=== PATIENT | male | born 1960 | race Caucasian/White ===

== ENCOUNTER 2020-07-23 08:48 | Inpatient (IN) | payer OTHER ==
--- NOTE | 2020-07-23 09:01 | BHS.RME ---
Substance Use & Tx History - Substance Use History Alcohol Substance amount: 1 -1.5 pint vokda Frequency of use: Daily Substance route: Oral Date of Last Use: 07/23/20 (started age 13) Heroin Substance amount: $20 Frequency of use: Daily Substance route: Injection (ex: intravenous or skin popping) Date of Last Use: 07/22/20 (started age 17) Cocaine- Powder Substance amount: $20 Frequency of use: Daily Substance route: Injection (ex: intravenous or skin popping) Date of Last Use: 07/22/20 (started age 18) Nicotine Substance amount: 1 pack Frequency of use: Daily Substance route: Smoking Date of Last Use: 07/23/20 (started age 23) Physical/Psych/Mental Status - Behavior General Behavior: Increased activity (restlessness, agitation) Eye Contact: Normal - Cooperativeness Cooperativeness: Cooperative - Thinking Thought Processes: Tight, Logical, Goal Directed - Physical Health Problems Is patient presently having any pain?: No Does patient presently have any injuries (include location): No Does patient currently have a fever: No Is patient : No CIWA Nausea/Vomitin-Mild Nausea/No Vomiting Muscle Tremors: 4-Moderate,w/Arms Extend Anxiety: 3 Agitation: 3 Paroxysmal Sweats: 6 Orientation: 0-Oriented Tacttile Disturbances: 1-Very Mild Itch/Numbness Auditory Disturbances: 0-None Visual Disturbances: 0-None Headache: 1-Very Mild CIWA-Ar Total Score: 19
[2020-07-23 09:35] VITALS: BMI 23.6
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
[2020-07-23] MEDS ORDERED: BISMUTH SUBSALICYLATE 262 MG/15 ML BTL PO PRN (10:18)
[2020-07-23] MEDS ORDERED: MENTHOL/PHENOL 1 EACH UD MM PRN (10:18)
[2020-07-23] MEDS ORDERED: MAGNESIUM CITRATE 300 ML BOTTLE PO PRN (10:18)
[2020-07-23] MEDS ORDERED: NICOTINE POLACRILEX 2 MG GUM BUC PRN (10:18)
[2020-07-23] MEDS ORDERED: METHOCARBAMOL 500 MG TABLET PO PRN (10:18)
[2020-07-23] MEDS ORDERED: ONDANSETRON *ODT* 4 MG TABLET SL PRN (10:18)
[2020-07-23] MEDS ORDERED: chlordiazePOXIDE HCL 25 MG CAPSULE PO PRN (10:18)
[2020-07-23] MEDS ORDERED: ACETAMINOPHEN 325 MG TABLET (FP) PO PRN ×2 (10:18)
[2020-07-23] MEDS ORDERED: IBUPROFEN 400 MG TABLET (FP) PO PRN (10:18)
[2020-07-23] MEDS ORDERED: MAG HYDROX/AL HYDROX/SIMETH 30 ML UNIT-DOSE CUP PO PRN (10:18)
[2020-07-23] MEDS ORDERED: MAGNESIUM HYDROX 2400MG/30ML ORAL SUSPENSION 30 ML CUP PO PRN (10:18)
[2020-07-23] MEDS ORDERED: AMMONIUM LACTATE 12% LOTION 225 GM BOTTLE TP PRN (10:21)
--- OUTSIDE RECORDS SUMMARY | 2020-07-23 11:32 | XMS ---
:1960 Author Organization [facility] Care Team Providers Name Role Phone Bryn De Leon Unavailable Alayna Anne Unavailable Vicky Hendrickson (R) Unavailable Cristian Metzger Unavailable NURSING, FM Unavailable Unavailable Antwon Unavailable JULIANA Unavailable Unavailable Behrouzi Unavailable Lona (R) Unavailable Alton Unavailable Vinnie Unavailable Re-disclosure Warning The records that you are about to access may contain information from federally- assisted alcohol or drug abuse programs. If such information is present, then the following federally mandated warning applies: This information has been disclosed to you from records protected by federal confidentiality rules (42 CFR part 2). The federal rules prohibit you from making any further disclosure of this information unless further disclosure is expressly permitted by the written consent of the person to whom it pertains or as otherwise permitted by 42 CFR part 2. A general authorization for the release of medical or other information is NOT sufficient for this purpose. The Federal rules restrict any use of the information to criminally investigate or prosecute any alcohol or drug abuse patient.The records that you are about to access may contain highly sensitive health information, the redisclosure of which is protected by Article 27-F of the [facility] Public Health law. If you continue you may haveaccess to information: Regarding HIV / AIDS; Provided by facilities licensed or operated by the [facility] Office of Mental Health; or Provided by the [facility] Office for People With Developmental Disabilities. If such information is present, then the following [facility] mandated warning applies: This information has been disclosed to you from confidential records which are protected by state law. State law prohibits you from making any further disclosure of this information without the specific written consent of the person to whom it pertains, or as otherwise permitted by law. Any unauthorized further disclosure in violation of state law may result in a fine or nursing home sentence or both. A general authorization for the release of medical or other information is NOT sufficient authorization for further disclosure. Allergies and Adverse Reactions Type Description Substance Reaction Status Data Source(s ) SYSTEMIC NO KNOWN ALLERGIES NO KNOWN ALLERGIES [facility]IC ALLERGIES NOT ON FILE ALLERGIES NOT ON [facility] Encounters Encounter Providers Location Date Indications Data Source(s ) Outpatient Attender: Rob 06/30/2020 [facility] [place] 09:28:17 AM [facility] EDT - 06/30/2020 09:51:46 AM EDT Patient admitted. Outpatient Attender: Vicky 06/26/2020 11:16:35 AM The [facility] Patient admitted. Outpatient Attender: JACQUE ANDREWS 06/01/2020 02:02:36 PM The [facility] Patient admitted. Outpatient Attender: Rob 06/01/2020 01:17:53 PM The [facility] Patient admitted. Outpatient Attender: JACQUE ANDREWS 06/01/2020 11:56:13 AM The [facility] Patient admitted. Outpatient Attender: JACQUE ANDREWS 04/28/2020 03:50:15 PM The [facility] Patient admitted. Outpatient Attender: Vicky 04/22/2020 03:55:12 PM The [facility] Patient admitted. Outpatient Attender: JACQUE ANDREWS 03/11/2020 02:08:46 PM The [facility] - 03/12/2020 01:05:33 Family [facility] EDT Patient admitted. Outpatient Attender: Alayna Anne 03/10/2020 04:59:07 PM The [facility] Patient admitted. Outpatient Attender: Rob 03/10/2020 09:06:01 AM The [facility] Patient admitted. Outpatient Attender: Vicky 02/27/2020 11:28:52 AM The [facility] - 02/28/2020 [facility]alt 11:57:00 AM EDT Patient admitted. Outpatient Attender: JACQUE ANDREWS 02/26/2020 05:01:36 PM The [facility] Patient admitted. Outpatient Attender: JACQUE ANDREWS 02/19/2020 12:00:00 AM The [facility] - 02/19/2020 05:40:08 [facility] PM EDT Patient admitted. Outpatient Attender: Sowmya 02/12/2020 09:03:35 AM The [facility] Patient admitted. Outpatient Attender: JACQUE ANDREWS 02/12/2020 12:00:00 AM The [facility] - 02/12/2020 11:10:00 [facility] AM EDT Patient admitted. Outpatient Attender: Vicky 02/07/2020 08:24:02 AM The [facility] - 02/07/2020 [facility] 12:08:31 PM EDT Patient admitted. Outpatient Attender: Vicky 02/05/2020 08:44:37 AM The [facility] 02/05/2020 [facility] 04:16:41 PM EDT Patient admitted. Outpatient Attender: JACQUE ANDREWS 02/05/2020 12:00:00 AM The [facility] - 02/05/2020 11:11:14 [facility] AM EDT Patient admitted. Outpatient Attender: Vicky 02/04/2020 01:31:46 PM The [facility] Patient admitted. Outpatient Attender: Pranav Kapoor 01/28/2020 08:24:29 AM EDT The [facility] 01/28/2020 10:09:32 AM Health EDT Patient admitted. Outpatient Attender: JACQUE ANDREWS 01/28/2020 12:00:00 AM The [facility] - 01/28/2020 12:10:56 [facility] PM EDT Patient admitted. Outpatient Attender: Karen 01/27/2020 03:16:52 PM The [facility] Patient admitted. Outpatient Attender: Dada Dang 01/16/2020 08:24:13 AM The [facility] - 01/16/2020 [facility] 07:15:16 PM EDT Patient admitted. Outpatient Attender: Sowmya 12/17/2019 09:48:15 AM The [facility] Patient admitted. Outpatient Attender: Sowmya 11/20/2019 04:25:56 PM The [facility] Patient admitted. Outpatient Attender: JULIETTE 09/26/2019 01:22:45 PM The [facility] Patient admitted. Outpatient Attender: Sowmya 09/21/2019 09:54:17 AM The [facility] Patient admitted. Outpatient Attender: Tomasa Del Castillo 09/05/2019 01:26:37 PM The [facility] Patient admitted. Outpatient Attender: Toamsa Del Castillo 08/29/2019 05:15:18 PM The [facility] Patient admitted. Outpatient Attender: Tomasa Del Castillo 08/07/2019 12:35:29 PM The [facility] - 08/07/2019 [facility] 01:30:45 PM EDT Patient admitted. Outpatient Attender: Bryn 07/23/2019 03:38:40 PM The [facility] Patient admitted. Outpatient Attender: Bryn 07/12/2019 03:55:[address] [facility] - 07/19/2019 Family [facility] ealth 01:13:04 PM EDT Patient admitted. Outpatient Attender: Tomasa Del Castillo 07/01/2019 01:15:41 PM The [facility] - 07/01/2019 [facility] 01:28:43 AM EDT Patient admitted. Outpatient Attender: Dada Dang 05/30/2019 11:36:41 AM The [facility] - 05/30/2019 [facility] 01:28:15 PM EDT Patient admitted. Immunizations Vaccine Date Status Description Data Source(s) Influenza, 06/27/2019 completed Influenza, 06/27/2019 [facility] 12:00:00 AM EDT [facility] For Family [place] Canine Carla Canine [facility] Kidney, Kidney, Quadrivalent Quadrivalent Medications Medication Brand Start Product Dose Route Administrative Pharmacy [facility] Indications Reaction Description Data Name Date Form Instructions Instructions Source(s) Glecaprevir Oral active Hep C w/o Ta ke 3 The -Pibrentasv 2019 {tbl} coma, tablets by [place] ir 100-40 12:00: chronic mouth amarilys y For Family MG Oral Tab 00 AM (HCC) Health EDT Hep C w/o coma, chronic (HCC) Aspirin aspirin 06/29/2020 81 Oral active Essential T gamaliel The 81 MG 81 MG 12:00:00 AM mg hypertension ONE [place] Delayed Oral EC EDT tablet For Fam tod Release tablet (81 mg Health Oral total) Tablet by aspirin mouth 81 MG daily Oral EC tablet Essential hypertension ALBUTEROL 9740-1502-66 06/29/2020 216 Inhalation active Mod erate Inhale The SULFATE 12:00:00 AM ug persistent TWO [place] (VENTOLIN EDT asthma puffs For Fam tod HFA) 108 without (216 Health (90 Base) complication mcg MCG/ACT total) Inhalation every Aero Soln 4-5 hours Moderate persistent asthma without compl ication Ketoconazole Ketoconazole 2 06/29/2020 active [place] a Apply The 20 MG/ML % Apply 12:00:00 AM cristine ibarra e [place] Topical Cream externally EDT daily as For Family Ketoconazole 2 Cream needed to Health % Apply affected externally area Cream Tinea cruris gabapentin Gabapentin 06/29/2020 300 Oral active Schizoaffe ctive Take ONE The 300 MG Oral 300 MG Oral 12:00:00 AM mg disorder, capsule [place] Capsule Cap EDT bipolar type (300 mg F or Family Gabapentin (HCC) total) Health 300 MG Oral by mouth Cap 2 (two) times a day Schizoaffective disorder, bipolar type ( HCC) Lisinopril lisinopril 06/29/2020 20 Oral active Essential Take The 20 MG Oral 20 MG Oral 12:00:00 AM mg hypertensio n ONE [place] Tablet tablet EDT tablet For Famil y lisinopril (20 mg Health 20 MG Oral total) tablet by mouth daily Essential hypertension 60 ACTUAT Mometasone 06/29/2020 220 Inhalation active Mild asthma, Inhale The mometasone Furoate 220 12:00:00 AM ug unspecifie d ONE puff [place] furoate 0.2 MCG/INH EDT whether (220 mc g For Family MG/ACTUAT Inhalation complicated, t otal) Health Dry Powder AEROSOL unspecified nigh tly Inhaler POWDER, whether Mometasone BREATH persistent Furoate 220 ACTIVATED MCG/INH Inhalation AEROSOL POWDER, BREATH ACTIVATED Mild asthma, unspecified whether complic ated, unspecified whether persistent aripiprazole Aripiprazole 06/01/2020 10 Oral active Schizo affective Take The 10 MG Oral 10 MG Oral 12:00:00 AM mg disorder, ONE [place] Tablet Tab EDT bipolar type tablet For Family Aripiprazole (HCC) (10 mg Heal th 10 MG Oral total) Tab by mouth daily Schizoaffective disorder, bipolar type ( HCC) PARoxetine [address]-3 06/01/2020 40 Oral active Schizoaf fective Take The HCl 40 MG 12:00:00 AM mg disorder, ONE [place] Oral Tab EDT bipolar type tablet F or Family (HCC) (40 mg Health total) by mouth daily Schizoaffective disorder, bipolar type ( HCC) gabapentin Gabapentin 06/01/2020 300 Oral aborted Schizoaff ective Take ONE The 300 MG Oral 300 MG Oral 12:00:00 AM mg disorder, capsule [place] Capsule Cap EDT bipolar type (300 mg F or Family Gabapentin (HCC) total) Health 300 MG Oral by mouth Cap 2 (two) times a day Schizoaffective disorder, bipolar type ( HCC) gabapentin Gabapentin 03/10/2020 300 Oral aborted Schizoaff ective Take ONE The 300 MG Oral 300 MG Oral 12:00:00 AM mg disorder, capsule [place] Capsule Cap EDT bipolar type (300 mg F or Family Gabapentin (HCC) total) Health 300 MG Oral by mouth Cap 2 (two) times a day Schizoaffective disorder, bipolar type ( HCC) Take ONE capsule (300 mg total) by mouth 2 (two) times a day PARoxetine [address]-6 03/10/2020 40 Oral aborted Schizoa ffective Take The HCl 40 MG 12:00:00 AM mg disorder, ONE [place] Oral Tab EDT bipolar type tablet F or Family (HCC) (40 mg Health total) by mouth daily Schizoaffective disorder, bipolar type ( HCC) Take ONE tablet (40 mg total) by mouth d aily aripiprazole Aripiprazole 03/10/2020 10 Oral aborted Schiz oaffective Take The 10 MG Oral 10 MG Oral 12:00:00 AM mg disorder, ONE [place] Tablet Tab EDT bipolar type tablet For Family Aripiprazole (HCC) (10 mg Heal th 10 MG Oral total) Tab by mouth daily Schizoaffective disorder, bipolar type ( HCC) Take ONE tablet (10 mg total) by mouth d aily NARCAN KIT 02/28/2020 active Preventive Administer 1 The 12:00:00 AM measure mg each In stitute EDT nostril as For Famil y needed. May Health repeat in 3-5 minutes. Dispensed by physician. Preventive measure Administer 1 mg each nostril as needed. May repeat in 3-5 minutes. Dispensed by physician. atorvastatin Atorvastatin 02/05/2020 10 Oral active Hyperlipidemia, Take ONE The 10 MG Oral Calcium 10 MG 12:00:00 AM mg unspecif ied tablet [place] Tablet Oral Tab EDT hyperlipidemia (10 mg For Family Atorvastatin type total) Healt h Calcium 10 MG by mouth Oral Tab nightly Hyperlipidemia, unspecified hyperlipidem ia type Take ONE tablet (10 mg total) by mouth n ightly Lisinopril lisinopril 02/05/2020 20 Oral aborted Essential Take The 20 MG Oral 20 MG Oral 12:00:00 AM mg hypertensio n ONE [place] Tablet tablet EDT tablet For Famil y lisinopril (20 mg Health 20 MG Oral total) tablet by mouth daily Essential hypertension Take ONE tablet (20 mg total) by mouth d aily Aspirin aspirin 02/05/2020 81 Oral aborted Essential Take The 81 MG 81 MG 12:00:00 AM mg hypertension ONE [place] Delayed Oral EC EDT tablet For Fam tod Release tablet (81 mg Health Oral total) Tablet by aspirin mouth 81 MG daily Oral EC tablet Essential hypertension Take ONE tablet (81 mg total) by mouth d aily ALBUTEROL [id number] 02/05/2020 216 Inhalation aborted Mo derate Inhale The SULFATE 12:00:00 AM ug persistent TWO [place] (VENTOLIN EDT asthma puffs For Fam tod HFA) 108 without (216 Health (90 Base) complication mcg MCG/ACT total) Inhalation every Aero Soln 4-5 hours Moderate persistent asthma without compl ication Inhale TWO puffs (216 mcg total) every 4 -5 hours PARoxetine [address]-0 01/16/2020 40 Oral completed Schiz oaffective Take The HCl 40 MG 12:00:00 AM mg disorder, ONE [place] Oral Tab EDT bipolar type tablet F or Family (HCC) (40 mg Health total) by mouth daily Schizoaffective disorder, bipolar type ( HCC) Take ONE tablet (40 mg total) by mouth d aily gabapentin Gabapentin 12/17/2019 300 Oral completed S chizoaffective Take ONE The 300 MG Oral 300 MG Oral 12:00:00 AM mg disorder, capsule [place] Capsule Cap EST bipolar type (300 mg F or Family Gabapentin (HCC) total) Health 300 MG Oral by mouth Cap 2 (two) times a day Schizoaffective disorder, bipolar type ( HCC) Take ONE capsule (300 mg total) by mouth 2 (two) times a day 60 ACTUAT Mometasone 12/17/2019 220 Inhalation aborted Mild asthma, Inhale The mometasone Furoate 220 12:00:00 AM ug unspecifie d ONE puff [place] furoate 0.2 MCG/INH EST whether (220 mc g For Family MG/ACTUAT Inhalation complicated, t otal) Health Dry Powder AEROSOL unspecified nigh tly Inhaler POWDER, whether Mometasone BREATH persistent Furoate 220 ACTIVATED MCG/INH Inhalation AEROSOL POWDER, BREATH ACTIVATED Mild asthma, unspecified whether complic ated, unspecified whether persistent Inhale ONE puff (220 mcg total) nightly 60 ACTUAT Mometasone 11/20/2019 220 Inhalation complet ed Mild asthma, Inhale The mometasone Furoate 220 12:00:00 AM ug unspecifie d ONE puff [place] furoate 0.2 MCG/INH EST whether (220 mc g For Family MG/ACTUAT Inhalation complicated, t otal) Health Dry Powder AEROSOL unspecified nigh tly Inhaler POWDER, whether Mometasone BREATH persistent Furoate 220 ACTIVATED MCG/INH Inhalation AEROSOL POWDER, BREATH ACTIVATED Mild asthma, unspecified whether complic ated, unspecified whether persistent Inhale ONE puff (220 mcg total) nightly Albuterol albuterol 07/12/2019 2.5 completed Moderate Take ONE vial The 0.83 MG/ML (2.5 12:00:00 AM mg persistent ( 2.5 mg [place] Inhalant MG/3ML) EDT asthma total) via For Family Solution 0.083% without nebulizatio n Health albuterol Inhalation complication e very 4-6 (2.5 nebulizer (four-six) MG/3ML) solution hours as 0.083% needed for Inhalation shortness of nebulizer breath or solution cough Moderate persistent asthma without compl ication Take ONE vial (2.5 mg total) via nebuliz ation every 4-6 (four-six) hours as needed for shortness of breath or cough Respiratory [id number] 07/12/2019 active Moderate Use with The Therapy 12:00:00 AM persistent albu terol [place] Supplies EDT asthma solution For F amily (NEBULIZER without every 4-6 H ealth COMPRESSOR) complication hours as Does not needed apply Kit Moderate persistent asthma without compl ication Use with albuterol solution every 4-6 ho urs as needed Nutritional [id number] 07/12/2019 1 Oral active Unintent ional Take 1 The Supplements 12:00:00 AM {can} weight loss Can by [place] (ENSURE EDT mouth For Family COMPLETE) 2 Health Oral Liquid (two) times a day Unintentional weight loss Take 1 Can by mouth 2 (two) times a day atorvastatin Atorvastatin 07/12/2019 10 Oral complet ed Hyperlipidemia, Take ONE The 10 MG Oral Calcium 10 MG 12:00:00 AM mg unspecif ied tablet [place] Tablet Oral Tab EDT hyperlipidemia (10 mg For Family Atorvastatin type total) Healt h Calcium 10 MG by mouth Oral Tab nightly Hyperlipidemia, unspecified hyperlipidem ia type Take ONE tablet (10 mg total) by mouth n ightly 120 ACTUAT Fluticasone 07/12/2019 110 Inhalation completed Moderate Inhale The Fluticasone Propionate 12:00:00 AM ug persistent ONE [place] propionate HFA (FLOVENT EDT asthma puff For Family 0.11 HFA) 110 without (110 Health MG/ACTUAT MCG/ACT complication mcg Metered Dose Inhalation total) Inhaler Aerosol 2 (two) Fluticasone times a Propionate day HFA (FLOVENT HFA) 110 MCG/ACT Inhalation Aerosol Moderate persistent asthma without compl ication Inhale ONE puff (110 mcg total) 2 (two) times a day ALBUTEROL [id number] 07/12/2019 216 Inhalation completed Moderat e Inhale The SULFATE 12:00:00 AM ug persistent TWO [place] (VENTOLIN EDT asthma puffs For Fam tod HFA) 108 without (216 Health (90 Base) complication mcg MCG/ACT total) Inhalation every Aero Soln 4-5 hours Moderate persistent asthma without compl ication Inhale TWO puffs (216 mcg total) every 4 -5 hours Aspirin aspirin 07/12/2019 81 Oral completed Essential Take The 81 MG 81 MG 12:00:00 AM mg hypertension ONE [place] Delayed Oral EC EDT tablet For Fam tod Release tablet (81 mg Health Oral total) Tablet by aspirin mouth 81 MG daily Oral EC tablet Essential hypertension Take ONE tablet (81 mg total) by mouth d aily Clotrimazole clotrimazole 1 07/12/2019 completed P aronychia Apply to The 10 MG/ML % Apply 12:00:00 AM of right af fected [place] Topical Cream externally EDT middle are twice For Family clotrimazole 1 cream finger daily H ealth % Apply externally cream Paronychia of right middle finger Apply to affected are twice daily Lisinopril lisinopril 07/12/2019 20 Oral completed Essenti al Take The 20 MG Oral 20 MG Oral 12:00:00 AM mg hypertensio n ONE [place] Tablet tablet EDT tablet For Famil y lisinopril (20 mg Health 20 MG Oral total) tablet by mouth daily Essential hypertension Take ONE tablet (20 mg total) by mouth d ailjayna gabapentin Gabapentin 07/12/2019 300 Oral completed S chizoaffective Take ONE The 300 MG Oral 300 MG Oral 12:00:00 AM mg disorder, capsule [place] Capsule Cap EDT bipolar type (300 mg F or Family Gabapentin (HCC) total) Health 300 MG Oral by mouth Cap 2 (two) times a day Schizoaffective disorder, bipolar type ( HCC) Take ONE capsule (300 mg total) by mouth 2 (two) times a day PARoxetine [id number] 07/01/2019 40 Oral completed Schiz oaffective Take The HCl 40 MG 12:00:00 AM mg disorder, ONE [place] Oral Tab EDT bipolar type tablet F or Family (HCC) (40 mg Health total) by mouth daily Schizoaffective disorder, bipolar type ( HCC) Take ONE tablet (40 mg total) by mouth d aily aripiprazole Aripiprazole 07/01/2019 10 Oral aborted Schiz oaffective Take The 10 MG Oral (ABILIFY) 10 12:00:00 AM mg disorder, ONE [place] Tablet MG Oral Tab EDT bipolar type tab let For Family Aripiprazole (HCC) (10 mg Heal th (ABILIFY) 10 total) MG Oral Tab by mouth daily Schizoaffective disorder, bipolar type ( HCC) FLUCELVAX [id number] 06/27/2019 active DIRECTED The QUADRIVALENT 12:00:00 AM INTRA MUSCULARLY [place] Intramuscular EDT For Fa edmund [facility] Health DIRECTED INTRAMUSCULARLY lidocaine [id number] 05/30/2019 25 Subcutaneous complete d Paronychia The (XYLOCAINE) 01:30:00 PM mg of right [place] 1 % EDT middle For Family injection finger Health Paronychia of right middle finger Clotrimazole clotrimazole 1 05/30/2019 aborted Par onychia Apply to The 10 MG/ML % Apply 12:00:00 AM of right af fected [place] Topical Cream externally EDT middle are twice For Family clotrimazole 1 cream finger daily H ealth % Apply externally cream Paronychia of right middle finger Sulfamethoxazole 800 MG / Sulfamethoxazole-Trimethoprim 05/30/2019 1 Oral active Paronychia Take The Trimethoprim 160 MG Oral (BACTRIM DS) 800-160 MG Oral 12:00:00 AM {tbl} of right ONE [place] Tablet Tab EDT middle tablet For Famil y Sulfamethoxazole-Trimethoprim finge r by Health (BACTRIM DS) 800-160 MG Oral mouth 2 Tab (two) times a day for 10 days for 10 days Paronychia of right middle finger aripiprazole Aripiprazole 02/25/2019 10 Oral aborted Schiz oaffective Take The 10 MG Oral (ABILIFY) 10 12:00:00 AM mg disorder, ONE [place] Tablet MG Oral Tab EDT bipolar type tab let For Family Aripiprazole (HCC) (10 mg Heal th (ABILIFY) 10 total) MG Oral Tab by mouth daily Schizoaffective disorder, bipolar type ( HCC) PARoxetine [id number] 02/25/2019 40 Oral aborted Schizoa ffective Take The HCl 40 MG 12:00:00 AM mg disorder, ONE [place] Oral Tab EDT bipolar type tablet F or Family (HCC) (40 mg Health total) by mouth daily Schizoaffective disorder, bipolar type ( HCC) ALBUTEROL [id number] 02/05/2019 216 Inhalation aborted Moderate Inhale TWO The SULFATE 108 12:00:00 AM ug persistent puffs (216 [place] (90 Base) EDT asthma mcg total) Fo r Family MCG/ACT without every 4-6 Heal th Inhalation complication (four- six) Aero Soln hours as needed Moderate persistent asthma without compl ication 120 ACTUAT Fluticasone 02/05/2019 110 Inhalation aborted Mo derate Inhale The Fluticasone Propionate 12:00:00 AM ug persistent ONE [place] propionate HFA (FLOVENT EDT asthma puff For Family 0.11 HFA) 110 without (110 Health MG/ACTUAT MCG/ACT complication mcg Metered Dose Inhalation total) Inhaler Aerosol 2 (two) Fluticasone times a Propionate day HFA (FLOVENT HFA) 110 MCG/ACT Inhalation Aerosol Moderate persistent asthma without compl ication atorvastatin Atorvastatin 02/05/2019 10 Oral aborted Hyperlipidemia, Take ONE The 10 MG Oral Calcium 10 MG 12:00:00 AM mg unspecif ied tablet [place] Tablet Oral Tab EDT hyperlipidemia (10 mg For Family Atorvastatin type total) Healt h Calcium 10 MG by mouth Oral Tab nightly Hyperlipidemia, unspecified hyperlipidem ia type Nystatin 100 Nystatin 02/05/2019 completed Tinea p laura, Apply to The UNT/MG [id number] 12:00:00 AM unspecified af fected [place] Topical UNIT/GM EDT laterality area For Family Powder Apply twice Health Nystatin externally daily [id number] Powder UNIT/GM Apply externally Powder Tinea pedis, unspecified laterality Apply to affected area twice daily Lisinopril lisinopril 02/05/2019 20 Oral aborted Essential Take The 20 MG Oral 20 MG Oral 12:00:00 AM mg hypertensio n ONE [place] Tablet tablet EDT tablet For Famil y lisinopril (20 mg Health 20 MG Oral total) tablet by mouth daily Essential hypertension Aspirin aspirin 02/05/2019 81 Oral aborted Essential Take The 81 MG 81 MG 12:00:00 AM mg hypertension ONE [place] Delayed Oral EC EDT tablet For Fam tod Release tablet (81 mg Health Oral total) Tablet by aspirin mouth 81 MG daily Oral EC tablet Essential hypertension Insurance Providers Payer name Policy type Policy ID Covered Covered democrat's Policy P marisa / Coverage democrat ID relationship to [employer] ormation type [employer] [id number] SP [id number] H [place]ICAID [place] [id number] Self [id number] [place] [id number] Self [id number] [employer] [id number] Self [id number] [employer] [id number] Self [id number] [employer] HARP [id number] [place]ICAID [place] Medicaid 125 125 MEDICAID [place] Medicaid 125 125 [employer] HARP [id number] Problems, Conditions, and Diagnoses Code Display Name Description Problem Type Effective Data Dates Source(s) F11.21 Opioid use Opioid use [id number] 02/05/2020 The [place] disorder, moderate, disorder, moderate, 12:00:0 0 AM For Family in early remission, in early remission, EDT Health on maintenance on maintenance therapy therapy B18.2 Hep C w/o coma, Hep C w/o coma, [id number] 02/05/2020 The [place] chronic chronic 12:00:00 AM For Family EDT Health R74.0 Transaminitis Transaminitis [id number] 09/23/2019 [facility] 12:00:00 AM For Family EST Health B35.6 Tinea cruris Tinea cruris Diagnosis 06/26/2020 The [facility] [place] 11:16:35 AM For Family EDT Health Transfer Note Transfer Note Diagnosis 06/01/2020 The [facility] 02:02:36 PM For Family EDT Health Missed Appointment Missed Appointment Diagnosis 0 The [place] 03:50:15 PM For Family EDT Health B18.2 Chronic viral Chronic viral Diagnosis 04/23/2020 The [facility] hepatitis C hepatitis C 02:37:43 PM For Family EDT Health M54.30 Sciatica, Sciatica, Diagnosis 02/27/2020 The [place] unspecified side unspecified side 11:28:52 AM F or Family EDT Health Z29.9 Encounter for Encounter for Diagnosis 02/27/2020 The [facility] [place] prophylactic prophylactic 11:28:52 AM For Famil y measures, measures, EDT Health unspecified unspecified F11.20 Opioid dependence, Opioid dependence, Diagnosis 0 The [place] uncomplicated uncomplicated 11:28:52 AM For Fam tod EDT Health Enrollment Enrollment Diagnosis 02/19/2020 The [place] 11:40:37 AM For Family EDT Health Schizoaffective Schizoaffective Diagnosis 02/19/2020 The [place] Disorder Disorder 11:40:37 AM For Family EDT Health Virtual Visit Virtual Visit Diagnosis 02/19/2020 The [facility] [place] (Telephone Only) (Telephone Only) 11:40:37 AM F or Family EDT Health Request For Appt Request For Appt Diagnosis 02/12/2020 Th e [place] 09:03:35 AM For Family EDT Health R35.0 Frequency of Frequency of Diagnosis 02/07/2020 The [facility] micturition micturition 08:24:02 AM For Family EDT Health Z12.11 Encounter for Encounter for Diagnosis 02/07/2020 The [facility] screening for screening for 08:24:02 AM For Leonard baron malignant neoplasm malignant neoplasm EDT Health of colon of colon R10.32 Left lower quadrant Left lower quadrant Diagnosis 020 The [place] pain pain 08:24:02 AM For Family EDT Health Physical Physical Diagnosis 02/07/2020 The [place] 08:24:02 AM For Family EDT Health F11.21 Opioid dependence, Opioid dependence, Diagnosis 0 The [place] in remission in remission 03:39:34 PM For Famil y EDT Health E78.5 Hyperlipidemia, Hyperlipidemia, Diagnosis 02/05/2020 The [place] unspecified unspecified 08:44:37 AM For Family EDT Health M10.00 Idiopathic gout, Idiopathic gout, Diagnosis 02/05/2020 Th e [place] unspecified site unspecified site 08:44:37 AM F or Family EDT Health N48.9 Disorder of penis, Disorder of penis, Diagnosis 0 The [place] unspecified unspecified 08:44:37 AM For Family EDT Health F17.200 Nicotine Nicotine Diagnosis 02/05/2020 The [place] dependence, dependence, 08:44:37 AM For Family unspecified, unspecified, EDT Health uncomplicated uncomplicated M54.32 Sciatica, left side Sciatica, left side Diagnosis 020 [facility] [place] 08:44:37 AM For Family EDT Health M54.31 Sciatica, right Sciatica, right Diagnosis 02/05/2020 The [place] side side 08:44:37 AM For Family EDT Health Z71.89 Other specified Other specified Diagnosis 02/05/2020 The [place] counseling counseling 08:44:37 AM For Family EDT Health Other Other Diagnosis 02/04/2020 The [place] 01:31:46 PM For Family EDT Health Z71.3 Dietary counseling Dietary counseling Diagnosis 0 The [place] and surveillance and surveillance 08:24:29 AM F or Family EDT Health Z68.22 Body mass index Body mass index Diagnosis 01/28/2020 The [place] (BMI) 22.0-22.9, (BMI) 22.0-22.9, 08:24:29 AM F or Family adult adult EDT Health R63.3 Feeding Feeding Diagnosis 01/28/2020 The [place] difficulties difficulties 08:24:29 AM For Famil y EDT Health Outreach Outreach Diagnosis 01/27/2020 [facility] [place] 03:16:52 PM For Family EDT Health Results Results Diagnosis 09/26/2019 The [place] 01:22:45 PM For Family EST Health Refill Follow-up Refill Follow-up Diagnosis 09/26/2019 e [place] 01:22:45 PM For Family EST Health R74.0 Nonspecific Nonspecific Diagnosis 09/23/2019 [facility] elevation of levels elevation of levels 03:08:3 0 PM For Family of transaminase and of transaminase and EST Health lactic acid lactic acid dehydrogenase [LDH] dehydrogenase (ldh) R63.4 Abnormal weight Abnormal weight Diagnosis 09/21/2019 The [place] loss loss 09:54:17 AM For Family EST Health Z23 Encounter for Encounter for Diagnosis 09/21/2019 The [facility] [place] immunization immunization 09:54:17 AM For Famil y EST Health Follow-up for: Follow-up for: Diagnosis 09/21/2019 The In stitute 09:54:17 AM For Family EST Health Discharge Discharge Diagnosis 09/05/2019 The [place] 01:26:37 PM For Family EST Health Z12.2 Encounter for Encounter for Diagnosis 07/12/2019 The [facility] [place] screening for screening for 03:55:16 PM For Fam tod malignant neoplasm malignant neoplasm EDT Health of respiratory of respiratory organs organs L03.011 Cellulitis of right Cellulitis of right Diagnosis 019 [facility] [place] finger finger 03:55:16 PM For Family EDT Health Needs Letter Needs Letter Diagnosis 07/12/2019 The [facility] [place] 03:55:16 PM For Family EDT Health Surgeries/Procedures Procedure Description Date Indications Data Source(s) CBC WITH CBC WITH Routine 02/07/2020 Hep C 02/07/2020 Hep C The DIFFERENTIAL DIFFERENTIAL 9:16 AM EDT w/o 09:16:00 A M w/o [place] AND PLATELETS AND PLATELETS coma, EDT coma , For Family chronic chronic Health (HCC) (HCC) Hep C w/o coma, chronic (HCC) HEP A HEP A Routine 02/07/2020 Hep C w/o 02/07/2020 Hep C w/ o The AB.,TOTAL AB.,TOTAL 9:16 AM EDT coma, 09:16:00 AM coma , [place] W/ REFLEX W/ REFLEX chronic EDT chronic For Family (HCC) (HCC) Health Hep C w/o coma, chronic (HCC) 4TH GEN HIV 4TH GEN HIV Routine 02/07/2020 Hep C w/o 02/07/2020 Hep C The TEST-IFH TEST-IFH 9:16 AM EDT coma, 09:16:00 AM w/o [place] RECOMMENDED RECOMMENDED chronic EDT coma, For Family (HCC) chronic Health (HCC) Hep C w/o coma, chronic (HCC) HEP B HEP B Routine 02/07/2020 Hep C w/o 02/07/2020 Hep C w/ o The CORE AB, CORE AB, 9:16 AM EDT coma, 09:16:00 AM coma, [place] IGG IGG chronic EDT chronic For Fami ly (HCC) (HCC) Health Hep C w/o coma, chronic (HCC) URINALYSIS URINALYSIS Routine 02/07/2020 Left lower 02/07/2020 L eft lower The (COMPLETE) (COMPLETE) 9:16 AM EDT quadrant 09:16:00 AM q uadrant [place] abdominal EDT abdominal For Family pain pain Health Left lower quadrant abdominal pain COMP COMP Routine 02/07/2020 Hep C w/o 02/07/2020 Hep C w/ o The METABOLIC METABOLIC 9:16 AM EDT coma, 09:16:00 AM coma , [place] PANEL PANEL chronic EDT chronic For Fami ly (HCC) (HCC) Health Hep C w/o coma, chronic (HCC) HGA1C (HGB HGA1C (HGB Routine 02/07/2020 Urinary 02/07/2020 Urin melanie The GLYCOSYLATED) GLYCOSYLATED) 9:16 AM EDT frequency 09:16: 00 AM frequency [place] EDT For Fami ly Health Urinary frequency PROTHROMBIN PROTHROMBIN Routine 02/07/2020 Hep C w/o 02/07/2020 Hep C The TIME WITH INR TIME WITH INR 9:16 AM EDT coma, 09:16:00 AM w/o [place] chronic EDT coma, For Fami ly (HCC) chronic Health (HCC) Hep C w/o coma, chronic (HCC) TDAP TDAP Routine 09/21/2019 Need for prophylactic 019 Need for prophylactic The VACCINE VACCINE 11:07 AM vaccination with combined 11:07 :06 AM vaccination with combined [place] 7/> YR SQ IMM EST rbgdtvjewe-sofzuqm-gjapodnnj EST hukfxovprs-npomxgd-dzgcrbkwm For [facility] (DTP) vaccine (DTP) vacc ine Health Need for prophylactic vaccination with c ombined kycynidbgs-bxsfatx-hvnfjyvsb (DTP) vaccine COMP COMP Routine 09/21/2019 Weight 09/21/2019 Weight Th e METABOLIC METABOLIC 11:06 AM EST loss 11:06:00 AM [facility] s [place] PANEL PANEL EST For Fami ly Health Weight loss CBC WITH CBC WITH Routine 09/21/2019 Weight 09/21/2019 Weight The DIFFERENTIAL DIFFERENTIAL 11:06 AM EST loss 11:06:00 AM loss [place] AND PLATELETS AND PLATELETS EST For [facility] [employer] Weight loss HGA1C (HGB HGA1C (HGB Routine 09/21/2019 Weight 09/21/2019 Sergio ht The GLYCOSYLATED) GLYCOSYLATED) 11:06 AM loss 11:06:00 AM loss [place] EST EST For [facility] ly Health Weight loss LIPID LIPID Routine 09/21/2019 Weight 09/21/2019 Weight Th e PANEL PANEL 11:06 AM EST loss 11:06:00 AM loss [place] EST For Fami ly Health Weight loss Results ID Date Data Source [id number] 02/07/2020 12:08:33 PM EDT [facility] Reason for Visit and Comments: Physic al [83]Vitals (Last Filed):BP 151/91 (Orthostatic Site : Arm - Left, Orthostatic Pos- ition : Sitting, Orthostatic Cuff Size : Large Adult) P- ulse 72 Temp 98.8 F (37.1 C) (Oral) Ht 5 7" (1.702- m) Wt 157 lb (71.2 kg) BMI 24.59 kg/l7EmaadfKacy Meier 02/07/2020 12:08 PM SignedI have identified this patient to be Yehuda Padilla, -1960.Chief ComplaintPatient presents with? PhysicalBP (!) 151/91 (O rthostatic Site : Arm - Left, Orthostatic Position : Sitting,Orthostatic Cuff Size : Large Ad ult) | Pulse 72 | Temp 98.8 F (37.1 C)(Oral) | Ht 5 7" (1.702 m) | Wt 157 lb (71.2 kg) | BMI 24.59 kg/mPatient states he has pain in the side.Vicky Hendrickson MD 02/07/2020 12 :08 PM SignedI have identified this patient to be Carson Padilla, -1960.Chief Com plaintPatient presents with? PhysicalSUBJECTIVE:59 year old male with history ofPatient Active [employer] List Diagnosis Date Noted? Hep C w/o coma, chronic (HCC) 02/05/2020? Opioid use di sorder, moderate, in early remission, on maintenance therapy(HCC) 02/05/2020? Transaminitis 09/23/2019? Tobacco abuse 02/05/2019? Health care maintenance 05/24/2018 05/24/2018ASCVD ri sk 12.8%>rec mod/high intensity statin (+) aspirin? Opioid dependence on agonist therapy (HC C) 03/31/2015 Patient reports currently taking 20 mg daily.[facility]: HELP [address]? H ypertension 07/01/2014? Back pain 07/01/2014? Neck pain 07/01/2014 Is followed by pain man agement in [place]- is given Percocet.? Asthma 07/01/2014 Moderate persistent. Was int ubated in 1996.? Breast mass 07/01/2014 Mass comes and goes. Had a mammogram 2 1/2 years ago? Schizoaffective disorder (HCC) 10/25/2013presenting for : Bloodwork, follow up3 days L sided abd ominal pain. Gets some relief after BM. Normal stool, nodiarrhea/constipation/vomiting.No feve rs.Wants to treat Hep C, will plan to get abd USOBJECTIVE:BP (!) 151/91 (Orthostatic S ite : Arm - Left, Orthostatic Position : Sitting,Orthostatic Cuff Size : Large Ad ult) | Pulse 72 | Temp 98.8 F (37.1 C)(Oral) | Ht 5 7" (1.702 m) | Wt 157 lb (71.2 kg) | BMI 24.59 kg/mVital signs are as noted by the nurse.Gen: no apparent distress; coopera tive, pleasantPsych: normal mood/affectHENT: NCAT; apthous ulcer noted at buccal mucosaLung s: clear to auscultation bilaterally; no wheezing, rhonchi or ralesdetected on exam; symmet candido air movement bilaterallyHeart: normal s1,s2; normal rate, regular rhythm; no murmursAbdomen: soft, nondistended, diffuse L sided tenderness to palpation w/voluntary guarding, no rebou ndWt Readings from Last 3 Encounters:02/07/20 157 lb (71.2 kg)09/21/19 154 lb (69.9 kg) 157 lb 9.6 oz (71.5 kg)Temp Readings from Last 3 Encounters:02/07/20 98.8 F (37.1 C) (O ral)09/21/19 98.2 F (36.8 C) (Oral)07/12/19 98.2 F (36.8 C) (Oral)BP Readings from Last 3 Encounters:02/07/20 (!) 151/ 132/ 108/67Pulse Readings from Last 3 Encount ers:02/07/20 54Results for orders placed or performed in visit on 09/21/19 HGA1C (HGB GLYCOSYLATED)Result Value Ref Range HEMOGLOBIN A1C 5.4 <5.7 %CBC WITH DIFFER ENTIAL AND PLATELETSResult Value Ref Range WHITE BLOOD CELL (WBC) COUNT 6.92 3.66 - 10.60 x10(3 )/uL RED BLOOD CELL (RBC) COUNT 4.48 3.94 - 5.76 x10(6)/uL HEMOGLOBIN 12.9 12.0 - 16.9 g/ dL HEMATOCRIT 40.3 34.6 - 49.6 % MCV 90.0 78.0 - 98.0 fL MCH 28.8 25.8 - 33.1 pg MCHC 32.0 31.7 - 35.3 g/dL RDW 14.3 12.2 - 15.3 % POLYS 60.0 34.9 - 75.3 % POLYS, ABS. COUNT 4.15 1.30 - 7.00 x10 (3)/uL LYMPHOCYTES 28.2 14.0 - 51.8 % LYMPHS, ABS. COUNT 1.95 0.80 - 3.00 x10(3)/uL MONOCYTES 9.4 3.5 - 13.2 % MONOS, ABS. COUNT 0.65 0.00 - 1.00 x10(3)/uL EOSINOPHILS 2.0 0.0 - 6.2 % EO S, ABS. COUNT 0.14 0.00 - 0.40 x10(3)/uL BASOPHILS 0.3 0.0 - 1.0 % BASOS, ABS. COUNT 0.02 0.00 - 0.10 x10(3)/uL IMMATURE GRANULOCYTES 0.1 0.0 - 1.0 % PLATELETS 270 140 - 425 x10(3)/uL MPV 9. 7 8.6 - 12.1 fLCOMP METABOLIC PANELResult Value Ref Range PROTEIN, TOTAL, SERUM 7.3 5.9 - 8. 4 g/dL ALBUMIN 4.1 3.5 - 5.2 g/dL GLOBULIN, TOTAL 3.2 1.7 - 3.7 g/dL A/G RATIO 1.3 1.1 - 2.9 R atio SODIUM 144 135 - 147 mmol/L POTASSIUM 4.7 3.5 - 5.5 mmol/L CHLORIDE 104 96 - 108 mmol/L CARB ON DIOXIDE 26 22 - 29 mmol/L UREA NITROGEN (BUN) 11 6 - 20 mg/dL CREATININE 0.87 0.67 - 1.31 mg/ dL EGFR 95 >or=60 mL/min EGFR 110 >or=60 mL/min BUN/CREATININE RATIO 12.6 10.0 - 28.0 Ratio CALCIUM 9.4 8.6 - 10.4 mg/dL BILIRUBIN, TOTAL 0.3 <1.2 mg/dL ALKALINE PHOSPHATASE 153 40 - 156 U/L AST (SGOT) 95 (H) <40 U/L ALT (SGPT) 135 (H) <41 U/L GLUCOSE 95 70 - 99 mg/dLLIPID PANELResult Value Ref Range CHOLESTEROL 180 <200 mg/dL HDL CHOLESTEROL 61 >40 mg /dL TRIGLYCERIDES 124 <150 mg/dL HDL % OF CHOLESTEROL 34 >14 % CHOL/HDL RATIO 3.0 <7.4 HDL/LDL RATIO 1.54 <3.56 LDL CHOLESTEROL 94 <100 mg/dL VLDL Cholesterol Arnol 25 7 - 32 mg/dL NON HDL CHOL. (LDL+VLDL) 119 <130 mg/dLASSESSMENT/PLAN:After a discussion of the available treatment op tions (including risks,benefits and alternatives), and using a shared-decision making model [place] [employer] pplicable, the following plan was reached in collaboration with the patient(and/or hi s/her guardian as indicated):1. Left lower quadrant abdominal painPatient to present for [facility]- CULTURE, URINE; Future- URINALYSIS (COMPLETE); Future- URINALYSIS (COMPLETE )- CULTURE, URINE2. Special screening for malignant neoplasms, colon- FECAL GLOBIN BY IMMUNO CHEMISTRY3. Urinary frequency- URINE DIP W/O MICRO IN HOUSE- HGA1C (HGB GLYCOSYLATED)4. Hep C w/o coma, chronic (HCC)- 4TH GEN HIV TEST-IFH RECOMMENDED- HEP A AB.,TOTAL W/ REFLEX- HEP B CORE AB, IGG- PROTHROMBIN TIME WITH INR- COMP METABOLIC PANEL- CBC WITH DIFFERENTIAL A ND PLATELETS- HEP C FIBROSURE/FIBROTEST/ACTITEST- HEP C GENOTYPING- HEP C VIRUS RNA PCR, QUANTFu ture AppointmentsDate Time Provider Department [place]02/12/2020 10:45 AM Jacque Andrews [facility]02/24/2020 9:40 AM Rob Metzger, PMP [facility]02/28/2020 8:45 AM Vicky Hendrickson MD [facility]03/11/2020 3:00 PM Vicky Hendrickson MD [facility] Yaron Fonseca Diagnosis:R10.32 Left lower quadrant abdominal pain Other Diagnoses :Z12.11 Special screening for malignant neoplasms, colon R35.0 Urinary frequency B18.2 Hep C w/o coma, chronic (HCC) R10.32 Left lower quadrant pain (Active) Comment:Billing Diagnosis Z12.11 Encounter for screening for malignant neoplasm ofcolon (Active) Comment:Billing Diagnosis R35.0 Frequency of micturition (Acti ve) Comment:Billing Diagnosis B18.2 Chronic viral hepatitis C (Active) Comment:Billing DiagnosisPrescriptions a s of 02/07/2020 Disp Refills Start End ALBUTEROL SULFATE (VENTOLIN HFA) 1* 1 In* 3 02/05/2020 Class: E Prescribing Route: Inhalation Sig: Inhale TWO p uffs (216 mcg total) every 4-5 hours aspirin 81 MG Oral EC tablet 30 t* 3 02/05/2020 06/04/2020 Class: E Prescribing Route: Oral Sig: Take ONE tablet (81 mg tota l) by mouth daily Atorvastatin Calcium 10 MG Oral Tab 30 t* 3 02/05/2020 06/04/2020 Class: E Prescribing Route: Oral Sig: Take ONE tablet (10 mg total) by mouth nightly FLUCELVAX QUADRIVALENT Intramuscul* 0 06/27/2019 Class: Historical Med Si g: DIRECTED INTRAMUSCULARLY Gabapentin 300 MG Oral Cap 60 c* 2 12/17/2019 Class: E Prescribing Route: Oral Sig: Take ONE capsule (300 mg total) by mouth 2 (two) times a day Heating Pads (MOIST HEAT PACK) [place]* 10 e* 1 02/05/2019 Class: E Presc ribing Sig: Use daily for pain lisinopril 20 MG Oral tablet 30 t* 3 06/04/2020 Class: E Prescribing Route: Oral Sig: Take ONE tablet (20 mg tota l) by mouth daily Mometasone Furoate 220 MCG/INH Inh* 1 In* 2 12/17/2019 Class: E Prescribing Route: Inhalation Sig: Inhale ONE puff (220 mcg total) nightly Nutritional S upplements (ENSURE CO* 60 B* 5 07/12/2019 Class: E Prescribing Route: Oral S ig: Take 1 Can by mouth 2 (two) times a day PARoxetine HCl 40 MG Oral Tab 30 t * 1 01/16/2020 Class: E Prescribing Route: Oral Sig: Take ONE tablet (40 mg total) by mouth daily Respiratory Therapy Supplies (NEBU* 1 kit 0 07/12/2019 C lass: E Prescribing Sig: Use with albuterol solution every 4-6 hours as neededFacility-Admini stered Medications as of 02/07/2020 Start End lidocaine (XYLOCAINE) 1 % injecti on 05/30/2019 11/24/2019 Class: Administered Route: Subcutaneous D ose: 2.5 mL Frequency: OnceAllergies As of Date: 02/07/2020(No Known Allergies)Date Revie wed: 01/16/2020Reviewed by: Dada Dang PA - ReviewedLevel of Service:[id number] OFFIC /OUTPT VISIT E&M EST LOW-MOD SEVER* Historical Information Past Medical and Surgical HistoryMedical And Surgical History Item DateAsthmaGeneralized anxiety disorderHypertensionFamily History Pr oblem Relation Age of Onset Psychiatry Father Comments: suicide Psychiatry Paternal Grandfather Comments: suicide Psychiatry Brother Comments: suicide attempt Ps ychiatry Mother Comments: "institutuionalized"Family Status - Rela tion Status Age at Father Paternal Grandfather Brother M otherSocial History Marital Status: Single Spouse: Years of Education: # children:Social History Narrative Lives with ex girlfriend 06/28/2018 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 Susan house: [phone] x [phone]; social media designer neyda Krishnan ent s cell phone: [phone] 02/05/2019 Lives in shared apartment as of nov 2018, previou s to that was homeless.Social History Topics Tobacco Use: Yes Cigarettes (Packs/Day ): .5 Alcohol Use: Yes 2 oz/week 4 drinks per week Comment: patient reports drave nking 4 small "nips" bottles Drug Use: Yes Frequency: 5 per week Types: Mar ijuana Sexually Active: NeverImmunizations Administered Influenza, In Elbert nixon* 06/27/2019 Influenza, Seasonal, Injectable 08/03/2016 0 07/06/2017 Pneumococcal polysaccharide vaccin* 07/01/2014 influenza, injectable, quadr ivalen* 08/27/2018 Name Value Range Interpretation Code Description Data Tessa rce(s) Supporting Document(s ) ID Date Data Source [id number] 02/13/2020 11:41:00 AM EDT [facility] Name Value Range Interpretation Description Data Sup porting Code Source(s) Document(s ) OCCULT BLOOD NEGATIVE NEGATIVE [facility] IMMUNOCHEM [facility] ID Date Data Source [id number] 02/12/2020 04:52:00 PM EDT [facility] Name Value Range Interpretation Description Data Sup porting Code Source(s) Document(s ) HEPATITIS C Type 3 See Below The GENOTYPE [facility] NOTE: Hepatitis C Virus Genotype/Subtype assay is an FDA approved assay able to identify the following subtypes: 1a , 1b, 1, 2, 3, 4, 5, 6. ASSAY INFORMATION: Test# 2161 (Hepatitis C Genotype) perfor med using Siemens Versant(R) HCV Genotype 2.0 Assay (LiPA) . ID Date Data Source [id number] 02/11/2020 01:37:00 PM EDT [facility] Name Value Range Interpretation Description Data Sup porting Code Source(s) Document(s ) BILIRUBIN, TOTAL 0.4 mg/dL <1.2 [facility] G-GTP 20 U/L 10-71 [facility] ALT (SGPT) 42 U/L <41 Above high The normal [facility] APOLIPOPROTEIN 164 mg/dL 104-202 The A1 [facility] HAPTOGLOBIN 138 mg/dL 30-200 [facility] [id number] 248 mg/dL 130-300 The BULIN [facility] FIBROSIS SCORE 0.24 NA [facility] FIBROSIS STAGE F0-F1 [facility] FIBROSIS INTERP no The fibrosis [facility] NECROINFLAMMAT 0.22 NA The ACTIVITY SCORE [facility] NECROINFLAMMAT A0-A1 The ACTIVITY GRADE [facility] NECROINFLAMMAT no The INTERP activity [facility] FIBROSIS AND NECROINFLAMMATION SCORES AND INTERPR ETATIONS FibroTest Score Metavir Score0.00-0.21 F0 no fibrosis0.22-0.27 F0-F10.28-0.31 F1 minimal fibrosis0.32-0.48 F1-F20.49-0.58 F2 moderate fibrosis0.59-0.72 F3 advanced fibrosis0.73-0.74 F3-F40.75-1.00 F4 severe fibrosis ActiTest Score Metavir Score0.00-0.17 A0 no activity0.18-0.29 A0-A10.30-0.36 A1 min imal activity0.37-0.52 A1-A20.53-0.60 A2 significant activity0.61-0.62 A2-A30.63-1.00 A3 severe activity Performed By: [place] [address] [facility] [id number] [place] [address] P: [phone] Precautions:The reliability of results is dependent on compliance with the preanal ytical and analytical conditions recommendedby [employer].The tests have to be deferred for: acute hemolysis, acute hep atitis, acute inflammation, extrahepatic cholestasis.The advice of a specialist should be sought for interpretation in c hronic hemolysis and [place] s syndrome.The test interpretation is not validated in liver transplant patients.Isolated extre me values of one of the components should lead to caution in interpreting the results.In case of discordance between a biopsy result and a test, it is recommended to seek the advice of agastroenterologist.The causes of these discordances could be due to a flaw in the biopsy: i.e. a liver biopsy has a 25% variabilityrate for one fibrosis stage. Interpretability:FibroTest(R) is interpretable for chronic Hepatitis B and C, alcoholic and nonalcoholic steatosis (NA SH).ActiTest(R) is interpretable for chronic Hepatitis B and C. References: 1. Mi NN, et al. FibroTest Fibrosure f or Significant Liver Fibrosis and Cirrhosis in Chronic Hepatitis B: A [place]-Analysis. Am J Gastroenterol 2014; 109:796-809. 2. Shay G, et al. The impact of liver disease aetiology and the stages of hepatic fibrosis on the performance of non invasive fibrosis markers: an international study of 2411 cases. Aliment Pharmacol Ther 2011 ;34:7485-6670. ID Date Data Source [id number] 02/10/2020 01:56:00 PM EDT [facility] Name Value Range Interpretation Code Description Data Tessa rce(s) Supporting Document(s ) HEP 67423 <15 Above high normal The Institut [facility] C,RNA,IU IU/mL For [facility] HEP C ULTRAQUANT, RNA INTERPRETATION HEP-C (IU/mL) Interpretation <15 N D Not Detected <15 D Detected 15 - >30,000,000 Detected NOTE: The STACEY 88 00 HCV Test is not intended for use as the sole diagnostic test to confirm the presence of HCV infection. NOTE: Results for Elaina STACEY 8800 HEP C Quantitative assa y reports with a range of <15-30 million IU/mL. HEP C,RNA,(LOG-10) 4.95 log-10 <1.18 Above high normal [facility] ID Date Data Source [id number] 02/09/2020 11:29:00 AM EDT [facility] Name Value Range Interpretation Description Data Sup porting Code Source(s) Document(s ) CULTURE, NO GROWTH NO GROWTH The URINE [facility] SITE: URINE ID Date Data Source [id number] 02/08/2020 11:20:00 AM EDT [facility] Name Value Range Interpretation Code Description Data Tessa rce(s) Supporting Document(s ) HBCAB Reactive Non-Reacti Abnormal (applies The Institu te ve to non-numeric For Family results) Health Hepatitis B Result Inte rpretation (for reference use only) Marker L I/EA* Acute Past Chronic HBV Vacc. HBsAg + + - + -HBeAg + + - +/- -HEP.B.CORE AB,IgM - + - - -HEP.B.CORE AB. - + + + -HBeAb - - +/- +/- -HBsAb - - +/- - +*Late Incubation/Early Acute NOTE: In remote p ast infection, HBsAb level may be Negative or Non-Reactive in some patients. ID Date Data Source [id number] 02/08/2020 11:20:00 AM EDT [facility] Name Value Range Interpretation Description Data Sup porting Code Source(s) Document(s ) HEPATITIS A Non-React Non-Reac The ANTIBODY maya tive [facility] ID Date Data Source [id number] 02/08/2020 11:20:00 AM EDT [facility] Name Value Range Interpretation Description Data Sup porting Code Source(s) Document(s ) HIV 1/2 Non-React Non-React The [place] AB, EIA maya maya Count Includes The [facility] Assay Information: Assay for the detecti on of HIV p24 antigen and antibodies to Human Immunodeficiency Virus Type 1,including Group O (HIV-1 + "O") and/or T ype 2 (HIV-2) Method: Chemiluminescence ([employer] ID Date Data Source [id number] 02/08/2020 05:46:00 AM EDT [facility] Name Value Range Interpretation Description Data Sup porting Code Source(s) Document(s ) PROTEIN, 7.2 g/dL 5.9-8.4 The TOTAL, SERUM [facility] ALBUMIN 4.2 g/dL 3.5-5.2 [facility] GLOBULIN, 3.0 g/dL 1.7-3.7 The TOTAL [facility] A/G RATIO 1.4 1.1-2.9 The Ratio [facility] SODIUM 140 135-147 The mmol/L [facility] POTASSIUM 4.4 3.5-5.5 The mmol/L [facility] CHLORIDE 103 96-108 The mmol/L [facility] CARBON DIOXIDE 23 22-29 The mmol/L [facility] UREA NITROGEN 14 mg/dL 6-20 The (BUN) [facility] CREATININE 0.96 0.67-1.3 The mg/dL 1 [facility] EGFR 87 >or=60 The mL/min [facility] EGFR 101 >or=60 The NAMIBIAN mL/min [facility] BUN/CREATININE 14.6 NA 10.0-28. The RATIO 0 [facility] CALCIUM 9.5 8.6-10.4 The mg/dL [facility] BILIRUBIN, 0.4 <1.2 The TOTAL mg/dL [facility] ALKALINE 74 U/L 40-156 The PHOSPHATASE [facility] AST (SGOT) 44 U/L <40 Above high normal [facility] ALT (SGPT) 42 U/L <41 Above high normal [facility] GLUCOSE 109 70-99 Above high normal The mg/dL [facility] ID Date Data Source [id number] 02/08/2020 05:14:00 AM EDT [facility] Name Value Range Interpretation Description Data Sup porting Code Source(s) Document(s ) HEMOGLOBIN A1C 5.5 % <5.7 [facility] HEMOGLOBIN A1c AND eAG REFERENCE RANGES A1c(%) DIABETES CATEGORY* <5.7 Normal (non-diabetic) 5.7-6.4 Increased ri sk of diabetes =>6.5 Consistent with diabetes A1c(%) eAG(ESTIMATED AVERAGE PLASMA GLUCOSE)(mg/dL) 6 126 7 154 8 183 9 212 10 240 11 269 12 298 *recom mended ranges-[place] [employer](2010) NOTE: The amount of gl ycated hemoglobin as measured by the HbA1c test may be overestimated in Reina n Americans and should not be used as the sole parameter of glycemic burden. Similarly, hemolysis, genetic hemoglobin variants and chemically modified hemoglo bin derivatives (as seen in renal failure, smoking, aspirin use) may also affect glycated hemoglobin levels. ID Date Data Source [id number] 02/08/2020 02:56:00 AM EDT [facility] Name Value Range Interpretation Description Data Sup porting Code Source(s) Document(s ) PROTIME 10.3 sec 9.1-11.9 [facility] INTR. NORM. 0.92 NA 0.80-1.07 The RATIO(INR) [facility] CLINICAL INDICATIONS FOR INR USE Reference RangeProphylaxis or treatment of venous thrombosis, 2.00-3.00systemic embolization, and pulm onary embolus High-risk patients with mechanical heart valves 2.50-3.50 Normal Non-Medicated Patients 0.80-1.07 NOTE: INR values be low 2.00 for patients on warfarin therapy would be considered sub-therapeu tic for the above conditions. ID Date Data Source [id number] 02/08/2020 02:53:00 AM EDT [facility] Name Value Range Interpretation Description Data Sup porting Code Source(s) Document(s ) SPECIFIC 1.006 NA 1.003-1.03 The GRAVITY, UR 0 [place] (S.G.) Count Includes [facility] PH, UR 5.5 NA 5.0-8.0 [facility] PROTEIN, NEGATIVE NEGATIVE The TOTAL, RANDOM [place] URINE Count Includes [facility] GLUCOSE, NEGATIVE NEGATIVE The URINE, QUAL. [facility] KETONE, QUAL. NEGATIVE NEGATIVE [facility] UROBILINOGEN 0.2 mg/dL 0.2-1.0 [facility] BILIRUBIN, NEGATIVE NEGATIVE The URINE [facility] BLOOD, URINE NEGATIVE NEGATIVE [facility] NITRITE, UR NEGATIVE NEGATIVE The (NI) [facility] CRYSTALS NONE NONE [facility] WBC, URINE 0-4 /[HPF] 0-4 [facility] RBC, URINE NONE SEEN NONE SEEN The /[HPF] [facility] CAST, RBC, NONE SEEN 0-1 The URINE /[LPF] [facility] CAST, HYALINE, 0-4 /[LPF] 0-4 The URINE [facility] CAST, NONE NONE-FEW The EPITHELIAL, [place] URINE Count Includes [facility] CAST, NONE SEEN 0-1 The GRANULAR, /[LPF] [place] URINE Count Includes [facility] BACTERIA, NONE NONE-FEW The URINE [facility] CRYSTALS, NONE NONE The OTHER, URINE /[HPF] [facility] LEUKOCYTE NEGATIVE NEGATIVE The ESTERASE [facility] COLOR YELLOW YELLOW, The STRAW, [place] JEREMY Count Includes [facility] CHARACTER CLEAR CLEAR [facility] ID Date Data Source [id number] 02/08/2020 02:32:00 AM EDT [facility] Name Value Range Interpretation Description Data Sup porting Code Source(s) Document(s ) WHITE BLOOD 7.51 3.66-10. The CELL (WBC) x10(3)/u 60 [place] COUNT L Count Includes [facility] RED BLOOD CELL 4.64 3.94-5.7 The (RBC) COUNT x10(6)/u 6 [place] L Count Includes [facility] HEMOGLOBIN 13.8 12.0-16. The g/dL 9 [facility] HEMATOCRIT 40.6 % 34.6-49. The 6 [facility] MCV 87.5 fL 78.0-98. The 0 [facility] MCH 29.7 pg 25.8-33. The 1 [facility] MCHC 34.0 31.7-35. The g/dL 3 [facility] RDW 12.8 % 12.2-15. The 3 [facility] POLYS 57.9 % 34.9-75. The 3 [facility] POLYS, ABS. 4.36 1.30-7.0 The COUNT x10(3)/u 0 [place] L [facility] LYMPHOCYTES 30.8 % 14.0-51. The 8 [facility] LYMPHS, ABS. 2.31 0.80-3.0 The COUNT x10(3)/u 0 [place] [facility] MONOCYTES 8.0 % 3.5-13.2 [facility] MONOS, ABS. 0.60 0.00-1.0 The COUNT x10(3)/u 0 [place] [facility] EOSINOPHILS 2.3 % 0.0-6.2 [facility] EOS, ABS. COUNT 0.17 0.00-0.4 The x10(3)/u 0 [place] [facility] BASOPHILS 0.7 % 0.0-1.0 [facility] BASOS, ABS. 0.05 0.00-0.1 The COUNT x10(3)/u 0 [place] [facility] IMMATURE 0.3 % 0.0-1.0 The GRANULOCYTES [facility] PLATELETS 264 140-425 The x10(3)/u [place] L Count Includes [facility] MPV 10.2 fL 8.6-12.1 [facility] ID Date Data Source [id number] 09/27/2019 01:09:08 PM EST [facility] Reason for Visit and Comments: Refill Follow-up [226] - for allopurinal Results [95] - to bring to foot doctor as oer pt Left W ithout Being seen [220]Tai Farah MA 09/27/2019 1:09 PM SignedI have identified this pa tient to be Carson Padilla, -1960.Patient stated that he spoke with Dr. Ruben philip about a new prescription.Needed to see a doctor for the new prescription but patient stated that hecould stay and wait to be seen and would like to come back in the ,orning as awalk-in.Pat ient left with-out being seenEshEmi Pereira left prior to being seen.Primary Diagnos is:[id number] LEFT WITHOUT BEING SEENPrescriptions as of 09/27/2019 Disp Refills S tart End albuterol (2.5 MG/3ML) 0.083% Inha* 100 * 3 07/12/2019 10/10/2019 Class: E Prescribing Route: Nebulization Sig: Take ONE vial (2.5 mg total) via nebulization every 4-6 (four-six) hours as needed for shortness of breath or cough ALBUTERO L SULFATE (VENTOLIN HFA) 1* 1 In* 3 07/12/2019 Class: E Prescribing Route: Inhala tion Sig: Inhale TWO puffs (216 mcg total) every 4-5 hours aspirin 81 MG Oral EC tablet 30 t* 3 07/12/2019 11/09/2019 Class: E Prescribing Route: Oral Sig: Take ONE tablet (81 mg total) by mouth daily Atorvastatin Calcium 10 MG Oral Tab 30 t* 3 07/12/2019 11/09/2019 Class: E Prescribing Route: Oral Sig: Take ONE tablet (10 mg tota l) by mouth nightly clotrimazole 1 % Apply externally * 45 g 2 07/12/2019 10/10/20 19 Class: E Prescribing Sig: Apply to affected are twice daily FLUCELVAX QUADRIVALENT In tramuscul* 0 06/27/2019 Class: Historical Med Sig: DIRECTED INTRA MUSCULARLY Fluticasone Propionate HFA (FLOVEN* 1 In* 3 07/12/2019 Class: E Presc ribing Route: Inhalation Sig: Inhale ONE puff (110 mcg total) 2 (two) times a day Gabape ntin 300 MG Oral Cap 60 c* 5 07/12/2019 Class: E Prescribing Rou te: Oral Sig: Take ONE capsule (300 mg total) by mouth 2 (two) times a day Heating Pad s (MOIST HEAT PACK) [place]* 10 e* 1 02/05/2019 Class: E Prescribing Sig: Use daily f or pain lisinopril 20 MG Oral tablet 30 t* 3 07/12/2019 11/09/2019 Class: E Prescribing Route: Oral Sig: Take ONE tablet (20 mg total) by mouth daily Nutritional Supplements (ENSURE CO* 60 B* 5 07/12/2019 Class: E Prescribing Route: Oral S ig: Take 1 Can by mouth 2 (two) times a day PARoxetine HCl 40 MG Oral Tab 30 t * 1 07/01/2019 Class: E Prescribing Route: Oral Sig: Take ONE tablet (40 mg total) by mouth daily Respiratory Therapy Supplies (NEBU* 1 kit 0 07/12/2019 C lass: E Prescribing Sig: Use with albuterol solution every 4-6 hours as neededFacility-Admini stered Medications as of 09/27/2019 Start End lidocaine (XYLOCAINE) 1 % injecti on 05/30/2019 11/24/2019 Class: Administered Route: Subcutaneous D ose: 2.5 mL Frequency: OnceAllergies As of Date: 09/26/2019(No Known Allergies)Date Revie wed: 09/21/2019Reviewed by: Anuj Cano - ReviewedLevel of Service:ERROR NON Historical Information Past Medical and Surgical HistoryMedical And Surgical History Item DateAsthmaGeneralized anxiety disorderHypertensionFamily History Pr oblem Relation Age of Onset Psychiatry Father Comments: suicide Psychiatry Paternal Grandfather Comments: suicide Psychiatry Brother Comments: suicide attempt Ps ychiatry Mother Comments: "institutuionalized"Family Status - Rela tion Status Age at Father Paternal Grandfather Brother M otherSocial History Marital Status: Single Spouse: Years of Education: # children:Social History Narrative Lives with ex girlfriend 06/28/2018 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 [place] house: [phone] x [phone]; 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: [phone] 02/05/2019 Lives in shared apartment as of nov 2018, previou s to that was homeless.Social History Topics Tobacco Use: Yes Cigarettes (Packs/Day ): .5 Alcohol Use: Yes 2 oz/week 4 drinks per week Comment: patient reports dri nking 4 small "nips" bottles Drug Use: Yes Frequency: 5 per week Types: Mar césara Sexually Active: NeverImmunizations Administered Influenza, In Elbert nixon* 06/27/2019 Influenza, Seasonal, Injectable 08/03/2016 0 07/06/2017 Pneumococcal polysaccharide vaccin* 07/01/2014 influenza, injectable, quadr ivalen* 08/27/2018 Name Value Range Interpretation Code Description Data Tessa rce(s) Supporting Document(s ) ID Date Data Source [id number] 09/23/2019 05:20:27 PM [facility] The [place] [facility] Reason for Visit and Comments: Follow -up for: [92] - Patient state here for follow up visit Blood Pressure [15] - Patien ts blood pressure is elevated , with headachesand palpitations since this mor ningVitals (Last Filed):BP 132/78 (Orthostatic Site : Arm - Right, Orthost atic Cu- ff Size : Adult) Pulse 62 Temp 98.2 F (36.8 C) (Ora- l) Resp 18 Ht 5 7" (1.702 m) Wt 154 lb (69.9 kg) - SpO2 100% BMI 24.12 kg/c9Ljwrmf History RecordedAmi Cano 09/23/2019 5:20 PM SignedI have identified this patient to be Carson Lopez, HAZEL -1960.Vitals: 09/21/19 1016 09/21/19 1020BP: (!) 162/92 (!) 164/98Or thostatic Site : Arm - Right Arm - LeftOrthostatic Position : Sitting Sitti ngOrthostatic Cuff Size : Adult AdultPulse: 62Resp: 18Temp: 98.2 F (36.8 C)TempSrc : OralSpO2: 100%Weight: 154 lb (69.9 kg)Height: 5 7" (1.702 m)Chief Complain tPatient presents with Follow-up for: Patient state here for follow up visit Blood Pressure Patients blood pressure is elevated , with headaches and palpitatio ns sincethis morning Headache since this morning.[facility]. 1 lav, 1 sst tubessent to bioreferance lab. He tolera stefanie the procedure well and will return [facility] for results.Cherie Wilde MAKirkpatrick, Kelly, DO 09/23/2019 5:20 PM SignedSUBJECTIVE:HPI : I have identified this patient to be Carson PadillaHAZEL -1960 w/ aPMHx of asth ma, HTN, on MMT, schizoaffective disorder, who presents forChief ComplaintPatient p resents with Follow-up for: Patient state here for follow up visit Blood Pressure Patients blood pressure is elevated , with headaches and palpitations sincethis chilango russell#left ear pain - about 1 week, concerned about wax build up#anxiety is building u p, is concerned that BP is because of anxiety. Has beenunable to sleep.-takes paroxitine and one other medication-patient states he has a roommate who is making h im more nervous-would like to see a counselor for talk therapy not just medication man agement#sciatica - is acting up, on right side.Was referred to physical medicine a nd rehab; was too scared to get an injectionso deferred. Interested in phys ical therapy.#had a jock itch, using cream with improvement#tobacco abuse/lung dise ase/Asthma - not taking flovent, doesn t like thetaste.-albuterol uses it less then on ce per week.OBJECTIVE:PE:BP (!) 164/98 (Orthostatic Site : Arm - Left, Orthosta tic Position : Sitting,Orthostatic Cuff Size : Adult) | Pulse 62 | Temp 98.2 F (36 .8 C) (Oral) |Resp 18 | Ht 5 7" (1.702 m) | Wt 154 lb (69.9 kg) | SpO2 100% | B GA 24.12kg/mThe patient appears well, in no apparent distress. Alert and oriente d timesthree, pleasant and cooperative. Vital signs are as noted by the nurse.Gen: no apparent distress; cooperative, pleasantEyes: normal conjuctiva bilaterally; pupils eq ual, round, reactive to light;extraocular muscles intactEars: external ear canals normal bilaterally; no erythema evident in canalsbilaterally; tympanic membrane vis ualized bilaterally and shiny in appearanceNares: no evidence of nasal dr ainage bilaterally; turbinates normal without anyerythemaOropharynx: no evidence of er ythema or exudatesNeck: supple, no thyromegaly, no adenopathyLungs: clear t o auscultation bilaterally; no wheezing, rhonchi or ralesdetected on exam; symmet candido air movement bilaterallyHeart: normal s1,s2; normal rate, regular rhythm; no m urmurs, rubs, or gallopsAbdomen: normoactive bowel sounds diffusely; soft, nondistend ed, nontender topalpationProcedures/Tests:Results for orders placed or performed in visit on 06/25/18HEPATITIS C ANTIBODY W/ REFLEX R T PCR (REQUIRES 2 VIALS)Result Value Ref Range HEP C AB. S/CO RATIO 0.12 <0.80 HE PATITIS C ANTIBODY Non-Reactive Non-ReactiveHEP B SURFACE AG (HBSAG)Resu lt Value Ref Range HEPATITIS B SURFACE ANTIGEN Non-Reactive Non-ReactiveHEP B S URFACE AB (LABCORP-ORDER QN OPTION)Result Value Ref Range HBSAB Reactive (A) Non-R eactiveQUANTIFERON GOLD TBResult Value Ref Range COMPONENT QFT-GOLD (SEE A322) NEGA TIVE NEGATIVE COMPONENT NIL VALUE (SEE A322) 0.333 COMPONENT TB AG. NIL(SEE A322) -0. 089 MITOGEN NIL 0.629Had negative HIV test last week.ASSESSMENT/PLAN:After a discus simeon of the available treatment options (including risks,benefits and alternativ es), and using a shared-decision making model asapplicable, the following plan was lakesha hua in collaboration with the patient(and/or his/her guardian as indicated):1. Left s ided sciaticaPatient went to physical medicine and rehab and was offered back injection butwas not interested at the time. Discussed with patient trying PT and if noimprovement going back for an injection.- CONSULT TO PHYSICAL THERAPY2. Special sc reening for malignant neoplasms, colon- FECAL GLOBIN BY IMMUNOCHEMISTRY; Future- CONSU LT FOR COLONOSCOPY- FECAL GLOBIN BY IMMUNOCHEMISTRY3. Need for prophylactic vaccination with combined kzwqxprbff-eattesv-hagwytyij(DTP) vaccin e- TDAP VACCINE 7 YRS/> IM; Future- TDAP VACCINE 7 YRS/> IM4. Weight lossRecent w eight loss; likely 2/2 to anxiety but will draw screening labs. Patientstates HIV t est 2 weeks ago that was negative and declines testing today.- CBC WITH DIFFER ENTIAL AND PLATELETS; Future- COMP METABOLIC PANEL; Future- LIPID PANEL; Future- HGA1 C (HGB GLYCOSYLATED); Future- HGA1C (HGB GLYCOSYLATED)- CBC WITH DIFFERENTIAL AND PLATELETS- COMP METABOLIC PANEL- LIPID PANELFuture AppointmentsDate Time Provid er Department Ondjxz1209/25/2019 2:00 PM Behrouzi, Tomasa, PMHNP FPCHPSYCH [facility] 10:00 AM Sowmya Zamorano DO [facility] [employer] Huitron MedicinePrimary Diagnosis:M54.32 Left sided sciatica Other Diagnoses:Z12.11 Special screening for malignant neoplasms, colon Z23 Need fo r prophylactic vaccination with ubvfnrvyowfqrirewc-wvqatpc-kjwpjxenp (DT P) vaccine R63.4 Weight lossPrescriptions as of 09/23/2019 Disp Refills Start End albuterol (2.5 MG/3ML) 0.083% Inha* 100 * 3 07/12/2019 10/10/2019 Class: E Prescribing Route: Nebulizat ion Sig: Take ONE vial (2.5 mg total) via nebulization every 4-6 (four-six) hours as needed for shortness of breath or cough ALBUTEROL SULFATE (VENTOLIN HFA ) 1* 1 In* 3 07/12/2019 Class: E Prescribing Route: Inhalation Sig: Inhale TWO puffs (216 mcg total) every 4-5 hours aspirin 81 MG Oral EC tablet 30 t* 3 07/12/2019 11/09/2019 Class: E Prescribing Route: Oral Sig: Take ONE tablet (81 mg total) by mouth daily Atorvastatin Calcium 10 MG Oral Tab 30 t* 3 07/12/2019 11/09/2019 Class: E Prescribing Route: Oral Sig: Take ONE tablet (10 mg total) by mouth nightly clotrimazole 1 % Apply dental coordinator ally * 45 g 2 07/12/2019 10/10/2019 Class: E Prescribing Si g: Apply to affected are twice daily FLUCELVAX QUADRIVALENT Intramuscul* 0 06/27/2019 Class: Historical Med Sig: DIRECTED INTRAMUSCULARLY Fluticasone Propionate HFA (FLOVEN* 1 In* 3 07/12/2019 Class: E Presc ribing Route: Inhalation Sig: Inhale ONE puff (110 mcg total) 2 (two) times a day Gabapentin 300 MG Oral Cap 60 c* 5 07/12/2019 Class: E Prescribing Route: Oral Sig: Take ONE capsule (300 mg total) by mouth 2 (two) times a day Heating Pads (MOIST HEAT PACK) Linton* 10 e* 1 02/05/2019 Cla ss: E Prescribing Sig: Use daily for pain lisinopril 20 MG Oral tablet 30 t* 3 07/12/2019 11/09/2019 Class: E Prescribing Route: Oral S ig: Take ONE tablet (20 mg total) by mouth daily Nutritional Supplements (ENSURE CO* 60 B* 5 07/12/2019 Class: E Prescribing Route: Oral Sig: Take 1 Can by mouth 2 (two) times a day PARoxetine HCl 40 MG Oral Tab 30 t * 1 07/01/2019 Class: E Prescribing Route: Oral Sig: Take ONE tablet (40 mg total) by mouth daily Respiratory Therapy Supplies (NEBU* 1 ki t 0 07/12/2019 Class: E Prescribing Sig: Use with albuterol s olution every 4-6 hours as neededFacility-Administered Medications as of 09/23/2019 Start End lidocaine (XYLOCAINE) 1 % injection 05/30/2019 11/24/2019 Class: Administered Route: Subcutaneous D ose: 2.5 mL Frequency: OnceAllergies As of Date: 09/21/2019(No Known Allergies)Date Reviewed: 09/21/2019Reviewed by: Anuj Cano - ReviewedLevel of Service:9921 3 OFFIC/OUTPT VISIT E&M EST LOW-MOD SEVER* Histo rical Information ----- ------Past Medical and Surgical HistoryM edical And Surgical History Item DateAsthmaGeneralized anxiety disorderHy pertensionFamily History Problem Relation Age of Onset Psychiatry Father Comments: suicide Psych iatry Paternal Grandfather Comments: suicide Psychi atry Brother Comments: suicide attempt Psychiatry Mother Comments: "institutuionalized"Family Status - Relation Status Age at Father Paternal Grandfath er Brother MotherSocial History Marital Status: Single Spouse: Y ears of Education: # children:Social History Narrative Lives with ex girlfriend 06/28/2018 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 [place] house: [phone] x [phone]; social media designer neyda Murphy Patient s cell phone: 02/05/2019 Lives in shared apartment as of nov 2018, previous to th at was homeless.Social History Topics Tobacco Use: Yes Cigarettes (P acks/Day): .5 Alcohol Use: Yes 2 oz/week 4 drinks per week Comment : patient reports drinking 4 small "nips" bottles Drug Use: Yes Freq uency: 5 per week Types: Marijuana Sexually Active: NeverImmunizations Administered Influenza, Injectable, [place]in [place]* Influenza, Seasonal, Injectable 08/03/2016 07/06/2017 Pneumococcal p olysaccharide vaccin* 07/01/2014 influenza, injectable, quadrivalen* Name Value Range Interpretation Code Description Data Tessa rce(s) Supporting Document(s ) ID Date Data Source [id number] 09/22/2019 06:56:00 AM EST [facility] Name Value Range Interpretation Description Data Sup porting Code Source(s) Document(s ) HEMOGLOBIN A1C 5.4 % <5.7 [facility] HEMOGLOBIN A1c AND eAG REFERENCE RANGES A1c(%) DIABETES CATEGORY* <5.7 Normal (non-diabetic) 5.7-6.4 Increased ri sk of diabetes =>6.5 Consistent with diabetes A1c(%) eAG(ESTIMATED AVERAGE PLASMA GLUCOSE)(mg/dL) 6 126 7 154 8 183 9 212 10 240 11 269 12 298 *recom mended ranges-[place] [employer](2010) NOTE: The amount of gl ycated hemoglobin as measured by the HbA1c test may be overestimated in Reina n Americans and should not be used as the sole parameter of glycemic burden. Similarly, hemolysis, genetic hemoglobin variants and chemically modified hemoglo bin derivatives (as seen in renal failure, smoking, aspirin use) may also affect glycated hemoglobin levels. ID Date Data Source [id number] 09/22/2019 06:18:00 AM EST [facility] Name Value Range Interpretation Description Data Sup porting Code Source(s) Document(s ) WHITE BLOOD 6.92 3.66-10. The CELL (WBC) x10(3)/u 60 [place] COUNT L [facility] RED BLOOD CELL 4.48 3.94-5.7 The (RBC) COUNT x10(6)/u 6 [place] L Count Includes [facility] HEMOGLOBIN 12.9 12.0-16. The g/dL 9 [facility] HEMATOCRIT 40.3 % 34.6-49. The 6 [facility] MCV 90.0 fL 78.0-98. The 0 [facility] MCH 28.8 pg 25.8-33. The 1 [facility] MCHC 32.0 31.7-35. The g/dL 3 [facility] RDW 14.3 % 12.2-15. The 3 [facility] POLYS 60.0 % 34.9-75. The 3 [facility] POLYS, ABS. 4.15 1.30-7.0 The COUNT x10(3)/u 0 [place] [facility] LYMPHOCYTES 28.2 % 14.0-51. The 8 [facility] LYMPHS, ABS. 1.95 0.80-3.0 The COUNT x10(3)/u 0 [place] [facility] MONOCYTES 9.4 % 3.5-13.2 The [facility] Health MONOS, ABS. 0.65 0.00-1.0 The COUNT x10(3)/u 0 [place] [facility] EOSINOPHILS 2.0 % 0.0-6.2 [facility] EOS, ABS. COUNT 0.14 0.00-0.4 The x10(3)/u 0 [place] [facility] BASOPHILS 0.3 % 0.0-1.0 [facility] BASOS, ABS. 0.02 0.00-0.1 The COUNT x10(3)/u 0 [place] [facility] IMMATURE 0.1 % 0.0-1.0 The [facility] PLATELETS 270 140-425 The x10(3)/u [place] [facility] MPV 9.7 fL 8.6-12.1 [facility] ID Date Data Source [id number] 09/22/2019 03:19:00 AM EST [facility] Name Value Range Interpretation Description Data Sup porting Code Source(s) Document(s ) CHOLESTEROL 180 <200 The mg/dL [facility] HDL CHOLESTEROL 61 mg/dL >40 [facility] TRIGLYCERIDES 124 <150 The mg/dL [facility] HDL % OF 34 % >14 The CHOLESTEROL [facility] Evaluation: BELOW AVERAGE RISK CHOL/HDL RATIO 3.0 NA <7.4 The [place] [facility] Evaluation: BELOW AVERAGE RISK HDL/LDL RATIO 1.54 NA <3.56 The [facility] LDL CHOLESTEROL 94 mg/dL <100 [facility] VLDL CHOLESTEROL ARNOL 25 mg/dL 7-32 [facility] NON HDL CHOL. (LDL+VLDL) 119 mg/dL <130 The I [facility] ID Date Data Source [id number] 09/22/2019 03:19:00 AM EST [facility] Name Value Range Interpretation Description Data Sup porting Code Source(s) Document(s ) PROTEIN, 7.3 g/dL 5.9-8.4 The TOTAL, SERUM [facility] ALBUMIN 4.1 g/dL 3.5-5.2 [facility] GLOBULIN, 3.2 g/dL 1.7-3.7 The TOTAL [facility] A/G RATIO 1.3 1.1-2.9 The Ratio [facility] SODIUM 144 135-147 The mmol/L [facility] POTASSIUM 4.7 3.5-5.5 The mmol/L [facility] CHLORIDE 104 96-108 The mmol/L [facility] CARBON DIOXIDE 26 22-29 The mmol/L [facility] UREA NITROGEN 11 mg/dL 6-20 The (BUN) [facility] CREATININE 0.87 0.67-1.3 The mg/dL 1 [facility] EGFR 95 >or=60 The mL/min [facility] EGFR 110 >or=60 The NAMIBIAN mL/min [facility] BUN/CREATININE 12.6 10.0-28. The RATIO Ratio 0 [facility] CALCIUM 9.4 8.6-10.4 The mg/dL [facility] BILIRUBIN, 0.3 <1.2 The TOTAL mg/dL [facility] ALKALINE 153 U/L 40-156 The PHOSPHATASE [facility] AST (SGOT) 95 U/L <40 Above high normal [facility] ALT (SGPT) 135 U/L <41 Above high normal The [facility] GLUCOSE 95 mg/dL 70-99 [facility] ID Date Data Source [id number] 07/19/2019 01:13:04 PM EDT [facility] Reason for Visit and Comments: Physic al [83] - patient stated he is here for a physical. Needs Letter [256]Vitals (L ast Filed):BP 108/67 (Orthostatic Site : Arm - Left, Orthostatic Pos- ition : Sitting, Orthostatic Cuff Size : Adult) Pulse 5- 4 Temp 98.2 F (36.8 C) (Oral) Ht 5 7" (1.702 m) - Wt 157 lb 9.6 oz (71.5 kg) SpO2 96% BMI 24.68 kg/z2DnzbppTavia Park 07/19/2019 1:13 PM SignedI have identified this patient to be Carson Padilla, HAZEL -1960.Chief Com plaintPatient presents with Physical patient stated he is here for a physical . Needs LetterBP 108/67 (Orthostatic Site : Arm - Left, Orthostatic Position : Sitti ng,Orthostatic Cuff Size : Adult) | Pulse 54 | Temp 98.2 F (36.8 C) (Oral) |Ht 5 7" (1.702 m) | Wt 157 lb 9.6 oz (71.5 kg) | SpO2 96% | BMI 24.68 kg/mJessica C Sreekanth martin Andrea, MD 07/19/2019 1:13 PM SignedI have identified this pa tient to be Carson Padilla, -1960.Chief ComplaintPatient present s with Physical patient stated he is here for a physical. Needs LetterSUBJECTIVE: Needs a letter for housing. Printed out the one he has from psych.Will also need a l eliel from medical and a list of his medications.Also notes that he is losing weight. Has lost about 15 pounds. HIV test isnegative. Hasn t had a colonoscopy y et. Does smoke about 1/4 pack per day.Started when he was about 22.Does martinez ve a lot of anxiety living with a roommate.He is also asking for a pain management ref erral because he has sciatica on hisright side.OBJECTIVE:BP 108/67 (Orthostatic Si te : Arm - Left, Orthostatic Position : Sitting,Orthostatic Cuff Size : Adult) | Pulse 54 | Temp 98.2 F (36.8 C) (Oral) |Ht 5 7" (1.702 m) | Wt 157 lb 9.6 oz (71.5 kg) | SpO2 96% | BMI 24.68 kg/mEXAM:The patient appears well, in no apparent distress. Alert and oriented timesthree, pleasant and cooperative. Vi pancho signs are as noted by the nurse.Lungs: clear to auscultationHeart: regular rate and rhythm and no murmurs, clicks, or gallopsAbdomen: soft, non-tender, normal bowel sounds, no masses, no organomegaly.Musculoskeletal: slightly a ntalgic gaitMood: anxiousASSESSMENT/PLAN:(M54.31) Sciatica , right side (primary encounter diagnosis)Comment:Plan: CONSULT TO PAIN MANAGEMENT(I10) Essential hypertensionComment:Plan: aspirin 81 MG Oral EC tablet, lisinopril 20 MG Oral tablet(E78.5) Hyperlipidemia, unspecifie d hyperlipidemia typeComment:Plan: Atorvastatin Calcium 10 MG Oral Tab(J45. 40) Moderate persistent asthma without complicationComment:Plan: Respiratory Th erapy Supplies (NEBULIZER COMPRESSOR) Does not apply Kit, albuterol (2.5 MG/3ML) 0.083% Inhalation nebulizer solution, ALBUTEROL SULFATE (VENTOLIN HFA) 10 8 (90 Base) MCG/ACT Inhalation Aero Soln, Fluticasone Propionate HFA (F LOVENT HFA) 110 MCG/ACT Inhalation Aerosol(F25.0) Schizoaffective disorder, bipolar type (HCC)Comment:Plan: Gabapentin 300 MG Oral Cap(L03.011) Paronychia of r ight middle fingerComment:Plan: clotrimazole 1 % Apply externally cream(R63.4) Uninte ntional weight lossComment:Plan: CONSULT TO GASTROENTEROLOGY, Nutritional Suppl ements (ENSURE COMPLETE) Oral Liquid(Z12.2) Encounter for screening for lung cancerC omment:Plan: LDCT FOR LUNG CA SCREENPrimary Diagnosis:M54.31 Sciatica, right side Other Diagnoses:I10 Essential hypertension E78.5 Hyperlipidemia, unspecified hyperlipidemia type J45.40 Moderate persistent asthma without complication F25.0 Schizoaffective dis order, bipolar type (HCC) L03.011 Paronychia of right middle fin guido R63.4 Unintentional weight loss Z12.2 E ncounter for screening for lung cancerPrescriptions as of 07/19/2019 Disp Refills Start End * albuterol (2.5 MG/3ML) 0.083% Inha* 100 * 3 07/12/2019 10/10/2019 Class: E Prescribing Route: Nebulizat ion Sig: Take ONE vial (2.5 mg total) via nebulization every 4-6 (four-six) hours as needed for shortness of breath or cough * ALBUTEROL SULFATE (VENTOLIN HFA ) 1* 1 In* 3 07/12/2019 Class: E Prescribing Route: Inhalation Sig: Inhale TWO puffs (216 mcg total) every 4-5 hours Aripiprazole (ABILIFY) 10 MG Or al * 30 t* 1 07/01/2019 Class: E Prescribing Route: Oral Sig: Take ONE tablet (10 mg total) by mouth daily * aspirin 81 MG Oral EC tablet 30 t * 3 07/12/2019 11/09/2019 Class: E Prescribing Route: Oral Sig: Joe e ONE tablet (81 mg total) by mouth daily * Atorvastatin Calcium 10 MG Oral Tab 30 t * 3 07/12/2019 11/09/2019 Class: E Prescribing Route: Oral Sig: Joe e ONE tablet (10 mg total) by mouth nightly * clotrimazole 1 % Apply externally * 45 g 2 07/12/2019 10/10/2019 Class: E Prescribing Sig: Apply to af fected are twice daily FLUCELVAX QUADRIVALENT Intramuscul* 0 06/27/2019 Class: Historical Med Sig: DIRECTED INTRAMUSCULARLY * Flut icasone Propionate HFA (FLOVEN* 1 In* 3 07/12/2019 Class: E Prescribing Route: Inhalation Sig: Inhale ONE puff (110 mcg total) 2 (two) times a day * G abapentin 300 MG Oral Cap 60 c* 5 07/12/2019 Class: E Prescribin g Route: Oral Sig: Take ONE capsule (300 mg total) by mouth 2 (two) times a day Heating Pads (MOIST HEAT PACK) Linton* 10 e* 1 02/05/2019 Class: E Pr escribing Sig: Use daily for pain * lisinopril 20 MG Oral tablet 30 t * 3 07/12/2019 11/09/2019 Class: E Prescribing Route: Oral Sig: Joe e ONE tablet (20 mg total) by mouth daily * Nutritional Supplements (ENSURE CO* 60 B * 5 07/12/2019 Class: E Prescribing Route: Oral Sig: Take 1 Can by mouth 2 (two) times a day Nystatin 798094 UNIT/GM Apply exte* 60 g 2 02/05/2019 Class: E Prescribing Sig: Apply to affected ar ea twice daily PARoxetine HCl 40 MG Oral Tab 30 t* 1 07/01/2019 Class: E Prescribing Route: Oral Sig: Take ONE tablet (40 mg total) by mouth d aily * Respiratory Therapy Supplies (NEBU* 1 kit 0 07/12/2019 Class: E P rescribing Sig: Use with albuterol solution every 4-6 hours as needed Ayala lfamethoxazole-Trimethoprim (TANIA* 20 t* 0 05/30/2019 06/09/2019 Class: E Prescribing Route: Oral Sig: Take ONE tablet by mouth 2 (two) times a day for 10 days for 10 daysFacility-Administered Medications as of 07/19/2019 Sta rt End lidocaine (XYLOCAINE) 1 % injection 05/30/2019 11/24/2019 Class: Administered Route: Subcutaneous Dose: 2.5 mL Frequenc y: OnceAllergies As of Date: 07/12/2019(No Known Allergies)Date Reviewed: 9Reviewed by: Tavia Park - ReviewedLevel of Service:41441 OFFIC/OUTPT VISIT E &M EST LOW-MOD SEVER* Historical Information ----- ------Past Medical and Surgical HistoryM edical And Surgical History Item DateAsthmaGeneralized anxiety disorderHy pertensionFamily History Problem Relation Age of Onset Psychiatry Father Comments: suicide Psych iatry Paternal Grandfather Comments: suicide Psychi atry Brother Comments: suicide attempt Psychiatry Mother Comments: "institutuionalized"Family Status - Rela tion Status Age at Father Paternal Grandfather Bro ther MotherSocial History Marital Status: Single Spouse: Years of Education: # children:Social History Narrative Lives with ex girlfriend 06/28/2018 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 [facility] house: [phone] x [phone]; social media designer neyda Lazardeanlori Patient s cell phone: 02/05/2019 Lives in shared apartment as of nov 2018, previous to at was homeless.Social History Topics Tobacco Use: Yes Cigarettes (P acks/Day): .5 Alcohol Use: Yes 2 oz/week 4 drinks per week Comment : patient reports drinking 4 small "nips" bottles Drug Use: Yes Freq uency: 5 per week Types: Marijuana Sexually Active: NeverImmunizations Administered Influenza, Seasonal, Injectable 07/06/2017 Pneumococcal polysaccharide vaccin* 07/01/2014 Name Value Range Interpretation Code Description Data Tessa rce(s) Supporting Document(s ) ID Date Data Source [id number] 05/30/2019 01:28:15 PM EDT [facility] [place] [facility] Reason for Visit and Comments: Hand P ain [193] - Patient complains of swelling and throbbing of the righthand middle finger Vitals (Last Filed):BP 135/84 (Orthostatic Site : Arm - Right, Orthostatic Po- sition : Sitting, Orthostatic Cuff Size : Adult) Pulse - 62 Temp 97.5 F (36.4 C) (Oral) Resp 19 Ht 5 6" (- 1.676 m) Wt 164 lb (74.4 kg) SpO2 100% BMI 26.47 kg- /m2Vit als History RecordedLuDada art PA 05/30/2019 1:28 PM SignedI have identif ied this patient to be Carson Padilla, -1960.Walk-inChief ComplaintPatient presents with Hand Pain Patient complains of swelling and throbbing of the right h and middle fingerHPIPatient is a 59 year old male with PMHx (see list below) who come s to theclinic for above symptoms x 3 daysRight middle finger distal phalange swelling,Throbbing sensation and warm to touchNever had this beforeOn right dista l phalange 3rd digit + swelling on erythematous ground, Mildtenderness note d. Mild fluctuance noted.edema.After consent was obtained (Signed witnessed f orm to be scanned to encounter) aone minute time out was performed at 1:10 pm where the correct patient,procedure and surgical site was confirmed.Using aseptic techniq ue the skin was prepped and 1cc s of 1% Lidocaine used toanesthetize the incisio n site. A #11 scalpel blade was then used to incise theabcess and aprox 0 ml of purlu ent material evacuated. The cavity was thenirrigated with sterile saline soluti on and lightly packed with sterile gauzestrips. Total blood loss was estim ated as 1ml. The incision was dressed withsterile guaze. The procedure was we ll tolerated.Watch for fever, or increasedswelling or persistent pain. Ca ll or return to clinic prn if such symptomsoccur. Antibiotics were prescri bed. Analgesics were prescribed as per orders.Patient is instructed to return i n 5 days for dressing change.No recent travelNo fever, chills, night sweatsPt r eports long standing jock itchHas been using power with no reliefReview Of [facility] s: negativeEars/Nose/Throat: negativeRespiratory: negativeCardiovas cular: negativeSkin: right middle finger swelling, see abovePatient Active Proble m ListDiagnosis Schizoaffective disorder (HCC) Hypertension Back pain Neck nadia n Asthma Breast mass Opioid dependence on agonist therapy ([facility]) Health care maint enance Tobacco abuseNo Known AllergiesFamily HistoryProblem Relation Age of Onset Ps ychiatry Father suicide Psychiatry Paternal Grandfather suicide Psychi atry Brother suicide attempt Psychiatry Mother "institutuionalized"Social Hi storySocioeconomic History Marital status: Single Spouse name: Not on file Number of children: Not on file Years of education: Not on file Highest educatio n level: Not on fileOccupational History Not on fileSocial Needs Financial resource strain: Not on file Food insecurity: Worry: Not on file Inability: Not on file Tra nsportation needs: Medical: Not on file Non-medical: Not on fileTobacco Use Smo emiliano status: Current Every Day Smoker Packs/day: 0.50 Smokeless tobacco: Raisa pickett UsedSubstance and Sexual Activity Alcohol use: Yes Alcohol/week: 3.3 standard dri nks Types: 4 drink(s) per week Comment: patient reports drinking 4 small "nips" bottles Drug use: Yes Frequency: 5.0 times per week Types: Marijuana Sexual activ ity: Never Partners: Female control/protection: NoneLifestyle Physi arnol activity: Days per week: Not on file Minutes per session: Not on file Stress : Not on fileRelationships Social connections: Talks on phone: Not on carole e Gets together: Not on file Attends taoist service: Not on file Active m ember of club or organization: Not on file Attends meetings of clubs or organizatio ns: Not on file Relationship status: Not on file Intimate partner violence: Fear o f current or ex partner: Not on file Emotionally abused: Not on file Physica lly abused: Not on file Forced sexual activity: Not on fileOther Topics Concer n Not on fileSocial History Narrative Lives with ex girlfriend 06/28/2018 Reports his tory of intranasal drug abuse [facility] house: [phone] x [phone]; social media designer gifty Murphy Patient s cell phone: [phone] 02/05/2019 Lives in shared apartment as o f nov 2018, previous to that was homeless.No past surgical history on file.O:BP 135/8 4 (Orthostatic Site : Arm - Right, Orthostatic Position : Sitting,Orthostat ic Cuff Size : Adult) | Pulse 62 | Temp 97.5 F (36.4 C) (Oral) |Resp 19 | Ht 5 6" (1.676 m) | Wt 164 lb (74.4 kg) | SpO2 100% | BMI 26.47kg/mPhysical E xamination: General appearance - alert, well appearing, and in nodistressSkin - On ri ght pointer finger 1 swelling on erythematous ground, Mildtenderness notededemaFluctua nce?Yes (if yes, see separate procedure note for I&D/Aspiration)ASSESSMENT: Cellu litis without abcessResults for orders placed or performed in visit on 06/25/18HEPATIT IS C ANTIBODY W/ REFLEX RT PCR (REQUIRES 2 VIALS)Result Value Ref Range HEP C AB. S /CO RATIO 0.12 <0.80 HEPATITIS C ANTIBODY Non-Reactive Non-ReactiveHEP B SURFACE A G (HBSAG)Result Value Ref Range HEPATITIS B SURFACE ANTIGEN Non-Reactive Non-Reactiv eHEP B SURFACE AB ([facility]-ORDER QN OPTION)Result Value Ref Range HBSAB Reac tive (A) Non-ReactiveQUANTIFERON GOLD TBResult Value Ref Range COMPONENT QFT-G OLD (SEE A322) NEGATIVE NEGATIVE COMPONENT NIL VALUE (SEE A322) 0.333 COMPONENT TB AG. NIL(SEE A322) -0.089 MITOGEN NIL 0.629A/P(L03.011) Paronychia of right mi ddle finger (primary encounter diagnosis)Comment: discussed and excised with Dr Thornton No puss was evacuated Given jock itch, will apply clotrimazole to af fected sitePlan: Sulfamethoxazole-Trimethoprim (BACTRIM D S) 800-160 MG Oral Tab, lidocaine (XYLOCAINE) 1 % injection, I&D ABSC ESS; SIMPL/SNGL, SURGICAL TRAYS, clotrimazole 1 % Apply externally creamR TC if symptoms persist or worsenThe patient was warned about the serious risks and c omplications of notfollowing up as discussed during the visit and verbalized an under standing ofthe plan.Codi Monreal MA 05/30/2019 1:28 PM SignedCalled the pat ient from the 1st floor waiting area, no answer.Codi Monreal MAI have identified this patient to be Carson Padilla, -1960.Chief ComplaintPatient present s with Hand Pain Patient complains of swelling and throbbing of the right hand middle fingerVitals 05/30/19 1150BP: 135/84Pulse: 62Resp: 19Temp: 97.5 F (36 .4 C)TempSrc: OralSpO2: 100%Weight: 164 lb (74.4 kg)Height: 5 6" (1.676 m)PainSc: 4-Hurts Whole LotPainLoc: FingerNo Known AllergiesMental Health Screenings and As sessmentsPHQ-2: Over the the past two weeks, how often have you been bothered by thef ollowing...?PHQ-2 Total: 0PHQ-9:Over the past two weeks, how often have you been bothe red by thefollowing...? (Nalini las ultimas 2 semanas, con que frecuencia le hanmo lestado los siguientes problemas...?)1. Little interest or pleasure doing things (Tener poco interes o disfrutarpoco de hacer cosas): Not at all2. Feeling down, depre ssed, or hopeless (Sentirse desanimado/a, deprimido/a, osin peggy): Not at all Ivan Sorenson Diagnosis:L03.011 Paronychia of right middle finger Other Diagnoses:L03.011 Cellulitis of right finger (Active) Comment:Billing DiagnosisPrescriptions as of 05/30/2019 Disp Refills Start End ALBUTEROL SULFATE 108 (90 Base) MC* 1 In* 3 02/05/2019 Class: E Prescribing Route: Inhalation Sig: Inhale TWO puffs (216 mcg total) e very 4-6 (four-six) hours as needed Aripiprazole (ABILIFY) 10 MG Oral * 30 t * 1 02/25/2019 Class: E Prescribing Route: Oral Sig: Take ONE tablet (10 mg total) by mouth daily aspirin 81 MG Oral EC tablet 30 t * 3 02/05/2019 06/05/2019 Class: E Prescribing Route: Oral Sig: Joe e ONE tablet (81 mg total) by mouth daily Atorvastatin Calcium 10 MG Oral Tab 30 t * 3 02/05/2019 06/05/2019 Class: E Prescribing Route: Oral Sig: Joe e ONE tablet (10 mg total) by mouth nightly * clotrimazole 1 % Apply externally * 45 g 0 05/30/2019 08/28/2019 Class: E Prescribing Sig: Apply to af fected are twice daily Fluticasone Propionate HFA (FLOVEN* 1 In* 3 02/05/2019 Class: E Prescribing Route: Inhalation Sig: Inhale ONE puf f (110 mcg total) 2 (two) times a day Heating Pads (MOIST HEAT PACK) Linton* 10 e * 1 02/05/2019 Class: E Prescribing Sig: Use daily for pain lisinopril 20 MG Oral tablet 30 t* 3 02/05/2019 06/05/2019 Class : E Prescribing Route: Oral Sig: Take ONE tablet (20 mg total) by mouth daily Nystatin 922255 UNIT/GM Apply exte* 60 g 2 02/05/2019 Class: E Presc ribing Sig: Apply to affected area twice daily PARoxetine HCl 40 MG Oral Tab 30 t* 1 02/25/2019 Class: E Prescribing Route: Oral Sig: Take ONE tablet (40 mg total) by mouth daily * Sulfamethoxazole-Trimethoprim (TANIA* 20 t * 0 05/30/2019 06/09/2019 Class: E Prescribing Route: Oral Sig: Joe e ONE tablet by mouth 2 (two) times a day for 10 days for 10 daysFacility-Administered Medications as of 05/30/2019 Start End lidocaine (XYLOCAINE) 1 % inje ction 05/30/2019 11/24/2019 Class: Administered Route: Subcutan eous Dose: 2.5 mL Frequency: OnceAllergies As of Date: 05/30/2019(No Known Allergies)Date Reviewed: 05/30/2019Reviewed by: Dada Dang PA - ReviewedLevel of Service:89721.0* PROCEDURE BILLING ONLY Historical Information ----- ------Past Medical and Surgical HistoryM edical And Surgical History Item DateAsthmaGeneralized anxiety disorderHy pertensionFamily History Problem Relation Age of Onset Psychiatry Father Comments: suicide Psych iatry Paternal Grandfather Comments: suicide Psychi atry Brother Comments: suicide attempt Psychiatry Mother Comments: "institutuionalized"Family Status - Rela tion Status Age at Father Paternal Grandfather Bro ther MotherSocial History Marital Status: Single Spouse: Years of Education: # children:Social History Narrative Lives with ex girlfriend 06/28/2018 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 [facility]: [phone] x [phone]; social media designer neyda Murphy Patient s cell phone: 02/05/2019 Lives in shared apartment as of nov 2018, previous to at was homeless.Social History Topics Tobacco Use: Yes Cigarettes (P acks/Day): .5 Alcohol Use: Yes 2 oz/week 4 drinks per week Comment : patient reports drinking 4 small "nips" bottles Drug Use: Yes Freq uency: 5 per week Types: Marijuana Sexually Active: NeverImmunizations Administered Influenza, Seasonal, Injectable 07/06/2017 Pneumococcal polysaccharide vaccin* 07/01/2014 Name Value Range Interpretation Code Description Data Tessa rce(s) Supporting Document(s ) Procedure Social History Code Duration Value Status Description Data Source(s ) Alcohol intake 03/11/2020 Current completed Current drinker [facility] 12:00:00 AM drinker of of alcohol For Family EDT alcohol (finding) Health (finding) Tobacco use and 03/11/2020 Never used completed Never used [facility] tute exposure 12:00:00 AM For Family EDT Health Cigarettes 03/11/2020 UNK completed [facility] [place] smoked current 12:00:00 AM For Famil y (pack per day) - EDT Health Reported Smoking 03/11/2020 Current every completed Current every day [facility] [place] 12:00:00 AM day smoker smoker For Family EDT Health Tobacco smoking 03/11/2020 Current every The In stitute status TXIS 12:00:00 AM day smoker For Family EDT Health Cigarettes 03/11/2020 UNK [facility] [place] smoked current 12:00:00 AM For Famil y (pack per day) - EDT Health Reported Tobacco use and 03/11/2020 Never used The Insti tute exposure 12:00:00 AM For Family EDT Health Alcohol intake 02/07/2020 Current [facility] [place] [facility] AM drinker of For Family EDT alcohol Health (finding) Tobacco smoking 02/07/2020 Current every [facility] [place] status TXIS 12:00:00 AM day smoker For Family EDT Health Cigarettes 02/07/2020 UNK [facility] [place] smoked current 12:00:00 AM For Famil y (pack per day) - EDT Health Reported Tobacco use and 02/07/2020 Never used The Insti tute exposure 12:00:00 AM For Family EDT Health Tobacco use and 09/21/2019 Never used The Insti tute exposure 12:00:00 AM For Family EST Health Cigarettes 09/21/2019 UNK [facility] [place] smoked current 12:00:00 AM For Famil y (pack per day) - EST Health Reported Alcohol intake 09/21/2019 Current [facility] [place] 12:00:00 AM drinker of For Family EST alcohol Health (finding) Tobacco smoking 09/21/2019 Current every The In stitute status NHIS 12:00:00 AM day smoker For Family EST Health Alcohol intake 07/19/2019 Current completed Current drinker The [facility]stitute 12:00:00 AM drinker of of alcohol For Family EDT alcohol (finding) Health (finding) Cigarettes 07/19/2019 UNK completed [facility] [place] smoked current 12:00:00 AM For Famil y (pack per day) - EDT Health Reported Tobacco smoking 07/19/2019 Current every completed Current every day [facility] [place] status NHIS 12:00:00 AM day smoker smoker For Family EDT Health Alcohol intake 05/30/2019 Current completed Current drinker The [facility]stitute 12:00:00 AM drinker of of alcohol For Family EDT alcohol (finding) Health (finding) Cigarettes 05/30/2019 UNK completed [facility] [place] smoked current 12:00:00 AM For Famil y (pack per day) - EDT Health Reported Smoking 05/30/2019 Current every completed Current every day [facility] [place] 12:00:00 AM day smoker smoker For Family EDT Health Vital Signs ID Date Data Source UNK Name Value Range Interpretation Code Description Data Source(s) Body weight 71.215 kg 71.215 kg [facility] Body height 170.2 cm 170.2 cm [facility] Body temperature 37.11 Tamie 37.11 Tamie The [facility] Heart rate 72 /min 72 /min [facility] Diastolic blood 91 mm[Hg] 91 mm[Hg] The Insti tute pressure For Family Health Systolic blood 151 mm[Hg] 151 mm[Hg] [facility] [place] pressure For [facility] Diastolic blood 78 mm[Hg] 78 mm[Hg] The Insti tute pressure For Family Health Systolic blood 132 mm[Hg] 132 mm[Hg] [facility] [place] pressure For [facility] Oxygen saturation 100 % 100 % The Ins titute in Arterial blood For Fam tod by Pulse oximetry [facility] Body weight 69.854 kg 69.854 kg [facility] Body height 170.2 cm 170.2 cm [facility] Respiratory rate 18 /min 18 /min The [facility] Body temperature 36.78 Tamie 36.78 Tamie The Inst [facility] Heart rate 62 /min 62 /min [facility] Oxygen saturation 96 % 96 % The Ins titute in Arterial blood For Fam tod by Pulse oximetry Health Body mass index 24.68 kg/m2 24.68 kg/m2 The Ins titute (BMI) [Ratio] For [facility] Body weight 71.487 kg 71.487 kg [facility] [place] Measured For [facility] Body height 170.2 cm 170.2 cm [facility] Body temperature 36.78 Tamie 36.78 Tamie The Inst itute For [facility] Heart rate 54 /min 54 /min [facility] Diastolic blood 67 mm[Hg] 67 mm[Hg] The Insti tute pressure For [facility] Systolic blood 108 mm[Hg] 108 mm[Hg] [facility] [place] pressure For [facility] Body mass index 25.82 kg/m2 25.82 kg/m2 The Ins titute (BMI) [Ratio] For [facility] Body weight 72.576 kg 72.576 kg [facility] [place] Measured For [facility] Body temperature 36.89 Tamie 36.89 Tamie The Inst itute For [facility] Heart rate 76 /min 76 /min [facility] Diastolic blood 76 mm[Hg] 76 mm[Hg] The Insti tute pressure For [facility] Systolic blood 106 mm[Hg] 106 mm[Hg] [facility] [place] pressure For [facility] Oxygen saturation 100 % 100 % The Ins titute in Arterial blood For [facility] tod by Pulse oximetry [facility] Body mass index 26.47 kg/m2 26.47 kg/m2 The Ins titute (BMI) [Ratio] For [facility] Body weight 74.39 kg 74.39 kg [facility] [place] Measured For [facility] Body height 167.6 cm 167.6 cm [facility] Respiratory rate 19 /min 19 /min The Inst [facility]ute For [facility] Body temperature 36.39 Tamie 36.39 Tamie [facility] Heart rate 62 /min 62 /min [facility] Diastolic blood 84 mm[Hg] 84 mm[Hg] The Insti tute pressure For [facility] Systolic blood 135 mm[Hg] 135 mm[Hg] [place] [facility] [place] pressure For [facility] Patient Treatment Plan of Care Planned Activity Planned Date Details Description Data Source (s) Ketoconazole 20 MG/ML 06/29/2020 The [facility] For Topical Cream 12:00:00 AM EDT [facility] ALBUTEROL SULFATE (VENTOLIN 06/29/2020 The [place] [facility] HFA) 108 (90 Base) MCG/ACT 12:00:00 AM EDT [facility] Inhalation Aero Soln Aspirin 81 MG Delayed 06/29/2020 The In stitute For Release Oral Tablet 12:00:00 AM [facility] gabapentin 300 MG Oral 06/29/2020 [facility] Oral 06/29/2020 The [facility]t [facility] mometasone 06/29/2020 The Ins titute For furoate 0.2 MG/ACTUAT Dry 12:00:00 AM [facility] Powder Inhaler Glecaprevir-Pibrentasvir 06/29/2020 The [place] [facility] 100-40 MG Oral Tab 12:00:00 AM [facility] PARoxetine HCl 40 MG Oral 06/01/2020 Th e [place] [facility] Tab 12:00:00 AM EDT [facility] aripiprazole 10 MG Oral 06/01/2020 [facility] [place] [facility] Tablet [facility] MG Oral 06/01/2020 [facility] Capsule [facility]:00[facility] MG Oral 03/10/2020 [facility] Capsule [facility]:00[facility] PARox[facility] 40 MG Oral 03/10/2020 Th [facility] [place] [facility] Tab [facility]:00:[facility] arip[facility] 10 MG Oral 03/10/2020 [facility] [place] [facility] Tablet [facility]:00[facility] NARCAN KIT 02/28/2020 [facility] [place] [facility] or [facility] ALBUTEROL SULFATE (VENTOLIN 02/05/2020 [facility] [place] [facility] HFA) 108 (90 Base) MCG/ACT 12:00:00 AM [facility] Inhalation Aero Soln Aspirin 81 MG Delayed 02/05/2020 The In stitute For Release Oral Tablet 12:00:00 AM [facility] Lisinopril 20 MG Oral 02/05/2020 The In stitute For Tablet 12:00:00 AM [facility] atorvastatin 10 MG Oral 02/05/2020 [facility] [place] [facility] Tablet [facility] mometasone 12/17/2019 The Ins titute For furoate 0.2 MG/ACTUAT Dry 12:00:00 AM EST [facility] Powder Inhaler Nutritional Supplements 07/12/2019 [facility] [place] [facility] (ENSURE COMPLETE) Oral 12:00:00 AM [facility] Liquid Respiratory Therapy 07/12/2019 The Inst itute For Supplies (NEBULIZER 12:00:00 AM [facility] COMPRESSOR) Does not apply Kit Lisinopril 20 MG Oral 07/12/2019 The In stitute For Tablet 12:00:00 AM [facility] atorvastatin 10 MG Oral 07/12/2019 [facility] [place] [facility] Tablet 12:00:00 AM [facility] Aspirin 81 MG Delayed 07/12/2019 The In stitute For Release Oral Tablet 12:00:00 AM [facility] ALBUTEROL SULFATE (VENTOLIN 07/12/2019 [facility] [place] [facility] HFA) 108 (90 Base) MCG/ACT 12:00:00 AM [facility] Inhalation Aero Soln gabapentin 300 MG Oral 07/12/2019 The I nstitute For Capsule 12:00:00 AM [facility] 120 ACTUAT Fluticasone 07/12/2019 The I nstitute For propionate 0.11 MG/ACTUAT 12:00:00 AM [facility] Metered Dose Inhaler Clotrimazole 10 MG/ML 07/12/2019 The In stitute For Topical Cream 12:00:00 AM [facility] Albuterol 0.83 MG/ML 07/12/2019 The Ins titute For Inhalant Solution 12:00:00 AM [facility] PARoxetine HCl 40 MG Oral 07/01/2019 e [place] [facility] Tab 12:00:00 AM [facility] aripiprazole 10 MG Oral 07/01/2019 [facility] [place] [facility] Tablet 12:00:00 AM [facility] FLUCELVAX QUADRIVALENT 06/27/2019 The I nstitute For Intramuscular Suspension 12:00:00 AM [facility] lidocaine (XYLOCAINE) 1 % 05/30/2019 e [place] For injection 01:30:00 PM [facility] Clotrimazole 10 MG/ML 05/30/2019 The In stitute For Topical Cream 12:00:00 AM [facility] Sulfamethoxazole 800 MG / 05/30/2019 Th e [place] [facility] Trimethoprim 160 MG Oral 12:00:00 AM [facility] Tablet PARoxetine HCl 40 MG Oral 02/25/2019 Th [facility] [place] [facility] Tab [facility] 10 MG Oral 02/25/2019 [facility] [place] [facility] Tablet [facility]:00[facility] Nystatin 100 UNT/MG Topical 02/05/2019 [facility] [place] [facility] Powder 12:00:00 AM [facility] ALBUTEROL SULFATE 108 (90 02/05/2019 Th e [place] [facility] Base) MCG/ACT Inhalation 12:00:00 AM [facility] Aero Soln 120 ACTUAT Fluticasone 02/05/2019 The I nstitute For propionate 0.11 MG/ACTUAT 12:00:00 AM [facility] Metered Dose Inhaler Lisinopril 20 MG Oral 02/05/2019 The In stitute For Tablet [facility] Aspirin 81 MG Delayed 02/05/2019 The In stitute For Release Oral Tablet 12:00:00 AM EDT [facility] atorvastatin 10 MG Oral 02/05/2019 [facility] [place] [facility] Tablet 12:00:00 AM EDT [facility]
[2020-07-23] MEDS: chlordiazePOXIDE HCL 25 MG CAPSULE PO SCH ×3 (12:33→23:19)
[2020-07-23] MEDS: LISINOPRIL 20 MG TABLET PO SCH (12:33)
[2020-07-23] MEDS: GABAPENTIN 300 MG CAPSULE PO SCH ×2 (12:33→23:18)
[2020-07-23] MEDS: ASPIRIN 81 MG CHEWABLE TABLETS PO SCH (12:34)
[2020-07-23] MEDS: CLOTRIMAZOLE 1% CREAM 15 GM TUBE TP SCH ×2 (12:34→23:18)
[2020-07-23] MEDS: BACITRACIN 0.9 GM PACKET TP SCH ×2 (12:34→23:17)
[2020-07-23] MEDS: NICOTINE 21 MG/24 HOURS TOPICAL PATCH TD SCH (12:35)
[2020-07-23] MEDS: hydrOXYzine PAMOATE 25 MG CAPSULE (FP) PO SCH ×3 (14:16→23:19)
[2020-07-23 14:33] LABS: HEMATOCRIT 37.5 % (35.4-49); HEMOGLOBIN 12.8 GM/dL (11.7-16.9); MCH 30.2 pg (25.7-33.7); MCHC 34.2 g/dl (32.0-35.9); MEAN CELL VOLUME 88.4 fl (80-96); PLATELET COUNT 240 K/MM3 (134-434); RBC 4.24 M/mm3 (4.00-5.60); RDW 13.5 % (11.9-15.9); WHITE BLOOD COUNT 8.2 K/mm3 (4.0-10.0)
[2020-07-23 14:59] LABS: ALBUMIN 3.4 g/dl (3.4-5.0); BILIRUBIN,TOTAL 0.5 mg/dL (0.2-1); BLOOD UREA NITROGEN 13.4 mg/dL (7-18); CALCIUM 8.7 mg/dL (8.5-10.1); CREATININE 1.1 mg/dL (0.55-1.3); POTASSIUM 3.8 mmol/L (3.5-5.1)
--- NOTE | 2020-07-23 15:45 | PN ---
S Progress Note Note: Psychiatric nurse practitioner note: Operations Planner approached for patient psychiatric consultation. Patient stated, " I'm tired. I'll talk to you tomorrow." Psychiatric consultation deferred.
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
[2020-07-23] MEDS: MELATONIN 5 MG TABLETS PO SCH (23:18)
[2020-07-23] MEDS: THIAMINE HCL 100 MG TABLET (FP) PO SCH (23:19)
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
[2020-07-24] MEDS: chlordiazePOXIDE HCL 25 MG CAPSULE PO SCH ×4 (05:29→22:28)
[2020-07-24] MEDS: hydrOXYzine PAMOATE 25 MG CAPSULE (FP) PO SCH ×5 (05:29→22:28)
--- NOTE | 2020-07-24 10:03 | CONSULT ---
[facility] Psychiatric Consult - Data Date of interview: 07/24/20 Admission source: [facility] Identifying data: Infection Control Practitioner attempted to complete consultation yesterday afternoon and this morning but on both occasions patient stated he was too tired to speak. " Psychiatric consultation refused. Please other another psychiatric consultation if requested by patient.
--- NOTE | 2020-07-24 10:11 | EKG ---
Test Reason : Blood Pressure : / mmHG Vent. Rate : 049 BPM Atrial Rate : 049 BPM P-R Int : 130 ms QRS Dur : 104 ms QT Int : 498 ms P-R-T Axes : 059 027 -19 degrees QTc Int : 449 ms SINUS BRADYCARDIA INCOMPLETE RIGHT BUNDLE BRANCH BLOCK NO PREVIOUS ECGS AVAILABLE Confirmed by LINNETTE KINSEY MD ([id number]) on 07/24/2020 10:10:51 AM Referred By: Confirmed By:LINNETTE KINSEY MD
--- NOTE | 2020-07-24 10:20 | PN ---
[facility] CIWA - CIWA Score Nausea/Vomitin-Mild Nausea/No Vomiting Muscle Tremors: 2 Anxiety: 1-Mildly Anxious Agitation: 1-Slight > Activity Paroxysmal Sweats: No Perspiration Orientation: 0-Oriented Tacttile Disturbances: 0-None Auditory Disturbances: 1-Very Mild Visual Disturbances: 0-None Headache: 0-None Present CIWA-Ar Total Score: 6 [facility] Progress Note (SOAP) Subjective: Pt complains of feeling shaky, noise sensitivity Objective: 07/24/20 10:18 PE Gnl: WDWN, in no distress Mentation: awake, alert, mild anxiety Motor: moves limbs well Coordination: nl Gait: not tested, in bed resting Laboratory Tests 07/23/20 07/23/20 07/23/20 10:00 10:00 10:00 WBC 8.2 RBC 4.24 Hgb 12.8 Hct 37.5 MCV 88.4 MCH 30.2 MCHC 34.2 RDW 13.5 Plt Count 240 MPV 8.0 Sodium 141 Potassium 3.8 Chloride 106 Carbon Dioxide 28 Anion Gap 7 L BUN 13.4 Creatinine 1.1 Est GFR (CKD-EPI)AfAm 84.71 Est GFR (CKD-EPI)NonAf 73.09 Random Glucose 136 H Calcium 8.7 Total Bilirubin 0.5 AST 52 H ALT 64 H Alkaline Phosphatase 66 Total Protein 7.0 Albumin 3.4 Syphilis Serology RPR Titer HIV Ag/Ab Combo Qual Negative 07/23/20 07/23/20 10:00 10:00 WBC RBC Hgb Hct MCV MCH MCHC RDW Plt Count MPV Sodium Potassium Chloride Carbon Dioxide Anion Gap BUN Creatinine Est GFR (CKD-EPI)AfAm Est GFR (CKD-EPI)NonAf Random Glucose Calcium Total Bilirubin AST ALT Alkaline Phosphatase Total Protein Albumin Syphilis Serology Reactive A* RPR Titer Reactive 1:1 H HIV Ag/Ab Combo Qual Assessment: 07/24/20 10:19 1. Alcohol withdrawal 2. Positive RPR Plan: 1. Librium protocol, projected finish on 07/28 2. will check with pt if syphilis treated
[2020-07-24] MEDS: GABAPENTIN 300 MG CAPSULE PO SCH ×2 (10:32→22:28)
[2020-07-24] MEDS: PRENATAL VITAMINS W/ FOLIC ACID TABLET (FP) PO SCH (10:32)
[2020-07-24] MEDS: LISINOPRIL 20 MG TABLET PO SCH (10:33)
[2020-07-24] MEDS: ASPIRIN 81 MG CHEWABLE TABLETS PO SCH (10:33)
[2020-07-24] MEDS: NICOTINE 21 MG/24 HOURS TOPICAL PATCH TD SCH (10:33)
[2020-07-24] MEDS: BACITRACIN 0.9 GM PACKET TP SCH ×2 (10:34→22:29)
[2020-07-24] MEDS: CLOTRIMAZOLE 1% CREAM 15 GM TUBE TP SCH ×2 (10:34→22:29)
[2020-07-24] MEDS: METHADONE HCL 10 MG TABLET PO SCH (11:11)
[2020-07-24] MEDS: THIAMINE HCL 100 MG TABLET (FP) PO SCH (22:28)
[2020-07-24] MEDS: MELATONIN 5 MG TABLETS PO SCH (22:28)
[2020-07-25] MEDS: hydrOXYzine PAMOATE 25 MG CAPSULE (FP) PO SCH ×5 (06:42→22:47)
[2020-07-25] MEDS: chlordiazePOXIDE HCL 25 MG CAPSULE PO SCH ×4 (06:42→22:47)
[2020-07-25] MEDS: METHADONE HCL 10 MG TABLET PO SCH (06:42)
[2020-07-25] MEDS: LISINOPRIL 20 MG TABLET PO SCH (10:09)
[2020-07-25] MEDS: PRENATAL VITAMINS W/ FOLIC ACID TABLET (FP) PO SCH (10:09)
[2020-07-25] MEDS: CLOTRIMAZOLE 1% CREAM 15 GM TUBE TP SCH ×2 (10:10→22:47)
[2020-07-25] MEDS: ASPIRIN 81 MG CHEWABLE TABLETS PO SCH (10:10)
[2020-07-25] MEDS: BACITRACIN 0.9 GM PACKET TP SCH ×2 (10:10→22:46)
[2020-07-25] MEDS: NICOTINE 21 MG/24 HOURS TOPICAL PATCH TD SCH (10:10)
[2020-07-25] MEDS: GABAPENTIN 300 MG CAPSULE PO SCH ×2 (12:07→22:47)
--- NOTE | 2020-07-25 12:12 | PN ---
[facility] CIWA - CIWA Score Nausea/Vomitin-No Nausea/No Vomiting Muscle Tremors: None Anxiety: 2 Agitation: 0-Normal Activity Paroxysmal Sweats: 2 Orientation: 0-Oriented Tacttile Disturbances: 0-None Auditory Disturbances: 0-None Visual Disturbances: 0-None Headache: 2-Mild CIWA-Ar Total Score: 6 BHS Progress Note (SOAP) Subjective: c/o sweats, anxiety, and headache. Objective: 07/25/20 14:43 Vital Signs 07/25/20 07/25/20 09:00 12:24 Temperature 98.4 F 97.8 F Pulse Rate 56 L 65 Respiratory 18 18 Rate Blood Pressure 113/74 105/72 O2 Sat by Pulse 97 Oximetry (%) Assessment: 07/25/20 14:44 AOX3, in no acute respiratory distress. Full ROM, ambulating in the unit. Withdrawal symptoms. Plan: continue detox.
[2020-07-25] MEDS: THIAMINE HCL 100 MG TABLET (FP) PO SCH (22:47)
[2020-07-25] MEDS: MELATONIN 5 MG TABLETS PO SCH (22:48)
[2020-07-26] MEDS ORDERED: chlordiazePOXIDE HCL 10 MG CAPSULE PO PRN
[2020-07-26] MEDS: METHADONE HCL 10 MG TABLET PO SCH (06:05)
[2020-07-26] MEDS: hydrOXYzine PAMOATE 25 MG CAPSULE (FP) PO SCH ×5 (06:06→22:47)
[2020-07-26] MEDS: chlordiazePOXIDE HCL 10 MG CAPSULE PO SCH ×4 (06:06→22:47)
[2020-07-26] MEDS: LISINOPRIL 20 MG TABLET PO SCH (10:17)
[2020-07-26] MEDS: GABAPENTIN 300 MG CAPSULE PO SCH ×2 (10:17→22:47)
[2020-07-26] MEDS: NICOTINE 21 MG/24 HOURS TOPICAL PATCH TD SCH (10:17)
[2020-07-26] MEDS: ASPIRIN 81 MG CHEWABLE TABLETS PO SCH (10:17)
[2020-07-26] MEDS: CLOTRIMAZOLE 1% CREAM 15 GM TUBE TP SCH ×2 (10:18→22:46)
[2020-07-26] MEDS: PRENATAL VITAMINS W/ FOLIC ACID TABLET (FP) PO SCH (10:18)
[2020-07-26] MEDS: BACITRACIN 0.9 GM PACKET TP SCH ×2 (10:21→22:46)
--- NOTE | 2020-07-26 14:47 | PN ---
S CIWA - CIWA Score Nausea/Vomitin-Mild Nausea/No Vomiting Muscle Tremors: 1-None Visible, but [place] Anxiety: 1-Mildly Anxious Agitation: 0-Normal Activity Paroxysmal Sweats: No Perspiration Orientation: 0-Oriented Tacttile Disturbances: 0-None Auditory Disturbances: 0-None Visual Disturbances: 0-None Headache: 0-None Present CIWA-Ar Total Score: 3 BHS Progress Note (SOAP) Subjective: 60 years old male was admitted on 07/23/20 for alcohol withdrawal sx management treating with librium detox regiment mr avendano received methadone 30 mg po today feels ok ate breakfast and lunch in room tolerate food well Objective: 07/26/20 14:50 Vital Signs - 24 hr 07/25/20 07/25/20 07/26/20 16:29 20:32 07:11 Temperature 97.1 F L 98.9 F 97.3 F L Pulse Rate 62 65 56 L Respiratory 18 18 18 Rate Blood Pressure 100/65 99/54 L 101/62 O2 Sat by Pulse 95 96 Oximetry (%) 07/26/20 07/26/20 08:37 12:20 Temperature 97.5 F L 98.2 F Pulse Rate 57 L 72 Respiratory 18 18 Rate Blood Pressure 132/84 121/79 O2 Sat by Pulse 100 Oximetry (%) Laboratory Tests 07/23/20 07/23/20 07/23/20 10:00 10:00 10:00 WBC 8.2 RBC 4.24 Hgb 12.8 Hct 37.5 MCV 88.4 MCH 30.2 MCHC 34.2 RDW 13.5 Plt Count 240 MPV 8.0 Sodium 141 Potassium 3.8 Chloride 106 Carbon Dioxide 28 Anion Gap 7 L BUN 13.4 Creatinine 1.1 Est GFR (CKD-EPI)AfAm 84.71 Est GFR (CKD-EPI)NonAf 73.09 Random Glucose 136 H Calcium 8.7 Total Bilirubin 0.5 AST 52 H ALT 64 H Alkaline Phosphatase 66 Total Protein 7.0 Albumin 3.4 Syphilis Serology RPR Titer COVID-19 ([facility]) HIV Ag/Ab Combo Qual Negative 07/23/20 07/23/20 07/23/20 10:00 10:00 10:15 WBC RBC Hgb Hct MCV MCH MCHC RDW Plt Count MPV Sodium Potassium Chloride Carbon Dioxide Anion Gap BUN Creatinine Est GFR (CKD-EPI)AfAm Est GFR (CKD-EPI)NonAf Random Glucose Calcium Total Bilirubin AST ALT Alkaline Phosphatase Total Protein Albumin Syphilis Serology Reactive A* RPR Titer Reactive 1:1 H COVID-19 ([facility]) Not detected HIV Ag/Ab Combo Qual syphilis contacted treated 07/26/20 14:53 Assessment: 07/26/20 14:54 alcohol withdrawal Plan: librium regiment
[2020-07-26] MEDS: THIAMINE HCL 100 MG TABLET (FP) PO SCH (22:47)
[2020-07-26] MEDS: MELATONIN 5 MG TABLETS PO SCH (22:47)
[2020-07-27] MEDS: chlordiazePOXIDE HCL 10 MG CAPSULE PO SCH ×2 (06:09→18:10)
[2020-07-27] MEDS: hydrOXYzine PAMOATE 25 MG CAPSULE (FP) PO SCH ×5 (06:09→22:29)
[2020-07-27] MEDS: METHADONE HCL 10 MG TABLET PO SCH (06:09)
[2020-07-27] MEDS: PRENATAL VITAMINS W/ FOLIC ACID TABLET (FP) PO SCH (10:19)
[2020-07-27] MEDS: GABAPENTIN 300 MG CAPSULE PO SCH ×2 (10:19→22:29)
[2020-07-27] MEDS: ASPIRIN 81 MG CHEWABLE TABLETS PO SCH (10:19)
[2020-07-27] MEDS: LISINOPRIL 20 MG TABLET PO SCH (10:20)
[2020-07-27] MEDS: NICOTINE 21 MG/24 HOURS TOPICAL PATCH TD SCH (10:20)
[2020-07-27] MEDS: BACITRACIN 0.9 GM PACKET TP SCH ×2 (10:21→22:28)
[2020-07-27] MEDS: CLOTRIMAZOLE 1% CREAM 15 GM TUBE TP SCH ×2 (10:21→22:29)
--- NOTE | 2020-07-27 12:27 | PN ---
S CIWA - CIWA Score Nausea/Vomitin-No Nausea/No Vomiting Muscle Tremors: 1-None Visible, but [place] Anxiety: 1-Mildly Anxious Agitation: 0-Normal Activity Paroxysmal Sweats: No Perspiration Orientation: 0-Oriented Tacttile Disturbances: 0-None Auditory Disturbances: 0-None Visual Disturbances: 0-None Headache: 0-None Present CIWA-Ar Total Score: 2 B[facility] Progress Note (SOAP) Subjective: 60 years old male was admitted on 07/23/20 for alcohol withdrawal sx management treating with librium detox regiment feels better less tremor mild anxiety discussing aftercare with staff mr avendano prefers to go to [facility] as well as accept to [facility] as alternative Objective: 07/27/20 12:28 Vital Signs - 24 hr 07/26/20 07/26/20 07/27/20 16:34 20:57 06:59 Temperature 97.3 F L 98.6 F 97.3 F L Pulse Rate 66 69 62 Respiratory 18 17 18 Rate Blood Pressure 108/64 110/62 104/73 O2 Sat by Pulse 97 99 Oximetry (%) 07/27/20 09:08 Temperature 97.3 F L Pulse Rate 18 L Respiratory 64 H Rate Blood Pressure 128/73 O2 Sat by Pulse 99 Oximetry (%) Laboratory Tests 07/23/20 07/23/20 07/23/20 10:00 10:00 10:00 WBC 8.2 RBC 4.24 Hgb 12.8 Hct 37.5 MCV 88.4 MCH 30.2 MCHC 34.2 RDW 13.5 Plt Count 240 MPV 8.0 Sodium 141 Potassium 3.8 Chloride 106 Carbon Dioxide 28 Anion Gap 7 L BUN 13.4 Creatinine 1.1 Est GFR (CKD-EPI)AfAm 84.71 Est GFR (CKD-EPI)NonAf 73.09 Random Glucose 136 H Calcium 8.7 Total Bilirubin 0.5 AST 52 H ALT 64 H Alkaline Phosphatase 66 Total Protein 7.0 Albumin 3.4 Syphilis Serology RPR Titer COVID-19 ([facility]) HIV Ag/Ab Combo Qual Negative 07/23/20 07/23/20 07/23/20 10:00 10:00 10:15 WBC RBC Hgb Hct MCV MCH MCHC RDW Plt Count MPV Sodium Potassium Chloride Carbon Dioxide Anion Gap BUN Creatinine Est GFR (CKD-EPI)AfAm Est GFR (CKD-EPI)NonAf Random Glucose Calcium Total Bilirubin AST ALT Alkaline Phosphatase Total Protein Albumin Syphilis Serology Reactive A* RPR Titer Reactive 1:1 H COVID-19 ([facility]) Not detected HIV Ag/Ab Combo Qual syphilis contacted treated Assessment: 07/27/20 12:29 alcohol withdrawal Plan: librium regiment
[2020-07-27] MEDS: THIAMINE HCL 100 MG TABLET (FP) PO SCH (22:28)
[2020-07-27] MEDS: MELATONIN 5 MG TABLETS PO SCH (22:29)
[2020-07-28] MEDS ORDERED: chlordiazePOXIDE HCL 10 MG CAPSULE PO ONE (05:00)
[2020-07-28] MEDS: hydrOXYzine PAMOATE 25 MG CAPSULE (FP) PO SCH ×2 (05:19→10:29)
[2020-07-28] MEDS: METHADONE HCL 10 MG TABLET PO SCH (05:20)
[2020-07-28 09:00] VITALS: BP 107/76; PULSE 61; TEMP 96.1
[2020-07-28] MEDS: ASPIRIN 81 MG CHEWABLE TABLETS PO SCH (10:29)
[2020-07-28] MEDS: GABAPENTIN 300 MG CAPSULE PO SCH (10:29)
[2020-07-28] MEDS: BACITRACIN 0.9 GM PACKET TP SCH (10:29)
[2020-07-28] MEDS: CLOTRIMAZOLE 1% CREAM 15 GM TUBE TP SCH (10:29)
[2020-07-28] MEDS: PRENATAL VITAMINS W/ FOLIC ACID TABLET (FP) PO SCH (10:29)
[2020-07-28] MEDS: NICOTINE 21 MG/24 HOURS TOPICAL PATCH TD SCH (10:29)
[2020-07-28] MEDS: LISINOPRIL 20 MG TABLET PO SCH (10:29)
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
== END 2020-07-28 13:48 | disposition other institution (70) | DRG 773 ==
LOC: YASAS 08:48 → Y3N 11:19
PROVIDERS: ADMIT Allergy & Immunology; ATTEND Allergy & Immunology
PROC: HZ2ZZZZ Detoxification Services for Substance Abuse Treatment (ICD-10-PCS; principal; 2020-07-23)
DX: F10.230 Alcohol dependence with withdrawal, uncomplicated (principal); F11.20 Opioid dependence, uncomplicated; F14.20 Cocaine dependence, uncomplicated; F17.213 Nicotine dependence, cigarettes, with withdrawal; F19.24 Other psychoactive substance dependence with psychoactive substance-induced mood disorder; I10 Essential (primary) hypertension; B18.2 Chronic viral hepatitis C; M54.31 Sciatica, right side; A53.0 Latent syphilis, unspecified as early or late; S09.8XXA Other specified injuries of head, initial encounter; S01.511A Laceration without foreign body of lip, initial encounter; Y04.2XXA Assault by strike against or bumped into by another person, initial encounter; Y93.89 Activity, other specified; Y92.238 Other place in hospital as the place of occurrence of the external cause; Y99.8 Other external cause status
CPT/HCPCS: 36415; 80053; 85027; 86593; 86780; 87389; 93005; 93010; C9803; U0003

== ENCOUNTER 2020-07-23 19:40 | Emergency (ER) | payer OTHER ==
[2020-07-23 19:52] VITALS: BP 105/71; PULSE 60; TEMP 98.7; BMI 23.6
--- OUTSIDE RECORDS SUMMARY | 2020-07-23 19:57 | XMS ---
:1960 Author Organization [facility] Care Team Providers Name Role Phone Bryn [...] is protected by Article 27-F of the [place] State Public Health law. If you continue you may haveaccess to information: Regarding HIV / AIDS; Provided by facilities licensed or operated by the [facility] Office of Mental Health; or Provided by the [facility] Office for People With Developmental Disabilities. If such information is present, then the following [facility] mandated warning applies: This information has been [...] law may result in a fine or snf sentence or both. A general authorization for the release of medical or other information is NOT sufficient authorization for further disclosure. Allergies and Adverse Reactions Type Description Substance Reaction Status Data Source(s ) SYSTEMIC NO KNOWN ALLERGIES NO KNOWN ALLERGIES The [facility] SYSTEMIC ALLERGIES NOT ON FILE ALLERGIES NOT ON The [facility] Encounters Encounter Providers Location Date Indications Data Source(s ) Outpatient Attender: Rob 06/30/2020 [facility] 09:51:46 AM EDT Patient admitted. Outpatient Attender: Vicky 06/26/2020 11:16:35 AM The [facility] Patient admitted. Outpatient Attender: JACQUE ANDREWS 06/01/2020 02:02:36 PM The [facility] Patient admitted. Outpatient Attender: Rob 06/01/2020 01:17:53 PM The [facility] Patient admitted. Outpatient Attender: JACQUE ANDREWS 06/01/2020 11:56:13 AM The [facility] Patient admitted. Outpatient Attender: JACQUE ANDREWS 04/28/2020 03:50:15 PM The [facility] Patient admitted. Outpatient Attender: Vicky 04/22/2020 03:55:12 PM The [facility] Patient admitted. Outpatient Attender: JACQUE ANDREWS 03/11/2020 02:08:46 PM The [facility] - 03/12/2020 01:05:33 [facility] EDT Patient admitted. Outpatient Attender: Alayna Anne 03/10/2020 04:59:07 PM The [facility] Patient admitted. Outpatient Attender: Rob 03/10/2020 09:06:01 AM [facility]. Outpatient Attender: Vicky 02/27/2020 11:28:52 AM The [facility] - 02/28/2020 [facility] 11:57:00 AM EDT Patient admitted. Outpatient Attender: JACQUE ANDREWS 02/26/2020 05:01:36 PM The [facility] Patient admitted. Outpatient Attender: JACQUE ANDREWS 02/19/2020 12:00:00 AM The [facility] - 02/19/2020 05:40:[address] [facility] PM EDT Patient admitted. Outpatient Attender: Sowmya 02/12/2020 09:03:35 AM The [facility] Patient admitted. Outpatient Attender: JACQUE ANDREWS 02/12/2020 12:00:00 AM The [facility] - 02/12/2020 11:10:[address] [facility] AM EDT Patient admitted. Outpatient Attender: Vicky 02/07/2020 08:24:02 AM The [facility] ED - 02/07/2020 [facility] 12:08:31 PM EDT Patient admitted. Outpatient Attender: Vicky 02/05/2020 08:44:37 AM The [facility] - 02/05/2020 [facility] 04:16:41 PM EDT Patient admitted. Outpatient Attender: JACQUE ANDREWS 02/05/2020 12:00:00 AM The [facility] - 02/05/2020 11:11:[address] [facility] AM EDT Patient admitted. Outpatient Attender: Vicky 02/04/2020 01:31:46 PM The [facility] Patient admitted. Outpatient Attender: Pranav Kapoor 01/28/2020 08:24:29 AM EDT The [facility] - 01/28/2020 10:09:32 AM Health EDT Patient admitted. Outpatient Attender: JACQUE ANDREWS 01/28/2020 12:00:00 AM The [facility] - 01/28/2020 12:10:[address] [facility] PM EDT Patient admitted. Outpatient Attender: Karen 01/27/2020 03:16:[address] [facility] Patient admitted. Outpatient Attender: Dada Dang 01/16/2020 08:24:13 AM The [facility] - 01/16/2020 [facility] 07:15:16 PM EDT Patient admitted. Outpatient Attender: Sowmya 12/17/2019 09:48:15 AM The [facility] Patient admitted. Outpatient Attender: Sowmya 11/20/2019 04:25:56 PM The [facility] Patient admitted. Outpatient Attender: JULIETTE 09/26/2019 01:22:45 PM The [facility] Patient admitted. Outpatient Attender: Sowmya 09/21/2019 09:54:17 AM The [facility] Patient admitted. Outpatient Attender: Tomasa Del Castillo 09/05/2019 01:26:37 PM The [facility] Patient admitted. Outpatient Attender: Tomasa Del Castillo 08/29/2019 05:15:18 PM The [facility] Patient admitted. Outpatient Attender: Tomasa Del Castillo 08/07/2019 12:35:29 PM The [facility] - 08/07/2019 [facility] 01:30:45 PM EDT Patient admitted. Outpatient Attender: Bryn 07/23/2019 03:38:[address] [facility] Patient admitted. Outpatient Attender: Bryn 07/12/2019 03:55:16 PM The [facility] - 07/19/2019 [facility] 01:13:04 PM EDT Patient admitted. Outpatient Attender: Tomasa Del Castillo 07/01/2019 01:15:41 PM The [facility] - 07/01/2019 [facility] 01:28:43 AM EDT Patient admitted. Outpatient Attender: Dada Dang 05/30/2019 11:36:41 AM The [facility] - 05/30/2019 [facility] 01:28:15 PM EDT Patient admitted. Immunizations Vaccine Date Status Description Data Source(s) Influenza, 06/27/2019 completed Influenza, 06/27/2019 The [facility] 12:00:00 AM EDT [facility] For Family Beltrami Canine Carla Canine Heal th Kidney, Kidney, Quadrivalent Quadrivalent Medications Medication Brand Start Product Dose Route Administrative Pharmacy [facility] Indications Reaction Description Data Name Date Form Instructions Instructions Source(s) Glecaprevir Oral active Hep C w/o Ta ke 3 The -Pibrentasv 2019 {tbl} coma, tablets by [place] ir 100-40 12:00: chronic mouth amarilys y For Family MG Oral Tab 00 AM (HCC) Health EDT Hep C w/o coma, chronic (HCC) Aspirin aspirin 06/29/2020 81 Oral active Essential T gamaliel The 81 MG 81 MG 12:00:00 AM mg hypertension ONE [place] Delayed Oral EC EDT tablet For Fam tod Release tablet (81 mg Health Oral total) Tablet by aspirin mouth 81 MG daily Oral EC tablet Essential hypertension ALBUTEROL 0830-3440-22 06/29/2020 216 Inhalation active Mod erate Inhale The SULFATE 12:00:00 AM ug persistent TWO [place] (VENTOLIN EDT asthma puffs For Fam tod HFA) 108 without (216 Health (90 Base) complication mcg MCG/ACT total) Inhalation every Aero Soln 4-5 hours Moderate persistent asthma without compl ication Ketoconazole Ketoconazole 2 06/29/2020 active [place] a Apply The 20 MG/ML % Apply 12:00:00 AM cristine ibarra e [place] Topical Cream externally EDT daily as For Family Ketoconazole 2 Cream needed to Health % Apply affected externally area Cream Tinea cruris gabapentin Gabapentin 06/29/2020 300 Oral active Schizoaffe ctive Take ONE The 300 MG Oral 300 MG Oral 12:00:00 AM mg disorder, capsule [facility] Capsule Cap EDT bipolar type (300 mg F or Family Gabapentin (HCC) total) Health 300 MG Oral by mouth Cap 2 (two) times a day Schizoaffective disorder, bipolar type ( HCC) Lisinopril lisinopril 06/29/2020 20 Oral active Essential Take The 20 MG Oral 20 MG Oral 12:00:00 AM mg hypertensio n ONE [place] Tablet tablet EDT tablet For Famil y lisinopril (20 mg Health 20 MG Oral total) tablet by mouth daily Essential hypertension 60 ACTUAT Mometasone 06/29/2020 220 Inhalation active Mild asthma, Inhale The mometasone Furoate 220 12:00:00 AM ug unspecifie d ONE puff [place] furoate 0.2 MCG/INH EDT whether (220 mc [...] MG Oral 12:00:00 AM mg disorder, ONE [place] Tablet Tab EDT bipolar type tablet For Family Aripiprazole (HCC) (10 mg Heal th 10 MG Oral total) Tab by mouth daily Schizoaffective disorder, bipolar type ( HCC) PARoxetine [address]-2 06/01/2020 40 Oral active Schizoaf fective Take The HCl 40 MG 12:00:00 AM mg disorder, ONE [place] Oral Tab EDT bipolar type tablet F or Family (HCC) (40 mg Health total) by mouth daily Schizoaffective disorder, bipolar type ( HCC) gabapentin Gabapentin 06/01/2020 300 Oral aborted Schizoaff ective Take ONE The 300 MG Oral 300 MG Oral 12:00:00 AM mg disorder, capsule [place] Capsule Cap EDT bipolar type (300 mg F or Family Gabapentin (HCC) total) Health 300 MG Oral by mouth Cap 2 (two) times a day Schizoaffective disorder, bipolar type ( HCC) gabapentin Gabapentin 03/10/2020 300 Oral aborted Schizoaff ective Take ONE The 300 MG Oral 300 MG Oral 12:00:00 AM mg disorder, capsule [place] Capsule Cap EDT bipolar type (300 mg F or Family Gabapentin (HCC) total) Health 300 MG Oral by mouth Cap 2 (two) times a day Schizoaffective disorder, bipolar type ( HCC) Take ONE capsule (300 mg total) by mouth 2 (two) times a day PARoxetine [address]-8 03/10/2020 40 Oral aborted Schizoa ffective Take The HCl 40 MG 12:00:00 AM mg disorder, ONE [place] Oral Tab EDT bipolar type tablet F or Family (HCC) (40 mg Health total) by mouth daily Schizoaffective disorder, bipolar type ( HCC) Take ONE tablet (40 mg total) by mouth d aily aripiprazole Aripiprazole 03/10/2020 10 Oral aborted Schiz oaffective Take The 10 MG Oral 10 MG Oral 12:00:00 AM mg disorder, ONE [place] Tablet Tab EDT bipolar type tablet For [...] MG 12:00:00 AM mg unspecif ied tablet [place] Tablet Oral Tab EDT hyperlipidemia (10 mg For Family Atorvastatin type total) Healt h Calcium 10 MG by mouth Oral Tab nightly Hyperlipidemia, unspecified hyperlipidem ia type Take ONE tablet (10 mg total) by mouth n ightly Lisinopril lisinopril 02/05/2020 20 Oral aborted Essential Take The 20 MG Oral 20 MG Oral 12:00:00 AM mg hypertensio n ONE [place] Tablet tablet EDT tablet For Famil y lisinopril (20 mg Health 20 MG Oral total) tablet by mouth daily Essential hypertension Take ONE tablet (20 mg total) by mouth d aily Aspirin aspirin 02/05/2020 81 Oral aborted Essential Take The 81 MG 81 MG 12:00:00 AM mg hypertension ONE [place] Delayed Oral EC EDT tablet For Fam tod Release tablet (81 mg Health Oral total) Tablet by aspirin mouth 81 MG daily Oral EC tablet Essential hypertension Take ONE tablet (81 mg total) by mouth d aily ALBUTEROL [id number] 02/05/2020 216 Inhalation aborted Mo derate Inhale The SULFATE 12:00:00 AM ug persistent TWO [place] (VENTOLIN EDT asthma puffs For Fam tod HFA) 108 without (216 Health (90 Base) complication mcg MCG/ACT total) Inhalation every Aero Soln 4-5 hours Moderate persistent asthma without compl ication Inhale TWO puffs (216 mcg total) every 4 -5 hours PARoxetine [address]-8 01/16/2020 40 Oral completed Schiz oaffective Take The HCl 40 MG 12:00:00 AM mg disorder, ONE [place] Oral Tab EDT bipolar type tablet F or Family (HCC) (40 mg Health total) by mouth daily Schizoaffective disorder, bipolar type ( HCC) Take ONE tablet (40 mg total) by mouth d aily gabapentin Gabapentin 12/17/2019 300 Oral completed S chizoaffective Take ONE The 300 MG Oral 300 MG Oral 12:00:00 AM mg disorder, capsule [place] Capsule Cap EST bipolar type (300 mg [...] 12:00:00 AM ug unspecifie d ONE puff [place] furoate 0.2 MCG/INH EST whether (220 mc [...] 12:00:00 AM ug unspecifie d ONE puff [place] furoate 0.2 MCG/INH EST whether (220 mc [...] 12:00:00 AM mg persistent ( 2.5 mg [place] Inhalant MG/3ML) EDT asthma total) via For [...] for shortness of breath or cough Respiratory [id number] 07/12/2019 active Moderate Use with The Therapy 12:00:00 AM persistent albu terol [facility] Supplies EDT asthma solution For F amily (NEBULIZER without every 4-6 H ealth COMPRESSOR) complication hours as Does not needed apply Kit Moderate persistent asthma without compl ication Use with albuterol solution every 4-6 ho urs as needed Nutritional [id number] 07/12/2019 1 Oral active Unintent ional Take 1 The Supplements 12:00:00 AM {can} weight loss Can by [place] (ENSURE EDT mouth For Family COMPLETE) 2 Health Oral Liquid (two) times a day Unintentional weight loss Take 1 Can by mouth 2 (two) times a day atorvastatin Atorvastatin 07/12/2019 10 Oral complet ed Hyperlipidemia, Take ONE The 10 MG Oral Calcium 10 MG 12:00:00 AM mg unspecif ied tablet [place] Tablet Oral Tab EDT hyperlipidemia (10 mg For Family Atorvastatin type total) Healt h Calcium 10 MG by mouth Oral Tab nightly Hyperlipidemia, unspecified hyperlipidem ia type Take ONE tablet (10 mg total) by mouth n ightly 120 ACTUAT Fluticasone 07/12/2019 110 Inhalation completed Moderate Inhale The Fluticasone Propionate 12:00:00 AM ug persistent ONE [place] propionate HFA (FLOVENT EDT asthma puff For Family 0.11 HFA) 110 without (110 Health MG/ACTUAT MCG/ACT complication mcg Metered Dose Inhalation total) Inhaler Aerosol 2 (two) Fluticasone times a Propionate day HFA (FLOVENT HFA) 110 MCG/ACT Inhalation Aerosol Moderate persistent asthma without compl ication Inhale ONE puff (110 mcg total) 2 (two) times a day ALBUTEROL [id number] 07/12/2019 216 Inhalation completed Moderat e Inhale The SULFATE 12:00:00 AM ug persistent TWO [place] (VENTOLIN EDT asthma puffs For Fam tod HFA) 108 without (216 Health (90 Base) complication mcg MCG/ACT total) Inhalation every Aero Soln 4-5 hours Moderate persistent asthma without compl ication Inhale TWO puffs (216 mcg total) every 4 -5 hours Aspirin aspirin 07/12/2019 81 Oral completed Essential Take The 81 MG 81 MG 12:00:00 AM mg hypertension ONE [place] Delayed Oral EC EDT tablet For Fam tod Release tablet (81 mg Health Oral total) Tablet by aspirin mouth 81 MG daily Oral EC tablet Essential hypertension Take ONE tablet (81 mg total) by mouth d aily Clotrimazole clotrimazole 1 07/12/2019 completed P aronychia Apply to The 10 MG/ML % Apply 12:00:00 AM of right af fected [place] Topical Cream externally EDT middle are twice For Family clotrimazole 1 cream finger daily H ealth % Apply externally cream Paronychia of right middle finger Apply to affected are twice daily Lisinopril lisinopril 07/12/2019 20 Oral completed Essenti al Take The 20 MG Oral 20 MG Oral 12:00:00 AM mg hypertensio n ONE [place] Tablet tablet EDT tablet For Famil y lisinopril (20 mg Health 20 MG Oral total) tablet by mouth daily Essential hypertension Take ONE tablet (20 mg total) by mouth d aily gabapentin Gabapentin 07/12/2019 300 Oral completed S chizoaffective Take ONE The 300 MG Oral 300 MG Oral 12:00:00 AM mg disorder, capsule [place] Capsule Cap EDT bipolar type (300 mg F or Family Gabapentin (HCC) total) Health 300 MG Oral by mouth Cap 2 (two) times a day Schizoaffective disorder, bipolar type ( HCC) Take ONE capsule (300 mg total) by mouth 2 (two) times a day PARoxetine [address]-0 07/01/2019 40 Oral completed Schiz oaffective Take The HCl 40 MG 12:00:00 AM mg disorder, ONE [place] Oral Tab EDT bipolar type tablet F or Family (HCC) (40 mg Health total) by mouth daily Schizoaffective disorder, bipolar type ( HCC) Take ONE tablet (40 mg total) by mouth d aily aripiprazole Aripiprazole 07/01/2019 10 Oral aborted Schiz oaffective Take The 10 MG Oral (ABILIFY) 10 12:00:00 AM mg disorder, ONE [place] Tablet MG Oral Tab EDT bipolar type tab let For Family Aripiprazole (HCC) (10 mg Heal th (ABILIFY) 10 total) MG Oral Tab by mouth daily Schizoaffective disorder, bipolar type ( HCC) FLUCELVAX [id number] 06/27/2019 active DIRECTED The QUADRIVALENT 12:00:00 AM INTRA MUSCULARLY [place] Intramuscular EDT For Fa [facility] Health DIRECTED INTRAMUSCULARLY lidocaine [id number] 05/30/2019 25 Subcutaneous complete d Paronychia The (XYLOCAINE) 01:30:00 PM mg of right [place] 1 % EDT middle For Family injection finger Health Paronychia of right middle finger Clotrimazole clotrimazole 1 05/30/2019 aborted Par onychia Apply to The 10 MG/ML % Apply 12:00:00 AM of right af fected [place] Topical Cream externally EDT middle are twice For Family clotrimazole 1 cream finger daily H ealth % Apply externally cream Paronychia of right middle finger Sulfamethoxazole 800 MG / Sulfamethoxazole-Trimethoprim 05/30/2019 1 Oral active [place] Take The Trimethoprim 160 MG Oral (BACTRIM DS) 800-160 MG Oral 12:00:00 AM {tbl} of right ONE [place] Tablet Tab EDT middle tablet For Famil y Sulfamethoxazole-Trimethoprim finge r by Health (BACTRIM DS) 800-160 MG Oral mouth 2 Tab (two) times a day for 10 days for 10 days Paronychia of right middle finger aripiprazole Aripiprazole 02/25/2019 10 Oral aborted Schiz oaffective Take The 10 MG Oral (ABILIFY) 10 12:00:00 AM mg disorder, ONE [place] Tablet MG Oral Tab EDT bipolar type tab let For Family Aripiprazole (HCC) (10 mg Heal th (ABILIFY) 10 total) MG Oral Tab by mouth daily Schizoaffective disorder, bipolar type ( HCC) PARoxetine [address]-5 02/25/2019 40 Oral aborted Schizoa ffective Take The HCl 40 MG 12:00:00 AM mg disorder, ONE [place] Oral Tab EDT bipolar type tablet F or Family (HCC) (40 mg Health total) by mouth daily Schizoaffective disorder, bipolar type ( HCC) ALBUTEROL [id number] 02/05/2019 216 Inhalation aborted Moderate Inhale TWO The SULFATE 108 12:00:00 AM ug persistent puffs (216 [place] (90 Base) EDT asthma mcg total) Fo r Family MCG/ACT without every 4-6 Heal th Inhalation complication (four- six) Aero Soln hours as needed Moderate persistent asthma without compl ication 120 ACTUAT Fluticasone 02/05/2019 110 Inhalation aborted Mo derate Inhale The Fluticasone Propionate 12:00:00 AM ug persistent ONE [place] propionate HFA (FLOVENT EDT asthma puff For [...] MG 12:00:00 AM mg unspecif ied tablet [place] Tablet Oral Tab EDT hyperlipidemia (10 mg For Family Atorvastatin type total) Healt h Calcium 10 MG by mouth Oral Tab nightly Hyperlipidemia, unspecified hyperlipidem ia type Nystatin 100 Nystatin 02/05/2019 completed Tinea p laura, Apply to The UNT/MG [id number] 12:00:00 AM unspecified af fected [place] Topical UNIT/GM EDT laterality area For Family Powder Apply twice Health Nystatin externally daily [id number] Powder UNIT/GM Apply externally Powder Tinea pedis, unspecified laterality Apply to affected area twice daily Lisinopril lisinopril 02/05/2019 20 Oral aborted Essential Take The 20 MG Oral 20 MG Oral 12:00:00 AM mg hypertensio n ONE [place] Tablet tablet EDT tablet For Famil y lisinopril (20 mg Health 20 MG Oral total) tablet by mouth daily Essential hypertension Aspirin aspirin 02/05/2019 81 Oral aborted Essential Take The 81 MG 81 MG 12:00:00 AM mg hypertension ONE [place] Delayed Oral EC EDT tablet For Fam tod Release tablet (81 mg Health Oral total) Tablet by aspirin mouth 81 MG daily Oral EC tablet Essential hypertension Insurance Providers Payer name Policy type Policy ID Covered Covered constitution party's Policy P marisa / Coverage constitution party ID relationship to [employer] Inf ormation type goldman [facility] FIRST [id number] SP [id number] H [place]ID [place] [id number] Self [id number] [place]ICAID [place] [id number] Self [id number] [employer] [id number] Self [id number] [employer] [id number] Self [id number] [employer] HARP [id number] [place]ICAID [place] Medicaid 125 125 MEDICAID [place] Medicaid 125 125 [employer] HARP [id number] Problems, Conditions, and Diagnoses Code Display Name Description Problem Type Effective Data Dates Source(s) F11.21 Opioid use Opioid use [id number] 02/05/2020 The [place] disorder, moderate, disorder, moderate, 12:00:0 0 AM For Family in early remission, in early remission, EDT Health on maintenance on maintenance therapy therapy B18.2 Hep C w/o coma, Hep C w/o coma, [id number] 02/05/2020 The [place] chronic chronic 12:00:00 AM For Family EDT Health R74.0 Transaminitis Transaminitis [id number] 09/23/2019 The [facility] 12:00:00 AM For Family EST Health B35.6 Tinea cruris Tinea cruris Diagnosis 06/26/2020 The [facility] burns paiute 11:16:35 AM For Family EDT Health Transfer Note Transfer Note Diagnosis 06/01/2020 The [facility] 02:02:36 PM For Family EDT Health Missed Appointment Missed Appointment Diagnosis 0 The [facility] 03:50:15 PM For Family EDT Health B18.2 Chronic viral Chronic viral Diagnosis 04/23/2020 [facility] hepatitis C hepatitis C 02:37:43 PM For Family EDT Health M54.30 Sciatica, Sciatica, Diagnosis 02/27/2020 The [place] unspecified side unspecified side 11:28:52 AM F or Family EDT Health Z29.9 Encounter for Encounter for Diagnosis 02/27/2020 The [facility] itute prophylactic prophylactic 11:28:52 AM For Famil y measures, measures, EDT Health unspecified unspecified F11.20 Opioid dependence, Opioid dependence, Diagnosis 0 The [place] uncomplicated uncomplicated 11:28:52 AM For Fam tod EDT Health Enrollment Enrollment Diagnosis 02/19/2020 The [place] 11:40:37 AM For Family EDT Health Schizoaffective Schizoaffective Diagnosis 02/19/2020 The [place] Disorder Disorder 11:40:37 AM For Family EDT Health Virtual Visit Virtual Visit Diagnosis 02/19/2020 The [facility] itburns paiute (Telephone Only) (Telephone Only) 11:40:37 AM F or Family EDT Health Request For Appt Request For Appt Diagnosis 02/12/2020 Th e [place] 09:03:35 AM For Family EDT Health R35.0 Frequency of Frequency of Diagnosis 02/07/[address] [facility] micturition micturition 08:24:02 AM For Family EDT Health Z12.11 Encounter for Encounter for Diagnosis 02/07/[address] [facility] screening for screening for 08:24:02 AM For Leonard baron malignant neoplasm malignant neoplasm EDT Health of colon of colon R10.32 Left lower quadrant Left lower quadrant Diagnosis 020 The [place] pain pain 08:24:02 AM For Family EDT Health Physical Physical Diagnosis 02/07/2020 The [place] 08:24:02 AM For Family EDT Health F11.21 Opioid dependence, Opioid dependence, Diagnosis 0 The [place] in remission in remission 03:39:34 PM For Famil y EDT Health E78.5 Hyperlipidemia, Hyperlipidemia, Diagnosis 02/05/2020 The [place] unspecified unspecified 08:44:37 AM For Family EDT Health M10.00 Idiopathic gout, Idiopathic gout, Diagnosis 02/05/2020 Th e [place] unspecified site unspecified site 08:44:37 AM F or Family EDT Health N48.9 Disorder of penis, Disorder of penis, Diagnosis 0 The [place] unspecified unspecified 08:44:37 AM For Family EDT Health F17.200 Nicotine Nicotine Diagnosis 02/05/2020 The [place] dependence, dependence, 08:44:37 AM For Family unspecified, unspecified, EDT Health uncomplicated uncomplicated M54.32 Sciatica, left side Sciatica, left side Diagnosis 020 The [place] 08:44:37 AM For Family EDT Health M54.31 Sciatica, right Sciatica, right Diagnosis 02/05/2020 The [place] side side 08:44:37 AM For Family EDT Health Z71.89 Other specified Other specified Diagnosis 02/05/2020 The [facility] counseling counseling 08:44:37 AM For Family EDT Health Other Other Diagnosis 02/04/2020 The [place] 01:31:46 PM For Family EDT Health Z71.3 Dietary counseling Dietary counseling Diagnosis 0 The [place] and surveillance and surveillance 08:24:29 AM F or Family EDT Health Z68.22 Body mass index Body mass index Diagnosis 01/28/2020 The [place] (BMI) 22.0-22.9, (BMI) 22.0-22.9, 08:24:29 AM F or Family adult adult EDT Health R63.3 Feeding Feeding Diagnosis 01/28/2020 The [place] difficulties difficulties 08:24:29 AM For Famil y EDT Health Outreach Outreach Diagnosis 01/27/2020 The [facility] 03:16:52 PM For Family EDT Health Results Results Diagnosis 09/26/2019 The [place] 01:22:45 PM For Family EST Health Refill Follow-up Refill Follow-up Diagnosis 09/26/2019 Th e [place] 01:22:45 PM For Family EST Health R74.0 Nonspecific Nonspecific Diagnosis 09/23/2019 [facility] elevation of levels elevation of levels 03:08:3 0 PM For Family of transaminase and of transaminase and EST Health lactic acid lactic acid dehydrogenase [LDH] dehydrogenase (ldh) R63.4 Abnormal weight Abnormal weight Diagnosis 09/21/2019 The [place] loss loss 09:54:17 AM For Family EST Health Z23 Encounter for Encounter for Diagnosis 09/21/2019 The [place] [facility] immunization 09:54:17 AM For Famil y EST Health Follow-up for: Follow-up for: Diagnosis 09/21/2019 The In stitute 09:54:17 AM For Family EST Health Discharge Discharge Diagnosis 09/05/2019 The [place] 01:26:37 PM For Family EST Health Z12.2 Encounter for Encounter for Diagnosis 07/12/2019 The [facility] itute screening for screening for 03:55:16 PM For Fam tod malignant neoplasm malignant neoplasm EDT Health of respiratory of respiratory organs organs L03.011 Cellulitis of right Cellulitis of right Diagnosis 019 The [place] finger finger 03:55:16 PM For Family EDT Health Needs Letter Needs Letter Diagnosis 07/12/2019 The [facility] burns paiute 03:55:16 PM For Family EDT Health Surgeries/Procedures Procedure Description Date Indications Data Source(s) CBC WITH CBC WITH Routine 02/07/2020 Hep C 02/07/2020 Hep C The DIFFERENTIAL DIFFERENTIAL 9:16 AM EDT w/o 09:16:00 A M w/o [place] AND PLATELETS AND PLATELETS coma, EDT coma , For Family chronic chronic Health (HCC) (HCC) Hep C w/o coma, chronic (HCC) HEP A HEP A Routine 02/07/2020 Hep C w/o 02/07/2020 Hep C w/ o The AB.,TOTAL AB.,TOTAL 9:16 AM EDT coma, 09:16:00 AM coma , [place] W/ REFLEX W/ REFLEX chronic EDT chronic For Family (HCC) (HCC) Health Hep C w/o coma, chronic (HCC) 4TH GEN HIV 4TH GEN HIV Routine 02/07/2020 Hep C w/o 02/07/2020 Hep C The TEST-IFH TEST-IFH 9:16 AM EDT coma, 09:16:00 AM w/o [place] RECOMMENDED RECOMMENDED chronic EDT coma, For Family (HCC) chronic Health (HCC) Hep C w/o coma, chronic (HCC) HEP B HEP B Routine 02/07/2020 Hep C w/o 02/07/2020 Hep C w/ o The CORE AB, CORE AB, 9:16 AM EDT coma, 09:16:00 AM coma, [place] IGG IGG chronic EDT chronic For Fami ly (HCC) (HCC) Health Hep C w/o coma, chronic (HCC) URINALYSIS URINALYSIS Routine 02/07/2020 Left lower 02/07/2020 L eft lower The (COMPLETE) (COMPLETE) 9:16 AM EDT quadrant 09:16:00 AM q uadrant [place] abdominal EDT abdominal For Family pain pain Health Left lower quadrant abdominal pain COMP COMP Routine 02/07/2020 Hep C w/o 02/07/2020 Hep C w/ o The METABOLIC METABOLIC 9:16 AM EDT coma, 09:16:00 AM coma , [place] PANEL PANEL chronic EDT chronic For Fami ly (HCC) (HCC) Health Hep C w/o coma, chronic (HCC) HGA1C (HGB HGA1C (HGB Routine 02/07/2020 Urinary 02/07/2020 Urin melanie The GLYCOSYLATED) GLYCOSYLATED) 9:16 AM EDT frequency 09:16: 00 AM frequency [place] EDT For Fami ly Health Urinary frequency PROTHROMBIN PROTHROMBIN Routine 02/07/2020 Hep C w/o 02/07/2020 Hep C The TIME WITH INR TIME WITH INR 9:16 AM EDT coma, 09:16:00 AM w/o [place] chronic EDT coma, For Fami ly (HCC) chronic Health (HCC) Hep C w/o coma, chronic (HCC) TDAP TDAP Routine 09/21/2019 Need for prophylactic 019 Need for prophylactic The VACCINE VACCINE 11:07 AM vaccination with combined 11:07 :06 AM vaccination with combined [place] 7/> YR SQ IMM EST ekpnyrkbvk-cqgjkmf-iljskiloj EST wpppluiqgc-wsefpai-tknpggyxe For [facility] (DTP) vaccine (DTP) vacc ine Health Need for prophylactic vaccination with c ombined rtakavhoel-cqhgyri-xesfakych (DTP) vaccine COMP COMP Routine 09/21/2019 Weight 09/21/2019 Weight Th e METABOLIC METABOLIC 11:06 AM EST loss 11:06:00 AM los s [place] PANEL PANEL EST For Fami ly Health Weight loss CBC WITH CBC WITH Routine 09/21/2019 Weight 09/21/2019 Weight The DIFFERENTIAL DIFFERENTIAL 11:06 AM EST loss 11:06:00 AM loss [place] AND PLATELETS AND PLATELETS EST For [facility] [employer] Weight loss HGA1C (HGB HGA1C (HGB Routine 09/21/2019 Weight 09/21/2019 Sergio ht The GLYCOSYLATED) GLYCOSYLATED) 11:06 AM loss 11:06:00 AM loss [place] EST EST For [facility] ly Health Weight loss LIPID LIPID Routine 09/21/2019 Weight 09/21/2019 Weight Th e PANEL PANEL 11:06 AM EST loss 11:06:00 AM loss [place] [facility] Weight loss Results ID Date Data Source [id number] 02/07/2020 12:08:33 PM EDT The [facility] Reason for Visit and Comments: Physic al [83]Vitals (Last Filed):BP 151/91 (Orthostatic Site : Arm - Left, Orthostatic Pos- ition : Sitting, Orthostatic Cuff Size : Large Adult) P- ulse 72 Temp 98.8 F (37.1 C) (Oral) Ht 5 7" (1.702- m) Wt 157 lb (71.2 kg) BMI 24.59 kg/b1EqxfoaKacy Meier 02/07/2020 12:08 PM SignedI have identified [...] old male with history ofPatient Active P [employer] List Diagnosis Date Noted? Hep C w/o [...] Is followed by pain man agement in [place]- is given Percocet.? Asthma 07/01/2014 Moderate persistent. [...] alternatives), and using a shared-decision making model asa pplicable, the following plan was reached in collaboration with the patient(and/or hi s/her guardian as indicated):1. Left lower quadrant abdominal painPatient [facility]- CULTURE, URINE; Future- URINALYSIS [...] PCR, QUANTFu ture AppointmentsDate Time Provider Department [place]02/12/2020 10:45 AM [facility] [place]02/24/2020 9:40 AM Rob Metzger[facility] PMHNP [facility] [place]02/28/2020 8:45 AM Vicky Hendrickson MD [facility]03/11/2020 3:00 PM Vicky Hendrickson MD [facility] Yaron Fonseca Diagnosis:R10.32 Left lower quadrant abdominal [...] by: Dada Dang PA - ReviewedLevel of Service:97616 OFFIC /OUTPT VISIT E&M EST LOW-MOD SEVER* [...] y of intranasal drug abuse Susan house: [phone] x [phone]; delinquency prevention social worker neyda Krishnan ent s cell phone: [phone] 02/05/2019 Lives in shared apartment as of nov 2018, previou s to that was homeless.Social History Topics Tobacco Use: Yes Cigarettes (Packs/Day ): .5 Alcohol Use: Yes 2 oz/week 4 drinks per week Comment: patient reports roger chamberlain 4 small "nips" bottles Drug Use: Yes Frequency: 5 per week Types: Mar ijuana Sexually Active: NeverImmunizations Administered Influenza, In Elbert nixon* 06/27/2019 Influenza, Seasonal, Injectable 08/03/2016 0 07/06/2017 Pneumococcal polysaccharide vaccin* 07/01/2014 influenza, injectable, quadr ivalen* 08/27/2018 Name Value Range Interpretation Code Description Data Tessa rce(s) Supporting Document(s ) ID Date Data Source [id number] 02/13/2020 11:41:00 AM EDT The [facility] Name Value Range Interpretation Description Data Sup porting Code Source(s) Document(s ) OCCULT BLOOD NEGATIVE NEGATIVE The IMMUNOCHEM [facility] ID Date Data Source [id number] 02/12/2020 04:52:00 PM EDT The [facility] Name Value Range Interpretation Description Data Sup porting Code Source(s) Document(s ) HEPATITIS C Type 3 See Below The GENOTYPE [facility] NOTE: Hepatitis C Virus Genotype/Subtype assay is an FDA approved assay able to identify the following subtypes: 1a , 1b, 1, 2, 3, 4, 5, 6. ASSAY INFORMATION: Test# 2161 (Hepatitis C Genotype) perfor med using Siemens Versant(R) HCV Genotype 2.0 Assay (LiPA) . ID Date Data Source [id number] 02/11/2020 01:37:[address] [facility] Name Value Range Interpretation Description Data Sup porting Code Source(s) Document(s ) BILIRUBIN, TOTAL 0.4 mg/dL <1.2 The [facility] G-GTP 20 U/L 10-71 The [facility] ALT (SGPT) 42 U/L <41 Above high The normal [facility] APOLIPOPROTEIN 164 mg/dL 104-202 The A1 [facility] HAPTOGLOBIN 138 mg/dL 30-200 The [facility] GHWFE-7-IBKPYKMX 248 mg/dL 130-300 The BULIN [facility] FIBROSIS SCORE 0.24 NA The [facility] FIBROSIS STAGE F0-F1 The [facility] FIBROSIS INTERP no The fibrosis [facility] NECROINFLAMMAT 0.22 NA The ACTIVITY SCORE [facility] NECROINFLAMMAT A0-A1 The ACTIVITY GRADE [facility] NECROINFLAMMAT no The INTERP activity [facility] FIBROSIS AND NECROINFLAMMATION SCORES AND INTERPR ETATIONS FibroTest Score Metavir Score0.00-0.21 F0 no fibrosis0.22-0.27 F0-F10.28-0.31 F1 minimal fibrosis0.32-0.48 F1-F20.49-0.58 F2 moderate fibrosis0.59-0.72 F3 advanced fibrosis0.73-0.74 F3-F40.75-1.00 F4 severe fibrosis ActiTest Score Metavir Score0.00-0.17 A0 no activity0.18-0.29 A0-A10.30-0.36 A1 min imal activity0.37-0.52 A1-A20.53-0.60 A2 significant activity0.61-0.62 A2-A30.63-1.00 A3 severe activity Performed By: Must See [place] [address] P: [phone] [...] and Cirrhosis in Chronic Hepatitis B: A [place]-Analysis. Am J Gastroenterol 2014; 109:796-809. 2. Shay G, et al. The impact of liver disease aetiology and the stages of hepatic fibrosis on the performance of non invasive fibrosis markers: an international study of 2411 cases. Aliment Pharmacol Ther 2011 ;34:5781-9941. ID Date Data Source [id number] 02/10/2020 01:56:00 PM EDT The [facility] Name Value Range Interpretation Code Description Data Tessa rce(s) Supporting Document(s ) HEP 20335 <15 Above high normal The Institut e C,RNA,IU IU/mL For [facility] HEP C ULTRAQUANT, RNA INTERPRETATION HEP-C (IU/mL) [...] 4.95 log-10 <1.18 Above high normal The [facility] ID Date Data Source [id number] 02/09/2020 11:29:00 AM EDT The [facility] Name Value Range Interpretation Description Data Sup porting Code Source(s) Document(s ) CULTURE, NO GROWTH NO GROWTH The URINE [facility] SITE: URINE ID Date Data Source [id number] 02/08/2020 11:20:00 AM EDT The [facility] Name Value Range Interpretation Code Description Data [...] in some patients. ID Date Data Source [id number] 02/08/2020 11:20:00 AM EDT The [facility] Name Value Range Interpretation Description Data Sup porting Code Source(s) Document(s ) HEPATITIS A Non-React Non-Reac The ANTIBODY maya tive [facility] ID Date Data Source [id number] 02/08/2020 11:20:00 AM EDT The [facility] Name Value Range Interpretation Description Data Sup porting Code Source(s) Document(s ) HIV 1/2 Non-React Non-React The [place] AB, EIA maya maya [facility] Assay Information: Assay for the detecti on of HIV p24 antigen and antibodies to Human Immunodeficiency Virus Type 1,including Group O (HIV-1 + "O") and/or T ype 2 (HIV-2) Method: Chemiluminescence (French Girls) ID Date Data Source [id number] 02/08/2020 05:46:00 AM EDT The [facility] Name Value Range Interpretation Description Data Sup porting Code Source(s) Document(s ) PROTEIN, 7.2 g/dL 5.9-8.4 The TOTAL, SERUM [facility] ALBUMIN 4.2 g/dL 3.5-5.2 The [facility] GLOBULIN, 3.0 g/dL 1.7-3.7 The TOTAL [facility] A/G RATIO 1.4 1.1-2.9 The Ratio [facility] SODIUM 140 135-147 The mmol/L [facility] POTASSIUM 4.4 3.5-5.5 The mmol/L [facility] CHLORIDE 103 96-108 The mmol/L [facility] CARBON DIOXIDE 23 22-29 The mmol/L [facility] UREA NITROGEN 14 mg/dL 6-20 The (BUN) [facility] CREATININE 0.96 0.67-1.3 The mg/dL 1 [facility] EGFR 87 >or=60 The mL/min [facility] EGFR 101 >or=60 The [place] mL/min [facility] BUN/CREATININE 14.6 NA 10.0-28. The RATIO 0 [facility] CALCIUM 9.5 8.6-10.4 The mg/dL [facility] BILIRUBIN, 0.4 <1.2 The TOTAL mg/dL [facility] ALKALINE 74 U/L 40-156 The PHOSPHATASE [facility] AST (SGOT) 44 U/L <40 Above high normal The [facility] ALT (SGPT) 42 U/L <41 Above high normal The [facility] GLUCOSE 109 70-99 Above high normal The mg/dL [facility] ID Date Data Source [id number] 02/08/2020 05:14:00 AM EDT The [facility] Name Value Range Interpretation Description Data Sup porting Code Source(s) Document(s ) HEMOGLOBIN A1C 5.5 % <5.7 The [facility] HEMOGLOBIN A1c AND eAG REFERENCE RANGES A1c(%) DIABETES CATEGORY* <5.7 Normal (non-diabetic) 5.7-6.[address] sk of diabetes =>6.5 Consistent with diabetes A1c(%) eAG(ESTIMATED AVERAGE PLASMA GLUCOSE)(mg/dL) 6 126 7 154 8 183 9 212 10 240 11 269 12 298 *recom mended ranges-[place] [employer](2010) NOTE: The amount of gl ycated hemoglobin as measured by the HbA1c test may be overestimated in [place] Americans and should not be used as the sole parameter of glycemic burden. Similarly, hemolysis, genetic hemoglobin variants and chemically modified hemoglo bin derivatives (as seen in renal failure, smoking, aspirin use) may also affect glycated hemoglobin levels. ID Date Data Source [id number] 02/08/2020 02:56:00 AM EDT The [facility] Name Value Range Interpretation Description Data Sup porting Code Source(s) Document(s ) PROTIME 10.3 sec 9.1-11.9 The [facility] INTR. NORM. 0.92 NA 0.80-1.07 The RATIO(INR) [facility] CLINICAL INDICATIONS FOR INR USE Reference RangeProphylaxis or treatment of venous thrombosis, 2.00-3.00systemic embolization, and pulm onary embolus High-risk patients with mechanical heart valves 2.50-3.50 Normal Non-Medicated Patients 0.80-1.07 NOTE: INR values be low 2.00 for patients on warfarin therapy would be considered sub-therapeu tic for the above conditions. ID Date Data Source [id number] 02/08/2020 02:53:00 AM EDT The [facility] Name Value Range Interpretation Description Data Sup porting Code Source(s) Document(s ) SPECIFIC 1.006 NA 1.003-1.03 The GRAVITY, UR 0 [place] (S.G.) [facility] PH, UR 5.5 NA 5.0-8.0 The [facility] PROTEIN, NEGATIVE NEGATIVE The TOTAL, RANDOM [place] URINE [facility] GLUCOSE, NEGATIVE NEGATIVE The URINE, QUAL. [facility] KETONE, QUAL. NEGATIVE NEGATIVE The [facility] UROBILINOGEN 0.2 mg/dL 0.2-1.0 The [facility] BILIRUBIN, NEGATIVE NEGATIVE The URINE [facility] BLOOD, URINE NEGATIVE NEGATIVE The [facility] NITRITE, UR NEGATIVE NEGATIVE The (NI) [facility] CRYSTALS NONE NONE The [facility] WBC, URINE 0-4 /[HPF] 0-4 The [facility] RBC, URINE NONE SEEN NONE SEEN The /[HPF] [facility] CAST, RBC, NONE SEEN 0-1 The URINE /[LPF] [facility] CAST, HYALINE, 0-4 /[LPF] 0-4 The URINE [facility] CAST, NONE NONE-FEW The EPITHELIAL, [place] URINE [facility] CAST, NONE SEEN 0-1 The GRANULAR, /[LPF] [place] URINE [facility] BACTERIA, NONE NONE-FEW The URINE [facility] CRYSTALS, NONE NONE The OTHER, URINE /[HPF] [facility] LEUKOCYTE NEGATIVE NEGATIVE The ESTERASE [facility] COLOR YELLOW YELLOW, The [facility] CHARACTER CLEAR CLEAR The [facility] ID Date Data Source [id number] 02/08/2020 02:32:00 AM EDT The [facility] Name Value Range Interpretation Description Data Sup porting Code Source(s) Document(s ) WHITE BLOOD 7.51 3.66-10. The CELL (WBC) x10(3)/u 60 [place] COUNT L [facility] RED BLOOD CELL 4.64 3.94-5.7 The (RBC) COUNT x10(6)/u 6 [place] L [facility] HEMOGLOBIN 13.8 12.0-16. The g/dL [address] [place] [address] HEMATOCRIT 40.6 % 34.6-49. The 6 [facility] MCV 87.5 fL 78.0-98. The 0 [facility] MCH 29.7 pg 25.8-33. The 1 [facility] MCHC 34.0 31.7-35. The g/dL 3 [facility] RDW 12.8 % 12.2-15. The 3 [facility] POLYS 57.9 % 34.9-75. The 3 [facility] POLYS, ABS. 4.36 1.30-7.0 The COUNT x10(3)/u 0 [place] L For [facility] LYMPHOCYTES 30.8 % 14.0-51. The 8 [facility] LYMPHS, ABS. 2.31 0.80-3.0 The COUNT x10(3)/u 0 [place] L [facility] MONOCYTES 8.0 % 3.5-13.2 The [facility] MONOS, ABS. 0.60 0.00-1.0 The COUNT x10(3)/u 0 [place] L [facility] EOSINOPHILS 2.3 % 0.0-6.2 The [facility] EOS, ABS. COUNT 0.17 0.00-0.4 The x10(3)/u 0 [place] L [facility] BASOPHILS 0.7 % 0.0-1.0 The [facility] BASOS, ABS. 0.05 0.00-0.1 The COUNT x10(3)/u 0 [place] L [facility] IMMATURE 0.3 % 0.0-1.0 The [facility] PLATELETS 264 140-425 The x10(3)/u [place] L For [facility] MPV 10.2 fL 8.6-12.1 The [facility] ID Date Data Source [id number] 09/27/2019 01:09:08 PM EST The [facility] Reason for Visit and Comments: Refill Follow-up [...] ,orning as awalk-in.Pat ient left with-out being seenEshauEmi Eddy left prior to being seen.Primary Diagnos is:[id number] LEFT WITHOUT BEING SEENPrescriptions as of 09/27/2019 [...] y of intranasal drug abuse Susan house: [phone] x [phone]; delinquency prevention social worker neyda Krishnan ent s cell phone: [phone] 02/05/2019 Lives in shared apartment as of nov 2018, previou s to that was homeless.Social History Topics Tobacco Use: Yes Cigarettes (Packs/Day ): .5 Alcohol Use: Yes 2 oz/week 4 drinks per week Comment: patient reports dri nking 4 small "nips" bottles Drug Use: Yes Frequency: 5 per week Types: Mar abhijituana Sexually Active: NeverImmunizations Administered Influenza, In terrakayleeElbert andersonby* 06/27/2019 Influenza, Seasonal, Injectable 08/03/2016 0 07/06/2017 Pneumococcal polysaccharide vaccin* 07/01/2014 influenza, injectable, quadr ivalen* 08/27/2018 Name Value Range Interpretation Code Description Data Tessa rce(s) Supporting Document(s ) ID Date Data Source [id number] 09/23/2019 05:20:27 PM [facility] The [place] For [facility] Reason for Visit and Comments: Follow -up [...] (69.9 kg) - SpO2 100% BMI 24.12 kg/b7Tzjbvo History RecordedAmi Cano 09/23/2019 5:20 PM SignedI have identified this patient to be Carson LopezHAZEL -1960.Vitals: 09/21/19 1016 09/21/19 1020BP: (!) 162/92 [...] ns sincethis morning Headache since this morning.Carson Padilla at [facility] today to have blood drawn. 1 lav, 1 sst tubessent to bioreferance lab. He tolera stefanie the procedure well and will return [facility] for results.Cherie Wilde MAKirkpatrick, Kelly, [...] (69.9 kg) | SpO2 100% | B PA 24.12kg/mThe patient appears well, in no apparent [...] IMMUNOCHEMISTRY3. Need for prophylactic vaccination with combined fachltcjns-rpjykhf-zduarrgtu(DTP) vaccin e- TDAP VACCINE 7 YRS/> IM; [...] LIPID PANELFuture AppointmentsDate Time Provid er Department [id number]/25/2019 2:00 Tomasa Aarna, PMHNP FPCHPSYCH [facility] 10:00 AM Sowmya Zamorano DO [facility] [employer] Huitron MedicinePrimary Diagnosis:M54.32 Left sided sciatica Other Diagnoses:Z12.11 Special screening for malignant neoplasms, colon Z23 Need fo r prophylactic vaccination with iimiiifrvvycmtrwoo-gtdmrpi-cbuaxhrzl (DT P) vaccine R63.4 Weight lossPrescriptions as [...] by mouth nightly clotrimazole 1 % Apply lpn cma ally * 45 g 2 07/12/2019 10/10/2019 [...] history of intranasal drug abuse Susan house: [phone] x [phone]; delinquency prevention social worker neyda Murphy Patient s cell phone: [phone] 02/05/2019 Lives in shared apartment as of nov 2018, previous to th at was homeless.Social History Topics Tobacco Use: Yes Cigarettes (P acks/Day): .5 Alcohol Use: Yes 2 oz/week 4 drinks per week Comment : patient reports drinking 4 small "nips" bottles Drug Use: Yes Freq uency: 5 per week Types: Marijuana Sexually Active: NeverImmunizations Administered Influenza, Injectable, Madin Beltrami* Influenza, Seasonal, Injectable 08/03/2016 07/06/2017 Pneumococcal p olysaccharide vaccin* 07/01/2014 influenza, injectable, quadrivalen* Name Value Range Interpretation Code Description Data Tessa rce(s) Supporting Document(s ) ID Date Data Source [id number] 09/22/2019 06:56:[address] [facility] Name Value Range Interpretation Description Data Sup porting Code Source(s) Document(s ) HEMOGLOBIN A1C 5.4 % <5.7 The [facility] HEMOGLOBIN A1c AND eAG REFERENCE RANGES A1c(%) DIABETES CATEGORY* <5.7 Normal (non-diabetic) 5.7-6.4 Increased ri sk of diabetes =>6.5 Consistent with diabetes A1c(%) eAG(ESTIMATED AVERAGE PLASMA GLUCOSE)(mg/dL) 6 126 7 154 8 183 9 212 10 240 11 269 12 298 *recom mended ranges-[place] [employer](2010) NOTE: The amount of gl ycated hemoglobin as measured by the HbA1c test may be overestimated in Reina n Americans and should not be used as the sole parameter of glycemic burden. Similarly, hemolysis, genetic hemoglobin variants and chemically modified hemoglo bin derivatives (as seen in renal failure, smoking, aspirin use) may also affect glycated hemoglobin levels. ID Date Data Source [id number] 09/22/2019 06:18:[address] [facility] Name Value Range Interpretation Description Data Sup porting Code Source(s) Document(s ) WHITE BLOOD 6.92 3.66-10. The CELL (WBC) x10(3)/u 60 [place] COUNT L For [facility] RED BLOOD CELL 4.48 3.94-5.7 The (RBC) COUNT x10(6)/u 6 [place] L [facility] HEMOGLOBIN 12.9 12.0-16. The g/dL 9 [facility] HEMATOCRIT 40.3 % 34.6-49. The 6 [facility] MCV 90.0 fL 78.0-98. The 0 [facility] MCH 28.8 pg 25.8-33. The 1 [facility] MCHC 32.0 31.7-35. The g/dL 3 [facility] RDW 14.3 % 12.2-15. The 3 [facility] POLYS 60.0 % 34.9-75. The 3 [facility] POLYS, ABS. 4.15 1.30-7.0 The COUNT x10(3)/u 0 [place] L [facility] LYMPHOCYTES 28.2 % 14.0-51. The 8 [facility] LYMPHS, ABS. 1.95 0.80-3.0 The COUNT x10(3)/u 0 [place] L [facility] MONOCYTES 9.4 % 3.5-13.2 The [facility] MONOS, ABS. 0.65 0.00-1.0 The COUNT x10(3)/u 0 [place] L [facility] EOSINOPHILS 2.0 % 0.0-6.2 The [facility] EOS, ABS. COUNT 0.14 0.00-0.4 The x10(3)/u 0 [place] L [facility] BASOPHILS 0.3 % 0.0-1.0 The [facility] BASOS, ABS. 0.02 0.00-0.1 The COUNT x10(3)/u 0 [place] L [facility] IMMATURE 0.1 % 0.0-1.0 The GRANULOCYTES [facility] PLATELETS 270 140-425 The x10(3)/u [place] L [facility] MPV 9.7 fL 8.6-12.1 The [facility] ID Date Data Source [id number] 09/22/2019 03:19:00 AM EST The [facility] Name Value Range Interpretation Description Data Sup porting Code Source(s) Document(s ) CHOLESTEROL 180 <200 The mg/dL [facility] HDL CHOLESTEROL 61 mg/dL >40 The [facility] TRIGLYCERIDES 124 <150 The mg/dL [facility] HDL % OF 34 % >14 The CHOLESTEROL [facility] Evaluation: BELOW AVERAGE RISK CHOL/HDL RATIO 3.0 NA <7.4 The [place] F [facility] Evaluation: BELOW AVERAGE RISK HDL/LDL RATIO 1.54 NA <3.56 The [facility] LDL CHOLESTEROL 94 mg/dL <100 The [facility] VLDL CHOLESTEROL ARNOL 25 mg/dL 7-32 [facility] HDL CHOL. (LDL+VLDL) 119 mg/dL <130 [facility] ID Date Data Source [id number] 09/22/2019 03:19:00 AM EST The [facility] Name Value Range Interpretation Description Data Sup porting Code Source(s) Document(s ) PROTEIN, 7.3 g/dL 5.9-8.4 The TOTAL, SERUM [facility] ALBUMIN 4.1 g/dL 3.5-5.2 The [facility] GLOBULIN, 3.2 g/dL 1.7-3.7 The TOTAL [facility] [facility] A/G RATIO 1.3 1.1-2.9 The Ratio [facility] SODIUM 144 135-147 The mmol/L [facility] POTASSIUM 4.7 3.5-5.5 The mmol/L [facility] CHLORIDE 104 96-108 The mmol/L [facility] CARBON DIOXIDE 26 22-29 The mmol/L [facility] UREA NITROGEN 11 mg/dL 6-20 The (BUN) [facility] CREATININE 0.87 0.67-1.3 The mg/dL 1 [facility] EGFR 95 >or=60 The mL/min [facility] EGFR 110 >or=60 The [place] mL/min [facility] BUN/CREATININE 12.6 10.0-28. The RATIO Ratio 0 [facility] CALCIUM 9.4 8.6-10.4 The mg/dL [facility] BILIRUBIN, 0.3 <1.2 The TOTAL mg/dL [facility] ALKALINE 153 U/L 40-156 The PHOSPHATASE [facility] AST (SGOT) 95 U/L <40 Above high normal The [facility] ALT (SGPT) 135 U/L <41 Above high normal The [facility] GLUCOSE 95 mg/dL 70-99 The [facility] ID Date Data Source [id number] 07/19/2019 01:13:04 PM EDT The [facility] Reason for Visit and Comments: Physic al [...] oz (71.5 kg) SpO2 96% BMI 24.68 kg/j6MnlgdzTavia Park 07/19/2019 1:13 PM SignedI have identified this patient to be Carson Dolllori, HAZEL -1960.Chief Com plaintPatient presents with Physical [...] | SpO2 96% | BMI 24.68 kg/mJessica Sreekanth Mackay Andrea, MD 07/19/2019 1:13 PM SignedI have identified this pa tient to be Carson Dolllori, -1960.Chief ComplaintPatient present s with Physical patient [...] mouth 2 (two) times a day Nystatin 704954 UNIT/GM Apply exte* 60 g 2 02/05/2019 [...] 9Reviewed by: Tavia Park - ReviewedLevel of Service:35269 OFFIC/OUTPT VISIT E &M EST LOW-MOD SEVER* [...] history of intranasal drug abuse Susan house: [phone] x [phone]; delinquency prevention social worker neyda Lazardeanlori Patient s cell phone: 02/05/2019 [...] Supporting Document(s ) ID Date Data Source [id number] 05/30/2019 01:28:15 PM EDT [facility] Reason for Visit and Comments: Hand P [...] been using power with no reliefReview Of NanoInkEye s: negativeEars/Nose/Throat: negativeRespiratory: negativeCardiovas cular: negativeSkin: right middle finger swelling, see abovePatient Active Proble m ListDiagnosis Schizoaffective disorder (HCC) Hypertension Back pain Neck nadia n Asthma Breast mass Opioid dependence on agonist therapy ([facility]) Health care maint enance Tobacco abuseNo Known [...] e Gets together: Not on file Attends [facility] service: Not on file Active m ember [...] tory of intranasal drug abuse Susan house: [phone] x [phone]; delinquency prevention social worker gifty Murphy Patient s cell phone: [phone] 02/05/2019 Lives in shared apartment as o [...] (20 mg total) by mouth daily Nystatin 477218 UNIT/GM Apply exte* 60 g 2 02/05/2019 [...] by: Dada Dang PA - ReviewedLevel of Service:58818.0* PROCEDURE BILLING ONLY Historical Information ----- ------Past [...] 06/28/2018 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 [facility]: [phone] x [phone]; delinquency prevention social worker neyda Murphy Patient s cell phone: 02/05/2019 [...] EDT Health Cigarettes 03/11/2020 UNK completed [facility] smoked current 12:00:00 AM For Famil y (pack per day) - EDT Health Reported Smoking 03/11/2020 Current every completed Current every day [facility] 12:00:00 AM day smoker smoker For Family EDT Health Tobacco smoking 03/11/2020 Current every The In stitute status NHIS 12:00:00 AM day smoker For Family EDT Health Cigarettes 03/11/2020 UNK [facility] smoked current 12:00:00 AM For Famil y (pack per day) - EDT Health Reported Tobacco use and 03/11/2020 Never used The Insti tute exposure 12:00:00 AM For Family EDT Health Alcohol intake 02/07/2020 Current The Instit burns paiute 12:00:00 AM drinker of For Family EDT alcohol Health (finding) Tobacco smoking 02/07/2020 Current every The In stitute status NHIS 12:00:00 AM day smoker For Family EDT Health Cigarettes 02/07/2020 UNK [facility] smoked current 12:00:00 AM For Famil y (pack per day) - EDT Health Reported Tobacco use and 02/07/2020 Never used The Insti tute exposure 12:00:00 AM For Family EDT Health Tobacco use and 09/21/2019 Never used The Insti tute exposure 12:00:00 AM For Family EST Health Cigarettes 09/21/2019 UNK [facility] smoked current 12:00:00 AM For Famil y (pack per day) - EST Health Reported Alcohol intake 09/21/2019 Current The Instit burns paiute 12:00:00 AM drinker of For Family EST alcohol Health (finding) Tobacco smoking 09/21/2019 Current every The In stitute status NHIS 12:00:00 AM day smoker For Family EST Health Alcohol intake 07/19/2019 Current completed Current drinker The I nstitute 12:00:00 AM drinker of of alcohol For Family EDT alcohol (finding) Health (finding) Cigarettes 07/19/2019 UNK completed [facility] smoked current 12:00:00 AM For Famil y (pack per day) - EDT Health Reported Tobacco smoking 07/19/2019 Current every completed Current every day [facility] status NHIS 12:00:00 AM day smoker smoker For Family EDT Health Alcohol intake 05/30/2019 Current completed Current drinker The I nstitute 12:00:00 AM drinker of of alcohol For Family EDT alcohol (finding) Health (finding) Cigarettes 05/30/2019 UNK completed [facility] smoked current 12:00:00 AM For Famil y (pack per day) - EDT Health Reported Smoking 05/30/2019 Current every completed Current every day [facility] 12:00:00 AM day smoker smoker For Family EDT Health Vital Signs ID Date Data Source UNK Name Value Range Interpretation Code Description Data Source(s) Body weight 71.215 kg 71.215 kg The [facility] Body height 170.2 cm 170.2 cm The [facility] Body temperature 37.11 Tamie 37.11 Tamie The [facility] itute For [facility] Health Heart rate 72 /min 72 /min The [facility] Diastolic blood 91 mm[Hg] 91 mm[Hg] The Insti tute pressure For Family Health Systolic blood 151 mm[Hg] 151 mm[Hg] The Instit burns paiute pressure For Family Health Diastolic blood 78 mm[Hg] 78 mm[Hg] The Insti tute pressure For Family Health Systolic blood 132 mm[Hg] 132 mm[Hg] The Instit burns paiute pressure For Family Health Oxygen saturation 100 % 100 % The Ins titute in Arterial blood For Fam tod by Pulse oximetry [facility] Body weight 69.854 kg 69.854 kg The [facility] Body height 170.2 cm 170.2 cm The [facility] Respiratory rate 18 /min 18 /min The [facility] itute For [facility] Health Body temperature 36.78 Tamie 36.78 Tamie The Inst itute For [facility] Health Heart rate 62 /min 62 /min The [facility] Oxygen saturation 96 % 96 % The Ins titute in Arterial blood For Fam tod by Pulse oximetry Health Body mass index 24.68 kg/m2 24.68 kg/m2 The Ins titute (BMI) [Ratio] For [facility] Body weight 71.487 kg 71.487 kg [facility] Measured For [facility] Body height 170.2 cm 170.2 cm The [facility] Body temperature 36.78 Tamie 36.78 Tamie The Inst itute For [facility] Heart rate 54 /min 54 /min The [facility] Diastolic blood 67 mm[Hg] 67 mm[Hg] The Insti tute pressure For [facility] Systolic blood 108 mm[Hg] 108 mm[Hg] The Instit burns paiute pressure For [facility] Body mass index 25.82 kg/m2 25.82 kg/m2 The Ins titute (BMI) [Ratio] For [facility] Body weight 72.576 kg 72.576 kg [facility] Measured For [facility] Body temperature 36.89 Tamie 36.89 Tamie The Inst itute For [facility] Heart rate 76 /min 76 /min The [facility] Diastolic blood 76 mm[Hg] 76 mm[Hg] The Insti tute pressure For [facility] Systolic blood 106 mm[Hg] 106 mm[Hg] The Instit burns paiute pressure For [facility] Oxygen saturation 100 % 100 % The Ins titute in Arterial blood For [facility] tod by Pulse oximetry [facility] Body mass index 26.47 kg/m2 26.47 kg/m2 The Ins titute (BMI) [Ratio] For [facility] Body weight 74.39 kg 74.39 kg [facility] Measured For [facility] Body height 167.6 cm 167.6 cm The [facility] Respiratory rate 19 /min 19 /min The Inst itute For [facility] Body temperature 36.39 Tamie 36.39 Tamie The Inst itute For [facility] Heart rate 62 /min 62 /min The [facility] Diastolic blood 84 mm[Hg] 84 mm[Hg] The Insti tute pressure For [facility] Systolic blood 135 mm[Hg] 135 mm[Hg] The Instit burns paiute pressure For [facility] Patient Treatment Plan of Care Planned Activity Planned Date Details Description Data Source (s) Ketoconazole 20 MG/ML 06/29/2020 The In stitute For Topical Cream 12:00:00 AM EDT Family [facility] th ALBUTEROL SULFATE (VENTOLIN 06/29/2020 [facility] HFA) 108 (90 Base) MCG/ACT 12:00:00 AM EDT [facility] Inhalation Aero Soln Aspirin 81 MG Delayed 06/29/2020 The In stitute For Release Oral Tablet 12:00:00 AM [facility] gabapentin 300 MG Oral 06/29/2020 The I nstitute For Capsule 12:00:00 [facility] 20 MG Oral 06/29/2020 [facility]it[facility] mometasone 06/29/2020 The Ins titute For furoate 0.2 MG/ACTUAT Dry 12:00:00 AM [facility] Powder Inhaler Glecaprevir-Pibrentasvir 06/29/2020 [facility] 100-40 MG Oral Tab 12:00:00 AM [facility] PARoxetine HCl 40 MG Oral 06/01/2020 [facility] [place] Oral 06/01/2020 [facility] Tablet 12:00:00 AM [facility] gabapentin 300 MG Oral 06/01/2020 The I nstitute For Capsule [facility] MG Oral 03/10/2020 The I n[facility] For Capsule [facility] PARox[facility] HCl 40 MG Oral 03/10/2020 [facility] [place] Tab [facility] aripip[facility]ole 10 MG Oral 03/10/2020 [facility] Tablet 12:00:00 AM [facility] NARCAN KIT 02/28/2020 [facility] ALBUTEROL SULFATE (VENTOLIN 02/05/2020 [facility] HFA) 108 (90 Base) MCG/ACT 12:00:00 AM [facility] Inhalation Aero Soln Aspirin 81 MG Delayed 02/05/2020 The In stitute For Release Oral Tablet 12:00:00 AM [facility] Lisinopril 20 MG Oral 02/05/2020 The In stitute For Tablet 12:00:00 AM [facility] atorvastatin 10 MG Oral 02/05/2020 [facility] momet[facility] 12/17/2019 The Ins titute For furoate 0.2 MG/ACTUAT Dry 12:00:00 AM [facility] Powder Inhaler Nutritional Supplements 07/12/2019 [facility] (ENSURE COMPLETE) Oral 12:00:00 AM [facility] Liquid Respiratory Therapy 07/12/2019 The Inst itute For Supplies (NEBULIZER 12:00:00 AM [facility] COMPRESSOR) Does not apply Kit Lisinopril 20 MG Oral 07/12/2019 The In stitute For Tablet 12:00:00 AM [facility] atorvastatin 10 MG Oral 07/12/2019 [facility] Tablet 12:00:00 AM [facility] Aspirin 81 MG Delayed 07/12/2019 The In stitute For Release Oral Tablet 12:00:00 AM [facility] ALBUTEROL SULFATE (VENTOLIN 07/12/2019 [facility] HFA) 108 (90 Base) MCG/ACT 12:00:00 AM [facility] Inhalation Aero Soln gabapentin 300 MG Oral 07/12/2019 The I nstitute For Capsule 12:00:00 AM [facility] 120 ACTUAT Fluticasone 07/12/2019 The I nstitute For propionate 0.11 MG/ACTUAT 12:00:00 AM [facility] Metered Dose Inhaler Clotrimazole 10 MG/ML 07/12/2019 The In stitute For Topical Cream 12:00:00 AM [facility] Albuterol 0.83 MG/ML 07/12/2019 The Ins titute For Inhalant Solution 12:00:00 AM [facility] PARoxetine HCl 40 MG Oral 07/01/2019 [facility] [place] For Tab 12:00:00 AM [facility] aripiprazole 10 MG Oral 07/01/2019 [facility] Tablet 12:00:00 AM [facility] FLUCELVAX QUADRIVALENT 06/27/2019 The I nstitute For Intramuscular Suspension 12:00:00 AM [facility] lidocaine (XYLOCAINE) 1 % 05/30/2019 [facility] [place] For injection 01:30:00 PM [facility] Clotrimazole 10 MG/ML 05/30/2019 The In stitute For Topical Cream 12:00:00 AM [facility] Sulfamethoxazole 800 MG / 05/30/2019 [facility] Trimethoprim 160 MG Oral 12:00:00 AM [facility] Tablet PARoxetine HCl 40 MG Oral 02/25/2019 [facility] [place] Tab 12:00:00 AM EDT [facility] aripiprazole 10 MG Oral 02/25/2019 [facility] Tablet 12:00:00 AM EDT [facility] Nystatin 100 UNT/MG Topical 02/05/2019 [facility] Powder 12:00:00 AM [facility] ALBUTEROL SULFATE 108 (90 02/05/2019 [facility] [place] For Base) MCG/ACT Inhalation 12:00:00 AM T [facility] Aero Soln 120 ACTUAT Fluticasone 02/05/2019 The I nstitute For propionate 0.11 MG/ACTUAT 12:00:00 AM [facility] Metered Dose Inhaler Lisinopril 20 MG Oral 02/05/2019 The [facility] stitute For [facility] Aspirin 81 MG Delayed 02/05/2019 The In stitute For Release Oral Tablet 12:00:00 AM EDT [facility] atorvastatin 10 MG Oral 02/05/2019 [facility] Tablet 12:00:00 AM EDT Critical access hospital
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
== END 2020-07-24 02:49 | disposition short-term general hospital (02) ==
LOC: JER 19:40
PROC: 0JQ10ZZ Repair Face Subcutaneous Tissue and Fascia, Open Approach (ICD-10-PCS; principal; 2020-07-23)
DX: S01.511A Laceration without foreign body of lip, initial encounter (principal)
CPT/HCPCS: 70450-TC; 70486-TC; 99284-25

== ENCOUNTER 2020-07-28 14:27 | Inpatient (IN) | payer OTHER ==
--- NOTE | 2020-07-28 12:56 | HP ---
[facility] Rehab Assess/Revision - Admission History Admitted to Rehab from: [facility] Date of Admission to Rehab: 07/28/20 - Findings Detox History & Physical reviewed: Yes Concur with findings: Yes Comments/Additional Findings: transferred from detox to rehab admission as per protocol Inpatient Rehab Admission - Rehab Decision to Admit Inpatient rehab admission?: Yes - Initial Determination Are CD services needed?: Yes Free of communicable disease: Yes Not in need of hospitalization: Yes - Rehab Admission Criteria Previous failed treatment: Yes Poor recovery environment: Yes Comorbidities: Yes Lacks judgement: Yes Patient is meeting Inpatient Rehab admission criteria:: Yes
[~2020-07-28 14:27] MED LIST: IBUPROFEN 400 MG TABLET (FP) PO PRN; LOPERAMIDE HCL 2 MG CAPSULE PO PRN; MAG HYDROX/AL HYDROX/SIMETH 30 ML UNIT-DOSE CUP PO PRN; MAGNESIUM CITRATE 300 ML BOTTLE PO PRN; MAGNESIUM HYDROX 2400MG/30ML ORAL SUSPENSION 30 ML CUP PO PRN; NICOTINE POLACRILEX 4 MG GUM BC PRN; P-EPHED 60MG/TRIPROLIDI 2.5MG TABLET PO PRN; guaiFENesin 200 MG/10 ML 10 ML UNIT-DOSE CUPS PO PRN
--- OUTSIDE RECORDS SUMMARY | 2020-07-28 14:32 | XMS ---
:1960 Author Organization [facility] Care Team Providers Name Role Phone Bryn De Leon Unavailable Alayna Anne Unavailable Vicky Hendrickson (R) Unavailable Cristian Metzger Unavailable NURSING, FM Unavailable Unavailable Antwon Unavailable JULAINA Unavailable Unavailable Behrouzi Unavailable Lona, (R) Unavailable Alton Unavailable Vinnie Unavailable Re-disclosure [...] is protected by Article 27-F of the [facility] Public Health law. If you continue you may haveaccess to information: Regarding HIV / AIDS; Provided by facilities licensed or operated by the [facility] Office of Mental Health; or Provided by the [facility] Office for People With Developmental Disabilities. If such information is present, then the following [facility] mandated warning applies: This information [...] law may result in a fine or residential sentence or both. A general authorization for the release of medical or other information is NOT sufficient authorization for further disclosure. Allergies and Adverse Reactions Type Description Substance Reaction Status Data Source(s ) SYSTEMIC NO KNOWN ALLERGIES NO KNOWN ALLERGIES The [facility] SYSTEMIC ALLERGIES NOT ON FILE ALLERGIES NOT ON The [facility] Encounters Encounter Providers Location Date Indications Data Source(s ) Outpatient Attender: Rob 06/30/2020 [facility] [place] [facility] 09:51:46 AM EDT Patient admitted. Outpatient Attender: Vicky 06/26/2020 11:16:35 AM The [facility] Patient admitted. Outpatient Attender: JACQUE ANDREWS 06/01/2020 02:02:36 PM The [facility] Patient admitted. Outpatient Attender: Rob 06/01/2020 01:17:53 PM The [facility] Patient admitted. Outpatient Attender: JACQUE ANDREWS 06/01/2020 11:56:13 AM [facility] Patient admitted. Outpatient Attender: JACQUE ANDREWS 04/28/2020 03:50:15 PM The [facility] Patient admitted. Outpatient Attender: Vicky 04/22/2020 03:55:12 PM The [facility] Patient admitted. Outpatient Attender: JACQUE ANDREWS 03/11/2020 02:08:46 PM The [facility] - 03/12/2020 01:05:33 [facility] PM EDT Patient admitted. Outpatient Attender: Alayna Anne 03/10/2020 04:59:07 PM The [facility] Patient admitted. Outpatient Attender: Rob 03/10/2020 09:06:01 AM The [facility] Patient admitted. Outpatient Attender: Vicky 02/27/2020 11:28:52 AM The [facility] Patient admitted. Outpatient Attender: JACQEU ANDREWS 02/26/2020 05:01:36 PM The [facility] Patient admitted. Outpatient Attender: JACQUE ANDREWS 02/19/2020 12:00:00 AM The [facility] - 02/19/2020 05:40:08 [facility] PM EDT Patient admitted. Outpatient Attender: Sowmya 02/12/2020 09:03:35 AM The [facility] Patient admitted. Outpatient Attender: JACQUE ANDREWS 02/12/2020 12:00:00 AM The [facility] - 02/12/2020 11:10:00 [facility] AM EDT Patient admitted. Outpatient Attender: Vicky 02/07/2020 08:24:02 AM The [facility] 02/07/2020 [facility] 12:08:31 PM EDT Patient admitted. Outpatient Attender: Vicky 02/05/2020 08:44:37 AM The [facility] 02/05/2020 [facility] 04:16:41 PM EDT Patient admitted. Outpatient Attender: JACQUE ANDREWS 02/05/2020 12:00:00 AM The [facility] - 02/05/2020 11:11:14 [facility] AM EDT Patient admitted. Outpatient Attender: Vicky 02/04/2020 01:31:46 PM The [facility] Patient admitted. Outpatient Attender: Pranav Kapoor 01/28/2020 08:24:29 AM EDT The [facility] 01/28/2020 10:09:32 AM Health EDT Patient admitted. Outpatient Attender: JACQUE ANDREWS 01/28/2020 12:00:00 AM The [facility] - 01/28/2020 12:10:56 [facility] EDT Patient admitted. Outpatient Attender: Karen 01/27/2020 03:16:52 PM The [facility] Patient admitted. Outpatient Attender: Dada Dang 01/16/2020 08:24:13 AM The [facility] 01/16/2020 [facility] 07:15:16 PM EDT Patient admitted. Outpatient Attender: Sowmya 12/17/2019 09:48:15 AM The [facility] Patient admitted. Outpatient Attender: Sowmya 11/20/2019 04:25:56 PM The [facility] Patient admitted. Outpatient Attender: JULIETTE 09/26/2019 01:22:45 PM The [facility] Patient admitted. Outpatient Attender: Sowmya 09/21/2019 09:54:17 AM The [facility] Patient admitted. Outpatient Attender: Tomasa Del Castillo 09/05/2019 01:26:37 PM The [facility] Patient admitted. Outpatient Attender: Tomasa Del Castillo 08/29/2019 05:15:18 PM The [facility] Patient admitted. Outpatient Attender: Tomasa Del Castillo 08/07/2019 12:35:29 PM The [facility] - 08/07/2019 [facility] 01:30:45 PM EDT Patient admitted. Outpatient Attender: Bryn 07/23/2019 03:38:40 PM The [facility] Patient admitted. Outpatient Attender: Bryn 07/12/2019 03:55:16 PM The [facility] - 07/19/2019 [facility] 01:13:04 PM EDT Patient admitted. Outpatient Attender: Tomasa Del Castillo 07/01/2019 01:15:41 PM The [facility] - 07/01/2019 [facility] 01:28:43 AM EDT Patient admitted. Outpatient Attender: Dada Dang 05/30/2019 11:36:41 AM The [facility] - 05/30/2019 [facility] 01:28:15 PM EDT Patient admitted. Immunizations Vaccine Date Status Description Data Source(s) Influenza, 06/27/2019 completed Influenza, 06/27/2019 The In stitute Injectable, Madin 12:00:00 AM EDT Injectable, Madin For Family [facility] Canine [place] Canine [facility] Kidney, Kidney, Quadrivalent Quadrivalent Medications Medication Brand Start Product Dose Route Administrative Pharmacy [facility] Indications Reaction Description Data Name Date Form Instructions Instructions Source(s) Glecaprevir [id number] Oral active Hep C w/o Ta ke 3 The -Pibrentasv 2019 {tbl} coma, tablets by [place] ir 100-40 12:00: chronic mouth amarilys y For Family MG Oral Tab 00 AM (HCC) Health EDT Hep C w/o coma, chronic (HCC) Aspirin aspirin 06/29/2020 81 Oral active Essential T gamaliel The 81 MG 81 MG 12:00:00 AM mg hypertension ONE [place] Delayed Oral EC EDT tablet For Fam tod Release tablet (81 mg Health Oral total) Tablet by aspirin mouth 81 MG daily Oral EC tablet Essential hypertension ALBUTEROL 1655-2801-11 06/29/2020 216 Inhalation active Mod erate Inhale The SULFATE 12:00:00 AM ug persistent TWO [place] (VENTOLIN EDT asthma puffs For Fam tod HFA) 108 without (216 Health (90 Base) complication mcg MCG/ACT total) Inhalation every Aero Soln 4-5 hours Moderate persistent asthma without compl ication Ketoconazole Ketoconazole 2 06/29/2020 active [place] a Apply The 20 MG/ML % Apply 12:00:00 AM crdiomedess twic e [place] Topical Cream externally EDT daily as For Family Ketoconazole 2 Cream needed to Health % Apply affected externally area Cream Tinea cruris gabapentin Gabapentin 06/29/2020 300 Oral active Schizoaffe ctive Take ONE The 300 MG Oral 300 MG Oral 12:00:00 AM mg disorder, capsule [place] Capsule Cap EDT bipolar type (300 mg F or Family Gabapentin (HCC) total) Health 300 MG Oral by mouth Cap 2 (two) times a day Schizoaffective disorder, bipolar type ( HCC) Lisinopril lisinopril 06/29/2020 20 Oral active Essential Take The 20 MG Oral 20 MG Oral 12:00:00 AM mg hypertensio n ONE [place] Tablet tablet EDT tablet For Famil y lisinopril (20 mg Health 20 MG Oral total) tablet by mouth daily Essential hypertension 60 ACTUAT Mometasone 06/29/2020 220 Inhalation active Mild asthma, Inhale The mometasone Furoate 220 12:00:00 AM ug unspecifie d ONE puff [place] furoate 0.2 MCG/INH EDT whether (220 mc [...] MG Oral 12:00:00 AM mg disorder, ONE [place] Tablet Tab EDT bipolar type tablet For Family Aripiprazole (HCC) (10 mg Heal th 10 MG Oral total) Tab by mouth daily Schizoaffective disorder, bipolar type ( HCC) PARoxetine [address]-7 06/01/2020 40 Oral active Schizoaf fective Take The HCl 40 MG 12:00:00 AM mg disorder, ONE [place] Oral Tab EDT bipolar type tablet F or Family (HCC) (40 mg Health total) by mouth daily Schizoaffective disorder, bipolar type ( HCC) gabapentin Gabapentin 06/01/2020 300 Oral aborted Schizoaff ective Take ONE The 300 MG Oral 300 MG Oral 12:00:00 AM mg disorder, capsule [place] Capsule Cap EDT bipolar type (300 mg F or Family Gabapentin (HCC) total) Health 300 MG Oral by mouth Cap 2 (two) times a day Schizoaffective disorder, bipolar type ( HCC) gabapentin Gabapentin 03/10/2020 300 Oral aborted Schizoaff ective Take ONE The 300 MG Oral 300 MG Oral 12:00:00 AM mg disorder, capsule [place] Capsule Cap EDT bipolar type (300 mg F or Family Gabapentin (HCC) total) Health 300 MG Oral by mouth Cap 2 (two) times a day Schizoaffective disorder, bipolar type ( HCC) Take ONE capsule (300 mg total) by mouth 2 (two) times a day PARoxetine [address]-1 03/10/2020 40 Oral aborted Schizoa ffective Take The HCl 40 MG 12:00:00 AM mg disorder, ONE [place] Oral Tab EDT bipolar type tablet F or Family (HCC) (40 mg Health total) by mouth daily Schizoaffective disorder, bipolar type ( HCC) Take ONE tablet (40 mg total) by mouth d daniel aripiprazole Aripiprazole 03/10/2020 10 Oral aborted Schiz oaffective Take The 10 MG Oral 10 MG Oral 12:00:00 AM mg disorder, ONE [place] Tablet Tab EDT bipolar type tablet For Family Aripiprazole (HCC) (10 mg Heal th 10 MG Oral total) Tab by mouth daily Schizoaffective disorder, bipolar type ( HCC) Take ONE tablet (10 mg total) by mouth d daniel NARCAN KIT 02/28/2020 active Preventive Administer 1 [...] MG 12:00:00 AM mg unspecif ied tablet [place] Tablet Oral Tab EDT hyperlipidemia (10 mg For Family Atorvastatin type total) Healt h Calcium 10 MG by mouth Oral Tab nightly Hyperlipidemia, unspecified hyperlipidem ia type Take ONE tablet (10 mg total) by mouth n ightly Lisinopril lisinopril 02/05/2020 20 Oral aborted Essential Take The 20 MG Oral 20 MG Oral 12:00:00 AM mg hypertensio n ONE [place] Tablet tablet EDT tablet For Famil y lisinopril (20 mg Health 20 MG Oral total) tablet by mouth daily Essential hypertension Take ONE tablet (20 mg total) by mouth renetta sanchez Aspirin aspirin 02/05/2020 81 Oral aborted Essential Take The 81 MG 81 MG 12:00:00 AM mg hypertension ONE [place] Delayed Oral EC EDT tablet For Fam tod Release tablet (81 mg Health Oral total) Tablet by aspirin mouth 81 MG daily Oral EC tablet Essential hypertension Take ONE tablet (81 mg total) by mouth renetta sanchez ALBUTEROL 7621-4399-61 02/05/2020 216 Inhalation aborted Mo derate Inhale The SULFATE 12:00:00 AM ug persistent TWO [place] (VENTOLIN EDT asthma puffs For Fam tod HFA) 108 without (216 Health (90 Base) complication mcg MCG/ACT total) Inhalation every Aero Soln 4-5 hours Moderate persistent asthma without compl ication Inhale TWO puffs (216 mcg total) every 4 -5 hours PARoxetine [address]-2 01/16/2020 40 Oral completed Schiz oaffective Take The HCl 40 MG 12:00:00 AM mg disorder, ONE [place] Oral Tab EDT bipolar type tablet F or Family (HCC) (40 mg Health total) by mouth daily Schizoaffective disorder, bipolar type ( HCC) Take ONE tablet (40 mg total) by mouth d aily gabapentin Gabapentin 12/17/2019 300 Oral completed S chizoaffective Take ONE The 300 MG Oral 300 MG Oral 12:00:00 AM mg disorder, capsule [place] Capsule Cap EST bipolar type (300 mg [...] 12:00:00 AM ug unspecifie d ONE puff [place] furoate 0.2 MCG/INH EST whether (220 mc [...] 12:00:00 AM ug unspecifie d ONE puff [place] furoate 0.2 MCG/INH EST whether (220 mc [...] 12:00:00 AM mg persistent ( 2.5 mg [place] Inhalant MG/3ML) EDT asthma total) via For [...] for shortness of breath or cough Respiratory [id number] 07/12/2019 active Moderate Use with The Therapy 12:00:00 AM persistent albu terol [place] Supplies EDT asthma solution For F amily (NEBULIZER without every 4-6 H ealth COMPRESSOR) complication hours as Does not needed apply Kit Moderate persistent asthma without compl ication Use with albuterol solution every 4-6 ho urs as needed Nutritional [id number] 07/12/2019 1 Oral active Unintent ional Take 1 The Supplements 12:00:00 AM {can} weight loss Can by [place] (ENSURE EDT mouth For Family COMPLETE) 2 Health Oral Liquid (two) times a day Unintentional weight loss Take 1 Can by mouth 2 (two) times a day atorvastatin Atorvastatin 07/12/2019 10 Oral complet ed Hyperlipidemia, Take ONE The 10 MG Oral Calcium 10 MG 12:00:00 AM mg unspecif ied tablet [place] Tablet Oral Tab EDT hyperlipidemia (10 mg For Family Atorvastatin type total) Healt h Calcium 10 MG by mouth Oral Tab nightly Hyperlipidemia, unspecified hyperlipidem ia type Take ONE tablet (10 mg total) by mouth n ightly 120 ACTUAT Fluticasone 07/12/2019 110 Inhalation completed Moderate Inhale The Fluticasone Propionate 12:00:00 AM ug persistent ONE [place] propionate HFA (FLOVENT EDT asthma puff For Family 0.11 HFA) 110 without (110 Health MG/ACTUAT MCG/ACT complication mcg Metered Dose Inhalation total) Inhaler Aerosol 2 (two) Fluticasone times a Propionate day HFA (FLOVENT HFA) 110 MCG/ACT Inhalation Aerosol Moderate persistent asthma without compl ication Inhale ONE puff (110 mcg total) 2 (two) times a day ALBUTEROL [id number] 07/12/2019 216 Inhalation completed Moderat e Inhale The SULFATE 12:00:00 AM ug persistent TWO [place] (VENTOLIN EDT asthma puffs For Fam tod HFA) 108 without (216 Health (90 Base) complication mcg MCG/ACT total) Inhalation every Aero Soln 4-5 hours Moderate persistent asthma without compl ication Inhale TWO puffs (216 mcg total) every 4 -5 hours Aspirin aspirin 07/12/2019 81 Oral completed Essential Take The 81 MG 81 MG 12:00:00 AM mg hypertension ONE [place] Delayed Oral EC EDT tablet For Fam tod Release tablet (81 mg Health Oral total) Tablet by aspirin mouth 81 MG daily Oral EC tablet Essential hypertension Take ONE tablet (81 mg total) by mouth d aily Clotrimazole clotrimazole 1 07/12/2019 completed P aronychia Apply to The 10 MG/ML % Apply 12:00:00 AM of right af fected [place] Topical Cream externally EDT middle are twice For Family clotrimazole 1 cream finger daily H ealth % Apply externally cream Paronychia of right middle finger Apply to affected are twice daily Lisinopril lisinopril 07/12/2019 20 Oral completed Essenti al Take The 20 MG Oral 20 MG Oral 12:00:00 AM mg hypertensio n ONE [place] Tablet tablet EDT tablet For Famil y lisinopril (20 mg Health 20 MG Oral total) tablet by mouth daily Essential hypertension Take ONE tablet (20 mg total) by mouth d aily gabapentin Gabapentin 07/12/2019 300 Oral completed S chizoaffective Take ONE The 300 MG Oral 300 MG Oral 12:00:00 AM mg disorder, capsule [place] Capsule Cap EDT bipolar type (300 mg F or Family Gabapentin (HCC) total) Health 300 MG Oral by mouth Cap 2 (two) times a day Schizoaffective disorder, bipolar type ( HCC) Take ONE capsule (300 mg total) by mouth 2 (two) times a day PARoxetine [address]-5 07/01/2019 40 Oral completed Schiz oaffective Take The HCl 40 MG 12:00:00 AM mg disorder, ONE [place] Oral Tab EDT bipolar type tablet F or Family (HCC) (40 mg Health total) by mouth daily Schizoaffective disorder, bipolar type ( HCC) Take ONE tablet (40 mg total) by mouth d aily aripiprazole Aripiprazole 07/01/2019 10 Oral aborted Schiz oaffective Take The 10 MG Oral (ABILIFY) 10 12:00:00 AM mg disorder, ONE [place] Tablet MG Oral Tab EDT bipolar type tab let For Family Aripiprazole (HCC) (10 mg Heal th (ABILIFY) 10 total) MG Oral Tab by mouth daily Schizoaffective disorder, bipolar type ( HCC) FLUCELVAX 88517-971-95 06/27/2019 active DIRECTED The QUADRIVALENT 12:00:00 AM INTRA MUSCULARLY [place] Intramuscular EDT For Fa edmund [facility] DIRECTED INTRAMUSCULARLY lidocaine 4200-6740-33 05/30/2019 25 Subcutaneous complete d Paronychia The (XYLOCAINE) 01:30:00 PM mg of right [place] 1 % EDT middle For Family injection finger Health Paronychia of right middle finger Clotrimazole clotrimazole 1 05/30/2019 aborted Par onychia Apply to The 10 MG/ML % Apply 12:00:00 AM of right af fected [place] Topical Cream externally EDT middle are twice For Family clotrimazole 1 cream finger daily H ealth % Apply externally cream Paronychia of right middle finger Sulfamethoxazole 800 MG / Sulfamethoxazole-Trimethoprim 05/30/2019 1 Oral active Paronychia Take The Trimethoprim 160 MG Oral (BACTRIM DS) 800-160 MG Oral 12:00:00 AM {tbl} of right ONE [place] Tablet Tab EDT middle tablet For Famil y Sulfamethoxazole-Trimethoprim [facility] (BACTRIM DS) 800-160 MG Oral mouth 2 Tab (two) times a day for 10 days for 10 days Paronychia of right middle finger aripiprazole Aripiprazole 02/25/2019 10 Oral aborted Schiz oaffective Take The 10 MG Oral (ABILIFY) 10 12:00:00 AM mg disorder, ONE [place] Tablet MG Oral Tab EDT bipolar type tab let For Family Aripiprazole (HCC) (10 mg Heal th (ABILIFY) 10 total) MG Oral Tab by mouth daily Schizoaffective disorder, bipolar type ( HCC) PARoxetine [address]-0 02/25/2019 40 Oral aborted Schizoa ffective Take The HCl 40 MG 12:00:00 AM mg disorder, ONE [place] Oral Tab EDT bipolar type tablet F or Family (HCC) (40 mg Health total) by mouth daily Schizoaffective disorder, bipolar type ( HCC) ALBUTEROL 07703 02/05/2019 216 Inhalation aborted Moderate Inhale TWO The SULFATE 108 12:00:00 AM ug persistent puffs (216 [place] (90 Base) EDT asthma mcg total) Fo r Family MCG/ACT without every 4-6 Heal th Inhalation complication (four- six) Aero Soln hours as needed Moderate persistent asthma without compl ication 120 ACTUAT Fluticasone 02/05/2019 110 Inhalation aborted Mo derate Inhale The Fluticasone Propionate 12:00:00 AM ug persistent ONE [place] propionate HFA (FLOVENT EDT asthma puff For [...] MG 12:00:00 AM mg unspecif ied tablet [place] Tablet Oral Tab EDT hyperlipidemia (10 mg For Family Atorvastatin type total) Healt h Calcium 10 MG by mouth Oral Tab nightly Hyperlipidemia, unspecified hyperlipidem ia type Nystatin 100 Nystatin 02/05/2019 completed Tinea p laura, Apply to The UNT/MG [id number] 12:00:00 AM unspecified af fected [place] Topical UNIT/GM EDT laterality area For Family Powder Apply twice Health Nystatin externally daily [id number] Powder UNIT/GM Apply externally Powder Tinea pedis, unspecified laterality Apply to affected area twice daily Lisinopril lisinopril 02/05/2019 20 Oral aborted Essential Take The 20 MG Oral 20 MG Oral 12:00:00 AM mg hypertensio n ONE [place] Tablet tablet EDT tablet For Famil y lisinopril (20 mg Health 20 MG Oral total) tablet by mouth daily Essential hypertension Aspirin aspirin 02/05/2019 81 Oral aborted Essential Take The 81 MG 81 MG 12:00:00 AM mg hypertension ONE [place] Delayed Oral EC EDT tablet For Fam tod Release tablet (81 mg Health Oral total) Tablet by aspirin mouth 81 MG daily Oral EC tablet Essential hypertension Insurance Providers Payer name Policy type Policy ID Covered Covered republican's Policy P marisa / Coverage republican ID relationship to [place] [employer] ormation type [place] [employer] [id number] H [place]ICAID [place] [id number] Self [id number] [place] [id number] Self [id number] [employer] [id number] Self [id number] [employer] [id number] Self [id number] [employer] HARP [id number] [place]ICAID [place] Medicaid 125 125 MEDICAID [place] Medicaid 125 125 [employer] HAR [id number] Problems, Conditions, and Diagnoses Code Display Name Description Problem Type Effective Data Dates Source(s) F11.21 Opioid use Opioid use [id number] 02/05/2020 The [place] disorder, moderate, disorder, moderate, 12:00:0 0 AM For Family in early remission, in early remission, EDT Health on maintenance on maintenance therapy therapy B18.2 Hep C w/o coma, Hep C w/o coma, [id number] 02/05/2020 The [place] chronic chronic 12:00:00 AM For Family EDT Health R74.0 Transaminitis Transaminitis [id number] 09/23/2019 [facility] 12:00:00 AM For Family EST Health B35.6 Tinea cruris Tinea cruris Diagnosis 06/26/2020 The [facility] la posta 11:16:35 AM For Family EDT Health Transfer Note Transfer Note Diagnosis 06/01/2020 The [facility] 02:02:36 PM For Family EDT Health Missed Appointment Missed Appointment Diagnosis 0 The [place] 03:50:15 PM For Family EDT Health B18.2 Chronic viral Chronic viral Diagnosis 04/23/2020 The [facility] hepatitis C hepatitis C 02:37:43 PM For Family EDT Health M54.30 Sciatica, Sciatica, Diagnosis 02/27/2020 The [place] unspecified side unspecified side 11:28:52 AM F or Family EDT Health Z29.9 Encounter for Encounter for Diagnosis 02/27/2020 The [facility] prophylactic prophylactic 11:28:52 AM For Famil y measures, measures, EDT Health unspecified unspecified F11.20 Opioid dependence, Opioid dependence, Diagnosis 0 The [place] uncomplicated uncomplicated 11:28:52 AM For [facility] EDT Health Enrollment Enrollment Diagnosis 02/19/2020 The [place] 11:40:37 AM For Family EDT Health Schizoaffective Schizoaffective Diagnosis 02/19/2020 The [place] Disorder Disorder 11:40:37 AM For Family EDT Health Virtual Visit Virtual Visit Diagnosis 02/19/2020 The [facility] (Telephone Only) (Telephone Only) 11:40:37 AM F or Family EDT Health Request For Appt Request For Appt Diagnosis 02/12/2020 Th e [place] 09:03:35 AM For Family EDT Health R35.0 Frequency of Frequency of Diagnosis 02/07/2020 The [facility] la posta micturition micturition 08:24:02 AM For Family EDT Health Z12.11 Encounter for Encounter for Diagnosis 02/07/2020 The [facility] itla posta screening for screening for 08:24:02 AM For Fam tod malignant neoplasm malignant neoplasm EDT Health of colon of colon R10.32 Left lower quadrant Left lower quadrant Diagnosis 020 The [place] pain pain 08:24:02 AM For Family EDT Health Physical Physical Diagnosis 02/07/2020 The [place] 08:24:02 AM For Family EDT Health F11.21 Opioid dependence, Opioid dependence, Diagnosis 0 The [place] in remission in remission 03:39:34 PM For Famil y EDT Health E78.5 Hyperlipidemia, Hyperlipidemia, Diagnosis 02/05/2020 The [place] unspecified unspecified 08:44:37 AM For Family EDT Health M10.00 Idiopathic gout, Idiopathic gout, Diagnosis 02/05/2020 Th e [place] unspecified site unspecified site 08:44:37 AM F or Family EDT Health N48.9 Disorder of penis, Disorder of penis, Diagnosis 0 The [place] unspecified unspecified 08:44:37 AM For Family EDT Health F17.200 Nicotine Nicotine Diagnosis 02/05/2020 The [place] dependence, dependence, 08:44:37 AM For Family unspecified, unspecified, EDT Health uncomplicated uncomplicated M54.32 Sciatica, left side Sciatica, left side Diagnosis 020 The [place] 08:44:37 AM For Family EDT Health M54.31 Sciatica, right Sciatica, right Diagnosis 02/05/2020 The [place] side side 08:44:37 AM For Family EDT Health Z71.89 Other specified Other specified Diagnosis 02/05/2020 The [place] counseling counseling 08:44:37 AM For Family EDT Health Other Other Diagnosis 02/04/2020 The [place] 01:31:46 PM For Family EDT Health Z71.3 Dietary counseling Dietary counseling Diagnosis 0 The [place] and surveillance and surveillance 08:24:29 AM F or Family EDT Health Z68.22 Body mass index Body mass index Diagnosis 01/28/2020 The [place] (BMI) 22.0-22.9, (BMI) 22.0-22.9, 08:24:29 AM F or Family adult adult EDT Health R63.3 Feeding Feeding Diagnosis 01/28/2020 The [place] difficulties difficulties 08:24:29 AM For Famil y EDT Health Outreach Outreach Diagnosis 01/27/2020 The [place] 03:16:52 PM For Family EDT Health Results Results Diagnosis 09/26/2019 The [place] 01:22:45 PM For Family EST Health Refill Follow-up Refill Follow-up Diagnosis 09/26/2019 Th e [place] 01:22:45 PM For Family EST [facility] R74.0 Nonspecific Nonspecific Diagnosis 09/23/2019 [facility] elevation of levels elevation of levels 03:08:3 0 PM For Family of transaminase and of transaminase and EST [facility] lactic acid lactic acid dehydrogenase [LDH] dehydrogenase (ldh) R63.4 Abnormal weight Abnormal weight Diagnosis 09/21/2019 The [place] loss loss 09:54:17 AM For Family EST Health Z23 Encounter for Encounter for Diagnosis 09/21/2019 [facility] itute immunization immunization 09:54:17 AM For Famil y EST Health Follow-up for: Follow-up for: Diagnosis 09/21/2019 The In stitute 09:54:17 AM For Family EST Health Discharge Discharge Diagnosis 09/05/2019 The [place] 01:26:37 PM For Family EST Health Z12.2 Encounter for Encounter for Diagnosis 07/12/2019 [facility] itute screening for screening for 03:55:16 PM For Fam tod malignant neoplasm malignant neoplasm EDT Health of respiratory of respiratory organs organs L03.011 Cellulitis of right Cellulitis of right Diagnosis 019 The [place] finger finger 03:55:16 PM For Family EDT Health Needs Letter Needs Letter Diagnosis 07/12/2019 The [facility] la posta 03:55:16 PM For Family EDT Health Surgeries/Procedures Procedure Description Date Indications Data Source(s) CBC WITH CBC WITH Routine 02/07/2020 Hep C 02/07/2020 Hep C The DIFFERENTIAL DIFFERENTIAL 9:16 AM EDT w/o 09:16:00 A M w/o [place] AND PLATELETS AND PLATELETS coma, EDT coma , For Family chronic chronic Health (HCC) (HCC) Hep C w/o coma, chronic (HCC) HEP A HEP A Routine 02/07/2020 Hep C w/o 02/07/2020 Hep C w/ o The AB.,TOTAL AB.,TOTAL 9:16 AM EDT coma, 09:16:00 AM coma , [place] W/ REFLEX W/ REFLEX chronic EDT chronic For Family (HCC) (HCC) Health Hep C w/o coma, chronic (HCC) 4TH GEN HIV 4TH GEN HIV Routine 02/07/2020 Hep C w/o 02/07/2020 Hep C The TEST-IFH TEST-IFH 9:16 AM EDT coma, 09:16:00 AM w/o [place] RECOMMENDED RECOMMENDED chronic EDT coma, For Family (HCC) chronic Health (HCC) Hep C w/o coma, chronic (HCC) HEP B HEP B Routine 02/07/2020 Hep C w/o 02/07/2020 Hep C w/ o The CORE AB, CORE AB, 9:16 AM EDT coma, 09:16:00 AM coma, [place] IGG IGG chronic EDT chronic For Fami ly (HCC) (HCC) Health Hep C w/o coma, chronic (HCC) URINALYSIS URINALYSIS Routine 02/07/2020 Left lower 02/07/2020 L eft lower The (COMPLETE) (COMPLETE) 9:16 AM EDT quadrant 09:16:00 AM q [facility] abdominal EDT abdominal For Family pain pain Health Left lower quadrant abdominal pain COMP COMP Routine 02/07/2020 Hep C w/o 02/07/2020 Hep C w/ o The METABOLIC METABOLIC 9:16 AM EDT coma, 09:16:00 AM coma , [place] PANEL PANEL chronic EDT chronic For Fami ly (HCC) (HCC) Health Hep C w/o coma, chronic (HCC) HGA1C (HGB HGA1C (HGB Routine 02/07/2020 Urinary 02/07/2020 Urin melanie The GLYCOSYLATED) GLYCOSYLATED) 9:16 AM EDT frequency 09:16: 00 AM frequency [place] EDT For Fami ly Health Urinary frequency PROTHROMBIN PROTHROMBIN Routine 02/07/2020 Hep C w/o 02/07/2020 Hep C The TIME WITH INR TIME WITH INR 9:16 AM EDT coma, 09:16:00 AM w/o [place] chronic EDT coma, For Fami ly (HCC) chronic Health (HCC) Hep C w/o coma, chronic (HCC) TDAP TDAP Routine 09/21/2019 Need for prophylactic 019 Need for prophylactic The VACCINE VACCINE 11:07 AM vaccination with combined 11:07 :06 AM vaccination with combined [place] 7/> YR SQ IMM EST fzumsurcjk-oyfqvfg-trlhlqwmr EST yjkhlikapv-kdkalcj-mjwwedvoh For Family IM CLINIC (DTP) vaccine (DTP) vacc ine Health Need for prophylactic vaccination with c ombined gpvgejvnvc-mzsolhg-sffgcnecg (DTP) vaccine COMP COMP Routine 09/21/2019 Weight 09/21/2019 Weight Th e METABOLIC METABOLIC 11:06 AM EST loss 11:06:00 AM los s [place] PANEL PANEL EST For Fami ly Health Weight loss CBC WITH CBC WITH Routine 09/21/2019 Weight 09/21/2019 Weight The DIFFERENTIAL DIFFERENTIAL 11:06 AM EST loss 11:06:00 AM loss [place] AND PLATELETS AND PLATELETS EST For Family Health Weight loss HGA1C (HGB HGA1C (HGB Routine 09/21/2019 Weight 09/21/2019 Weig ht The GLYCOSYLATED) GLYCOSYLATED) 11:06 AM loss 11:06:00 AM loss [place] EST EST For Famave ly Health Weight loss LIPID LIPID Routine 09/21/2019 Weight 09/21/2019 Weight Th e PANEL PANEL 11:06 AM EST loss 11:06:00 AM loss [place] EST For Fami ly Health Weight loss Results ID Date Data Source [id number] 07/23/2020 10:15:00 AM EDT [facility] Name Value Range Interpretation Description Data Sup porting Code Source(s) Document(s ) SARS [facility] coronavirus 2 RNA This lab was ordered by [facility] Daya Moya and reported by [facility]. ID Date Data Source [id number] 02/07/2020 12:08:33 PM EDT The [facility] Reason for Visit and Comments: Paige lugo [83]Vitals (Last Filed):BP 151/91 (Orthostatic Site : Arm - Left, Orthostatic Pos- ition : Sitting, Orthostatic Cuff Size : Large Adult) P- ulse 72 Temp 98.8 F (37.1 C) (Oral) Ht 5 7" (1.702- m) Wt 157 lb (71.2 kg) BMI 24.59 kg/g3DbowzmKacy Meier 02/07/2020 12:08 PM SignedI have identified [...] old male with history ofPatient Active P Concert Window List Diagnosis Date Noted? Hep C w/o [...] Is followed by pain man agement in [place]- is given Percocet.? Asthma 07/01/2014 Moderate persistent. [...] lower quadrant abdominal painPatient to present for abd US today- CULTURE, URINE; Future- URINALYSIS (COMPLETE); [...] PCR, QUANTFu ture AppointmentsDate Time Provider Department [place]02/12/2020 10:45 AM [facility] [place]/24/2020 9:40 AM Rob Metzger, PMHNP FPPSYCH [place]02/28/2020 8:45 AM Vicky Hendrickson MD [facility]03/11/2020 3:00 PM Vicky Hendrickson MD [facility] LILIBETHYaron Hu Diagnosis:R10.32 Left lower quadrant abdominal pain Other [...] by: Dada Dang PA - ReviewedLevel of Service:19070 OFFIC /OUTPT VISIT E&M EST LOW-MOD SEVER* [...] y of intranasal drug abuse [place] house: [phone] x [phone]; social services manager neyda Krishnan ent s cell phone: [phone] 02/05/2019 Lives in shared apartment as of nov 2018, previou s to that was homeless.Social History Topics Tobacco Use: Yes Cigarettes (Packs/Day ): .5 Alcohol Use: Yes 2 oz/week 4 drinks per week Comment: patient reports dri breannaing 4 small "nips" bottles Drug Use: Yes Frequency: 5 per week Types: Mar anup Sexually Active: NeverImmunizations Administered Influenza, In terrakayleeElbert andersonby* 06/27/2019 Influenza, Seasonal, Injectable 08/03/2016 0 07/06/2017 Pneumococcal polysaccharide vaccin* 07/01/2014 influenza, injectable, quadr ivalen* 08/27/2018 Name Value Range Interpretation Code Description Data Tessa rce(s) Supporting Document(s ) ID Date Data Source [id number] 02/13/2020 11:41:00 AM EDT The [facility] Name Value Range Interpretation Description Data Sup porting Code Source(s) Document(s ) OCCULT BLOOD NEGATIVE NEGATIVE The IMMUNOCHEM [facility] ID Date Data Source [id number] 02/12/2020 04:52:00 PM EDT The [facility] Name Value Range Interpretation Description Data Sup porting Code Source(s) Document(s ) HEPATITIS C Type 3 See Below The GENOTYPE [facility] NOTE: Hepatitis C Virus Genotype/Subtype assay is an FDA approved assay able to identify the following subtypes: 1a , 1b, 1, 2, 3, 4, 5, 6. ASSAY INFORMATION: Test# 2161 (Hepatitis C Genotype) perfor med using Siemens Versant(R) HCV Genotype 2.0 Assay (LiPA) . ID Date Data Source [id number] 02/11/2020 01:37:00 PM EDT The [facility] Name Value Range Interpretation Description Data Sup porting Code Source(s) Document(s ) BILIRUBIN, TOTAL 0.4 mg/dL <1.2 The [facility] G-GTP 20 U/L 10-71 The [facility] ALT (SGPT) 42 U/L <41 Above high The normal [facility] APOLIPOPROTEIN 164 mg/dL 104-202 The A1 [facility] HAPTOGLOBIN 138 mg/dL 30-200 The [facility] DUTHE-3-CXJGTIIL 248 mg/dL 130-300 The BULIN [facility] FIBROSIS SCORE 0.24 NA The [facility] FIBROSIS STAGE F0-F1 The [facility] FIBROSIS INTERP no The fibrosis [facility] NECROINFLAMMAT 0.22 NA The ACTIVITY SCORE [facility] NECROINFLAMMAT A0-A1 The ACTIVITY GRADE [facility] NECROINFLAMMAT no The INTERP activity [facility] FIBROSIS AND NECROINFLAMMATION SCORES AND INTERPR ETATIONS FibroTest Score Metavir Score0.00-0.21 F0 no fibrosis0.22-0.27 F0-F10.28-0.31 F1 minimal fibrosis0.32-0.48 F1-F20.49-0.58 F2 moderate fibrosis0.59-0.72 F3 advanced fibrosis0.73-0.74 F3-F40.75-1.00 F4 severe fibrosis ActiTest Score Metavir Score0.00-0.17 A0 no activity0.18-0.29 A0-A10.30-0.36 A1 min imal activity0.37-0.52 A1-A20.53-0.60 A2 significant activity0.61-0.62 A2-A30.63-1.00 A3 severe activity Performed By: [facility] [employer] [address] P: [phone] Precautions:The reliability of results is dependent on compliance with the preanal ytical and analytical conditions recommendedby [employer] Securityredictive.The tests have to be deferred for: acute [...] Hepatitis B and C. References: 1. Mi SPRINGER, et al. FibroTest Fibrosure f or Significant Liver Fibrosis and Cirrhosis in Chronic Hepatitis B: A [place]-Analysis. Am J Gastroenterol 2014; 109:796-809. 2. Shay Granado, et al. The impact of liver disease aetiology and the stages of hepatic fibrosis on the performance of non invasive fibrosis markers: an international study of 2411 cases. Aliment Pharmacol Ther 2011 ;34:1934-2493. ID Date Data Source [id number] 02/10/2020 01:56:00 PM EDT The [facility] Name Value Range Interpretation Code Description Data Tessa rce(s) Supporting Document(s ) HEP 12647 <15 Above high normal [facility] C,RNA,IU IU/mL For [facility] HEP C ULTRAQUANT, RNA INTERPRETATION HEP-C (IU/mL) [...] 4.95 log-10 <1.18 Above high normal The [facility] ID Date Data Source [id number] 02/09/2020 11:29:00 AM EDT The [facility] Name Value Range Interpretation Description Data Sup porting Code Source(s) Document(s ) CULTURE, NO GROWTH NO GROWTH The URINE [facility] SITE: URINE ID Date Data Source [id number] 02/08/2020 11:20:00 AM EDT The [facility] Name Value Range Interpretation Code Description Data [...] in some patients. ID Date Data Source [id number] 02/08/2020 11:20:00 AM EDT The [facility] Name Value Range Interpretation Description Data Sup porting Code Source(s) Document(s ) HEPATITIS A Non-React Non-Reac The ANTIBODY maya tive [facility] ID Date Data Source [id number] 02/08/2020 11:20:00 AM EDT The [facility] Name Value Range Interpretation Description Data Sup porting Code Source(s) Document(s ) HIV 1/2 Non-React Non-React The [place] AB, EIA maya [facility] Assay Information: Assay for the detecti on of HIV p24 antigen and antibodies to Human Immunodeficiency Virus Type 1,including Group O (HIV-1 + "O") and/or T ype 2 (HIV-2) Method: Chemiluminescence (Compact Particle Acceleration) ID Date Data Source [id number] 02/08/2020 05:46:00 AM EDT The [facility] Name Value Range Interpretation Description Data Sup porting Code Source(s) Document(s ) PROTEIN, 7.2 g/dL 5.9-8.4 The TOTAL, SERUM [facility] ALBUMIN 4.2 g/dL 3.5-5.2 The [facility] GLOBULIN, 3.0 g/dL 1.7-3.7 The TOTAL [facility] A/G RATIO 1.4 1.1-2.9 The Ratio [facility] SODIUM 140 135-147 The mmol/L [facility] POTASSIUM 4.4 3.5-5.5 The mmol/L [facility] CHLORIDE 103 96-108 The mmol/L [facility] CARBON DIOXIDE 23 22-29 The mmol/L [facility] UREA NITROGEN 14 mg/dL 6-20 The (BUN) [facility] CREATININE 0.96 0.67-1.3 The mg/dL 1 [facility] EGFR 87 >or=60 The mL/min [facility] EGFR 101 >or=60 The [place] mL/min [facility] BUN/CREATININE 14.6 NA 10.0-28. The RATIO 0 [facility] CALCIUM 9.5 8.6-10.4 The mg/dL [facility] BILIRUBIN, 0.4 <1.2 The TOTAL mg/dL [facility] ALKALINE 74 U/L 40-156 The PHOSPHATASE [facility] AST (SGOT) 44 U/L <40 Above high normal The [facility] ALT (SGPT) 42 U/L <41 Above high normal The [facility] GLUCOSE 109 70-99 Above high normal The mg/dL [facility] ID Date Data Source [id number] 02/08/2020 05:14:00 AM EDT The [facility] Name Value Range Interpretation Description Data Sup porting Code Source(s) Document(s ) HEMOGLOBIN A1C 5.5 % <5.7 The [facility] HEMOGLOBIN A1c AND eAG REFERENCE RANGES A1c(%) DIABETES CATEGORY* <5.7 Normal (non-diabetic) 5.7-6.4 Increased ri sk of diabetes =>6.5 Consistent with diabetes A1c(%) eAG(ESTIMATED AVERAGE PLASMA GLUCOSE)(mg/dL) 6 126 7 154 8 183 9 212 10 240 11 269 12 298 *recom mended ranges-[place] Diabetes Association(2010) NOTE: The amount of gl ycated hemoglobin as measured by the HbA1c test may be overestimated in [place] and should not be used as the sole parameter of glycemic burden. Similarly, hemolysis, genetic hemoglobin variants and chemically modified hemoglo bin derivatives (as seen in renal failure, smoking, aspirin use) may also affect glycated hemoglobin levels. ID Date Data Source [id number] 02/08/2020 02:56:00 AM EDT The [facility] Name Value Range Interpretation Description Data Sup porting Code Source(s) Document(s ) PROTIME 10.3 sec 9.1-11.9 The [facility] INTR. NORM. 0.92 NA 0.80-1.07 The RATIO(INR) [facility] CLINICAL INDICATIONS FOR INR USE Reference RangeProphylaxis or treatment of venous thrombosis, 2.00-3.00systemic embolization, and pulm onary embolus High-risk patients with mechanical heart valves 2.50-3.50 Normal Non-Medicated Patients 0.80-1.07 NOTE: INR values be low 2.00 for patients on warfarin therapy would be considered sub-therapeu tic for the above conditions. ID Date Data Source [id number] 02/08/2020 02:53:00 AM EDT [facility] Name Value Range Interpretation Description Data Sup porting Code Source(s) Document(s ) SPECIFIC 1.006 NA 1.003-1.03 The GRAVITY, UR 0 [place] ([facility] PH, UR 5.5 NA 5.0-8.0 The [facility] PROTEIN, NEGATIVE NEGATIVE The TOTAL, RANDOM [place] URINE [facility] GLUCOSE, NEGATIVE NEGATIVE The URINE, QUAL. [facility] KETONE, QUAL. NEGATIVE NEGATIVE The [facility] UROBILINOGEN 0.2 mg/dL 0.2-1.0 The [facility] BILIRUBIN, NEGATIVE NEGATIVE The URINE [facility] BLOOD, URINE NEGATIVE NEGATIVE The [facility] NITRITE, UR NEGATIVE NEGATIVE The (NI) [facility] CRYSTALS NONE NONE The [facility] WBC, URINE 0-4 /[HPF] 0-4 The [facility] RBC, URINE NONE SEEN NONE SEEN The /[HPF] [facility] CAST, RBC, NONE SEEN 0-1 The URINE /[LPF] [facility] CAST, HYALINE, 0-4 /[LPF] 0-4 The URINE [facility] CAST, NONE NONE-FEW The EPITHELIAL, [place] URINE [facility] CAST, NONE SEEN 0-1 The GRANULAR, /[LPF] [place] URINE [facility] BACTERIA, NONE NONE-FEW The URINE [facility] CRYSTALS, NONE NONE The OTHER, URINE /[HPF] [facility] LEUKOCYTE NEGATIVE NEGATIVE The ESTERASE [facility] COLOR YELLOW YELLOW, [facility] CHARACTER CLEAR CLEAR The [facility] ID Date Data Source [id number] 02/08/2020 02:32:00 AM EDT [facility] Name Value Range Interpretation Description Data Sup porting Code Source(s) Document(s ) WHITE BLOOD 7.51 3.66-10. The CELL (WBC) x10(3)/u 60 [place] COUNT L [facility] RED BLOOD CELL 4.64 3.94-5.7 The (RBC) COUNT x10(6)/u 6 [place] L [facility] HEMOGLOBIN 13.8 12.0-16. The g/dL 9 [facility] HEMATOCRIT 40.6 % 34.6-49. The 6 [facility] MCV 87.5 fL 78.0-98. The 0 [facility] MCH 29.7 pg 25.8-33. The 1 [facility] MCHC 34.0 31.7-35. The g/dL [address] [place] [address] RDW 12.8 % 12.2-15. The 3 [facility] POLYS 57.9 % 34.9-75. The 3 [facility] POLYS, ABS. 4.36 1.30-7.0 The COUNT x10(3)/u 0 [place] L [facility] LYMPHOCYTES 30.8 % 14.0-51. The 8 [facility] LYMPHS, ABS. 2.31 0.80-3.0 The COUNT x10(3)/u 0 [place] L [facility] MONOCYTES 8.0 % 3.5-13.2 The [facility] MONOS, ABS. 0.60 0.00-1.0 The COUNT x10(3)/u 0 [place] L [facility] EOSINOPHILS 2.3 % 0.0-6.2 The [facility] EOS, ABS. COUNT 0.17 0.00-0.4 The x10(3)/u 0 [place] L [facility] BASOPHILS 0.7 % 0.0-1.0 The [facility] BASOS, ABS. 0.05 0.00-0.1 The COUNT x10(3)/u 0 [place] L [facility] IMMATURE 0.3 % 0.0-1.0 The [facility]3] PLATELETS 264 140-425 The x10(3)/u [place] L [facility] MPV 10.2 fL 8.6-12.1 The [facility] ID Date Data Source [id number] 09/27/2019 01:09:08 PM EST The [facility] Reason for Visit and Comments: Refill Follow-up [226] - for allopurinal Results [95] - to bring to foot doctor as oer pt Left W ithout Being seen [220]Tai Farah MA 09/27/2019 1:09 PM SignedI have identified this barbara virk to be HAZEL Daigle -1960.Patient stated that he spoke with Dr. Ruben philip about a new prescription.Needed to see a doctor for the new prescription but patient stated that hecould stay and wait to be seen and would like to come back in the ,[place].Pat ient left with-out being seenEshaukaitlynnlori Farah, IDALMISatient left prior to being seen.Primary Diagnos is:[id number] LEFT WITHOUT BEING SEENPrescriptions as of 09/27/2019 [...] y of intranasal drug abuse [place] house: [phone] x [phone]; social services manager neyda castellanos s cell phone: [phone] 02/05/2019 Lives in shared apartment as of nov 2018, previou s to that was homeless.Social History Topics Tobacco Use: Yes Cigarettes (Packs/Day ): .5 Alcohol Use: Yes 2 oz/week 4 drinks per week Comment: patient reports dri nking 4 small "nips" bottles Drug Use: Yes Frequency: 5 per week Types: Lindsay hebert Sexually Active: NeverImmunizations Administered Influenza, In Elbert nixon* 06/27/2019 Influenza, Seasonal, Injectable 08/03/2016 0 07/06/2017 Pneumococcal polysaccharide vaccin* 07/01/2014 influenza, injectable, quadr ivalen* 08/27/2018 Name Value Range Interpretation Code Description Data Tessa rce(s) Supporting Document(s ) ID Date Data Source [id number] 09/23/2019 05:20:27 PM [facility] [[email or web address] The [facility] Reason for Visit and Comments: Follow -up for: [92] - Patient state here for follow up visit Blood Pressure [15] - Patien ts blood pressure is elevated , with headachesand palpitations since this mor Santytalmaco (Last Filed):BP 132/78 (Orthostatic Site : Arm - Right, Orthost atic Cu- ff Size : Adult) Pulse 62 Temp 98.2 F (36.8 C) (Ora- l) Resp 18 Ht 5 7" (1.702 m) Wt 154 lb (69.9 kg) - SpO2 100% BMI 24.12 kg/x4Gaerwh History RecordedAmi Cano 09/23/2019 5:20 PM SignedI have identified this patient to be HAZEL Gary -1960.Vitals: 09/21/19 1016 09/21/19 1020BP: (!) 162/92 [...] morning Headache since this morning.Carson Padilla at [facility] today to have blood drawn. 1 lav, 1 sst tubessent to bioreferance lab. He tolera stefanie the procedure well and will return tot clinic for results.Cherie Wilde MAKirkpatrick SowmyaDO 09/23/2019 5:20 PM SignedSUBJECTIVE:HPI : I have identified this patient to be Carson Padilla, HAZEL -1960 w/ aPMHx of asth ma, HTN, on MMT, schizoaffective disorder, who presents forChief ComplaintPatient p resents with Follow-up for: Patient state here for follow up visit Blood Pressure Patients blood pressure is elevated , with headaches and palpitations sincethis mor drew#left ear pain - about 1 week, concerned [...] (69.9 kg) | SpO2 100% | B KS 24.12kg/mThe patient appears well, in no apparent [...] making model asapplicable, the following plan was [place] in collaboration with the patient(and/or his/her guardian [...] IMMUNOCHEMISTRY3. Need for prophylactic vaccination with combined ngcgmzfceo-jawfswi-tafgjjbns(DTP) vaccin e- TDAP VACCINE 7 YRS/> IM; [...] LIPID PANELFuture AppointmentsDate Time Provid er Department Wqogst7909/25/2019 2:00 PM Tomasa Del Castillo, PMHNP [facility] 10:00 AM Sowmya Zamorano DO [facility] Pako Huitron MedicinePrimary Diagnosis:M54.32 Left sided sciatica Other Diagnoses:Z12.11 Special screening for malignant neoplasms, colon Z23 Need fo r prophylactic vaccination with ifvsvtaiccouxwnumf-omhjcfa-avpzfddgk (DT P) vaccine R63.4 Weight lossPrescriptions as [...] by mouth nightly clotrimazole 1 % Apply furnace erector ally * 45 g 2 07/12/2019 10/10/2019 [...] history of intranasal drug abuse [place] house: [phone] x [phone]; social services manager neyda Murphy Patient s cell phone: [phone] 02/05/2019 Lives in shared apartment as of nov 2018, previous to at was homeless.Social History Topics Tobacco Use: Yes Cigarettes (P acks/Day): .5 Alcohol Use: Yes 2 oz/week 4 drinks per week Comment : patient reports drinking 4 small "nips" bottles Drug Use: Yes Freq uency: 5 per week Types: Marijuana Sexually Active: NeverImmunizations Administered Influenza, Injectable, Madin Wentworth* Influenza, Seasonal, Injectable 08/03/2016 07/06/2017 Pneumococcal p olysaccharide vaccin* 07/01/2014 influenza, injectable, quadrivalen* Name Value Range Interpretation Code Description Data Tessa rce(s) Supporting Document(s ) ID Date Data Source [id number] 09/22/2019 06:56:00 AM EST The [facility] Name Value Range Interpretation Description Data Sup porting Code Source(s) Document(s ) HEMOGLOBIN A1C 5.4 % <5.7 The [facility] HEMOGLOBIN A1c AND eAG REFERENCE RANGES A1c(%) DIABETES CATEGORY* <5.7 Normal (non-diabetic) 5.7-6.4 Increased ri sk of diabetes =>6.5 Consistent with diabetes A1c(%) eAG(ESTIMATED AVERAGE PLASMA GLUCOSE)(mg/dL) 6 126 7 154 8 183 9 212 10 240 11 269 12 298 *recom [place] Diabetes Association(2010) NOTE: The amount of gl ycated hemoglobin as measured by the HbA1c test may be overestimated in [place] and should not be used as the sole parameter of glycemic burden. Similarly, hemolysis, genetic hemoglobin variants and chemically modified hemoglo bin derivatives (as seen in renal failure, smoking, aspirin use) may also affect glycated hemoglobin levels. ID Date Data Source [id number] 09/22/2019 06:18:00 AM EST [facility] Name Value Range Interpretation Description Data Sup porting Code Source(s) Document(s ) WHITE BLOOD 6.92 3.66-10. The CELL (WBC) x10(3)/u 60 [place] COUNT L [facility] RED BLOOD CELL 4.48 3.94-5.7 The (RBC) COUNT x10(6)/u 6 [place] L [facility] HEMOGLOBIN 12.9 12.0-16. The g/dL 9 [facility] HEMATOCRIT 40.3 % 34.6-49. The 6 [facility] MCV 90.0 fL 78.0-98. The 0 [facility] MCH 28.8 pg 25.8-33. The 1 [facility] MCHC 32.0 31.7-35. The g/dL 3 [facility] RDW 14.3 % 12.2-15. The 3 [facility] POLYS 60.0 % 34.9-75. The 3 [facility] POLYS, ABS. 4.15 1.30-7.0 The COUNT x10(3)/u 0 [place] L [facility] LYMPHOCYTES 28.2 % 14.0-51. The 8 [facility] LYMPHS, ABS. 1.95 0.80-3.0 The COUNT x10(3)/u 0 [place] L [facility] MONOCYTES 9.4 % 3.5-13.2 The [facility] MONOS, ABS. 0.65 0.00-1.0 The COUNT x10(3)/u 0 [place] L [facility] EOSINOPHILS 2.0 % 0.0-6.2 The [facility] EOS, ABS. COUNT 0.14 0.00-0.4 The x10(3)/u 0 [place] L [facility] BASOPHILS 0.3 % 0.0-1.0 The [facility] BASOS, ABS. 0.02 0.00-0.1 The COUNT x10(3)/u 0 [place] L [facility] IMMATURE 0.1 % 0.0-1.0 The GRANULOCYTES [facility] PLATELETS 270 140-425 The x10(3)/u [place] L [facility] MPV 9.7 fL 8.6-12.1 The [facility] ID Date Data Source [id number] 09/22/2019 03:19:00 AM EST The [facility] Name Value Range Interpretation Description Data Sup porting Code Source(s) Document(s ) CHOLESTEROL 180 <200 The mg/dL [facility] HDL CHOLESTEROL 61 mg/dL >40 The [facility] TRIGLYCERIDES 124 <150 The mg/dL [facility] HDL % OF 34 % >14 The CHOLESTEROL [facility] Evaluation: BELOW AVERAGE RISK CHOL/HDL RATIO 3.0 NA <7.4 [facility] [place] [facility] Evaluation: BELOW AVERAGE RISK HDL/LDL RATIO 1.54 NA <3.56 The [place] [facility] LDL CHOLESTEROL 94 mg/dL <100 The [facility] VLDL CHOLESTEROL ARNOL 25 mg/dL 7-32 [facility] HDL CHOL. (LDL+VLDL) 119 mg/dL <130 [facility] Date Data Source [id number] 09/22/2019 03:19:00 AM EST The [facility] Name Value Range Interpretation Description Data Sup porting Code Source(s) Document(s ) PROTEIN, 7.3 g/dL 5.9-8.4 The TOTAL, SERUM [facility] ALBUMIN 4.1 g/dL 3.5-5.2 The [facility] GLOBULIN, 3.2 g/dL 1.7-3.7 The TOTAL [facility] A/G RATIO 1.3 1.1-2.9 The Ratio [facility] SODIUM 144 135-147 The mmol/L [facility] POTASSIUM 4.7 3.5-5.5 The mmol/L [facility] CHLORIDE 104 96-108 The mmol/L [facility] CARBON DIOXIDE 26 22-29 The mmol/L [facility] UREA NITROGEN 11 mg/dL 6-20 The (BUN) [facility] CREATININE 0.87 0.67-1.3 The mg/dL 1 [facility] EGFR 95 >or=60 The mL/min [facility] EGFR 110 >or=60 The [place] mL/min [facility] BUN/CREATININE 12.6 10.0-28. The RATIO Ratio 0 [facility] CALCIUM 9.4 8.6-10.4 The mg/dL [facility] BILIRUBIN, 0.3 <1.2 The TOTAL mg/dL [facility] ALKALINE 153 U/L 40-156 The PHOSPHATASE [facility] AST (SGOT) 95 U/L <40 Above high normal The [facility] ALT (SGPT) 135 U/L <41 Above high normal The [facility] GLUCOSE 95 mg/dL 70-99 The [facility] ID Date Data Source [id number] 07/19/2019 01:13:04 PM EDT [facility] Reason for Visit and Comments: Physic al [...] oz (71.5 kg) SpO2 96% BMI 24.68 kg/j3ZpzlwpTavia Park 07/19/2019 1:13 PM SignedI have identified this patient to be HAZEL Daigle -1960.Chief Com plaintPatient presents with Physical patient [...] have identified this pa tient to be HAZEL Daigle -1960.Chief ComplaintPatient present s with Physical patient [...] mouth 2 (two) times a day Nystatin 976077 UNIT/GM Apply exte* 60 g 2 02/05/2019 [...] 9Reviewed by: Tavia Park - ReviewedLevel of Service:[id number] OFFIC/OUTPT VISIT E &M EST LOW-MOD SEVER* [...] history of intranasal drug abuse Susan house: [phone] x [phone]; social services manager neyda Murphy Patient s cell phone: [phone] 02/05/2019 Lives in shared apartment as of [...] Supporting Document(s ) ID Date Data Source [id number] 05/30/2019 01:28:15 PM EDT [facility] [place] [facility] Reason for Visit and Comments: Hand [...] 100% BMI 26.47 kg- /m2Vit als History RecordedDada Dang PA 05/30/2019 1:28 PM SignedI have identif ied this patient to be HAZEL Daigle -1960.Walk-inChief ComplaintPatient presents with Hand Pain Patient [...] been using power with no reliefReview Of Systemse s: negativeEars/Nose/Throat: negativeRespiratory: negativeCardiovas cular: negativeSkin: right middle finger swelling, see abovePatient Active Proble m ListDiagnosis Schizoaffective disorder (HCC) Hypertension Back pain Neck nadia n Asthma Breast mass Opioid dependence on agonist therapy ([facility]) Health care maint enance Tobacco abuseNo Known [...] Every Day Smoker Packs/day: 0.50 Smokeless tobacco: Neve r UsedSubstance and Sexual Activity Alcohol use: Yes [...] e Gets together: Not on file Attends rastafari service: Not on file Active m ember [...] tory of intranasal drug abuse Susan house: [phone] x [phone]; social services manager gifty Murphy Patient s cell phone: [phone] 02/05/2019 Lives in shared apartment as o [...] identified this patient to be Carson Dolllori, -1960.Chief ComplaintPatient present s with Hand Pain [...] (20 mg total) by mouth daily Nystatin [id number] UNIT/GM Apply exte* 60 g 2 02/05/2019 [...] by: Dada Dang PA - ReviewedLevel of Service:17104.0* PROCEDURE BILLING ONLY Historical Information ----- ------Past [...] history of intranasal drug abuse Susan house: [phone] x [phone]; social services manager janique mcCulla Patient s cell phone: 02/05/2019 Lives in [...] EDT Health Cigarettes 03/11/2020 UNK completed The [place] smoked current 12:00:00 AM For Famil y (pack per day) - EDT Health Reported Smoking 03/11/2020 Current every completed Current every day The [place] 12:00:00 AM day smoker smoker For Family EDT Health Tobacco smoking 03/11/2020 Current every The In stitute status NHIS 12:00:00 AM day smoker For Family EDT Health Cigarettes 03/11/2020 UNK The [place] smoked current 12:00:00 AM For Famil y (pack per day) - EDT Health Reported Tobacco use and 03/11/2020 Never used The Insti tute exposure 12:00:00 AM For Family EDT Health Alcohol intake 02/07/2020 Current The Instit la posta 12:00:00 AM drinker of For Family EDT alcohol Health (finding) Tobacco smoking 02/07/2020 Current every The In stitute status NHIS 12:00:00 AM day smoker For Family EDT Health Cigarettes 02/07/2020 UNK The [place] smoked current 12:00:00 AM For Famil y (pack per day) - EDT Health Reported Tobacco use and 02/07/2020 Never used The Insti tute exposure 12:00:00 AM For Family EDT Health Tobacco use and 09/21/2019 Never used The Insti tute exposure 12:00:00 AM For Family EST Health Cigarettes 09/21/2019 UNK The [place] smoked current 12:00:00 AM For Famil y (pack per day) - EST Health Reported Alcohol intake 09/21/2019 Current The Instit la posta 12:00:00 AM drinker of For Family EST alcohol Health (finding) Tobacco smoking 09/21/2019 Current every The In stitute status NHIS 12:00:00 AM day smoker For Family EST Health Alcohol intake 07/19/2019 Current completed Current drinker The I nstitute 12:00:00 AM drinker of of alcohol For Family EDT alcohol (finding) Health (finding) Cigarettes 07/19/2019 UNK completed The [place] smoked current 12:00:00 AM For Famil y (pack per day) - EDT Health Reported Tobacco smoking 07/19/2019 Current every completed Current every day The [place] status NHIS 12:00:00 AM day smoker smoker For Family EDT Health Alcohol intake 05/30/2019 Current completed Current drinker The I nstitute 12:00:00 AM drinker of of alcohol For Family EDT alcohol (finding) Health (finding) Cigarettes 05/30/2019 UNK completed The [place] smoked current 12:00:00 AM For Famil y (pack per day) - EDT Health Reported Smoking 05/30/2019 Current every completed Current every day The [place] 12:00:00 AM day smoker smoker For Family EDT Health Vital Signs ID Date Data Source UNK Name Value Range Interpretation Code Description Data Source(s) Body weight 71.215 kg 71.215 kg The [facility] Body height 170.2 cm 170.2 cm The [facility] Body temperature 37.11 Tamie 37.11 Tamie The Inst itute For [facility] Health Heart rate 72 /min 72 /min The [facility] Diastolic blood 91 mm[Hg] 91 mm[Hg] The Insti tute pressure For Family Health Systolic blood 151 mm[Hg] 151 mm[Hg] The Instit la posta pressure For Family Health Diastolic blood 78 mm[Hg] 78 mm[Hg] The Insti tute pressure For Family Health Systolic blood 132 mm[Hg] 132 mm[Hg] The [facility] la posta pressure For Family Health Oxygen saturation 100 % 100 % The Ins titute in Arterial blood For [facility] tod by Pulse oximetry Health Body weight 69.854 kg 69.854 kg The [facility] Body height 170.2 cm 170.2 cm The [place] [facility] Respiratory rate 18 /min 18 /min The Inst itute For [facility] Body temperature 36.78 Tamie 36.78 Tamie The [facility] Heart rate 62 /min 62 /min The [place] [facility] Oxygen saturation 96 % 96 % The Ins titute in Arterial blood For Fam tod by Pulse oximetry [facility] Body mass index 24.68 kg/m2 24.68 kg/m2 The Ins titute (BMI) [Ratio] For Family Health Body weight 71.487 kg 71.487 kg The [place] Measured For [facility] Body height 170.2 cm 170.2 cm The [facility] Body temperature 36.78 Tamie 36.78 Tamie The Inst itute For [facility] Heart rate 54 /min 54 /min The [place] [facility] Diastolic blood 67 mm[Hg] 67 mm[Hg] The Insti tute pressure For Family Health Systolic blood 108 mm[Hg] 108 mm[Hg] The Instit la posta pressure For [facility] Body mass index 25.82 kg/m2 25.82 kg/m2 The Ins titute (BMI) [Ratio] For Family Health Body weight 72.576 kg 72.576 kg The [place] Measured For [facility] Body temperature 36.89 Tamie 36.89 Tamie The Inst itute For [facility] Heart rate 76 /min 76 /min The [place] [facility] Diastolic blood 76 mm[Hg] 76 mm[Hg] The Insti tute pressure For Family Health Systolic blood 106 mm[Hg] 106 mm[Hg] The Instit la posta pressure For [facility] Oxygen saturation 100 % 100 % The Ins titute in Arterial blood For Fam tod by Pulse oximetry [facility] Body mass index 26.47 kg/m2 26.47 kg/m2 The Ins titute (BMI) [Ratio] For Family Health Body weight 74.39 kg 74.39 kg The [place] Measured For [facility] Body height 167.6 cm 167.6 cm The [place] [facility] Respiratory rate 19 /min 19 /min The Inst itute For [facility] Body temperature 36.39 Tamie 36.39 Tamie The Inst itute For [facility] Heart rate 62 /min 62 /min The [facility] Diastolic blood 84 mm[Hg] 84 mm[Hg] The Insti tute pressure For Family Health Systolic blood 135 mm[Hg] 135 mm[Hg] The Instit la posta pressure For Family Health Patient Treatment Plan of Care Planned Activity Planned Date Details Description Data Source (s) Ketoconazole 20 MG/ML 06/29/2020 The In stitute For Topical Cream 12:00:00 AM [facility] ALBUTEROL SULFATE (VENTOLIN 06/29/2020 The [place] For HFA) 108 (90 Base) MCG/ACT 12:00:00 AM [facility] hospital Inhalation Aero Soln Aspirin 81 MG Delayed 06/29/2020 The In stitute For Release Oral Tablet 12:00:00 AM [facility] gabapentin 300 MG Oral 06/29/2020 The I nstitute For Capsule 12:00:00 AM [facility] Lisinopril 20 MG Oral 06/29/2020 The In stitute For Tablet 12:00:00 AM [facility] 60 ACTUAT mometasone 06/29/2020 The Ins titute For furoate 0.2 MG/ACTUAT Dry 12:00:00 AM Critical access hospital Powder Inhaler Glecaprevir-Pibrentasvir 06/29/2020 The [place] For 100-40 MG Oral Tab 12:00:00 AM Critical access hospital PARoxetine HCl 40 MG Oral 06/01/2020 Th e [place] For Tab 12:00:00 AM [facility] aripiprazole 10 MG Oral 06/01/2020 The [place] For Tablet 12:00:00 AM [facility] gabapentin 300 MG Oral 06/01/2020 The I nstitute For Capsule 12:00:00 AM [facility] gabapentin 300 MG Oral 03/10/2020 The I nstitute For Capsule 12:00:00 AM [facility] PARoxetine HCl 40 MG Oral 03/10/2020 Th e [place] For Tab 12:00:00 AM [facility] aripiprazole 10 MG Oral 03/10/2020 The [place] For Tablet 12:00:00 AM [facility] NARCAN KIT 02/28/2020 [facility] [place] [facility] (VENTOLIN 02/05/2020 The [place] For HFA) 108 (90 Base) MCG/ACT 12:00:00 AM Critical access hospital Inhalation Aero Soln Aspirin 81 MG Delayed 02/05/2020 The In stitute For Release Oral Tablet 12:00:00 AM [facility] Lisinopril 20 MG Oral 02/05/2020 The In stitute For Tablet 12:00:00 AM [facility] atorvastatin 10 MG Oral 02/05/2020 The [place] For Tablet 12:00:[facility] ACTUAT mometasone 12/17/2019 The Ins titute For furoate 0.2 MG/ACTUAT Dry 12:00:00 AM [facility] Powder Inhaler Nutritional Supplements 07/12/2019 The [place] For (ENSURE COMPLETE) Oral 12:00:00 AM [facility] Liquid Respiratory Therapy 07/12/2019 The Inst itute For Supplies (NEBULIZER 12:00:00 AM [facility] COMPRESSOR) Does not apply Kit Lisinopril 20 MG Oral 07/12/2019 The In stitute For Tablet 12:00:00 AM [facility] atorvastatin 10 MG Oral 07/12/2019 The [place] For Tablet 12:00:00 AM [facility] Aspirin 81 MG Delayed 07/12/2019 The In stitute For Release Oral Tablet 12:00:00 AM [facility] ALBUTEROL SULFATE (VENTOLIN 07/12/2019 The [place] For HFA) 108 (90 Base) MCG/ACT 12:00:00 AM Critical access hospital Inhalation Aero Soln gabapentin 300 MG Oral 07/12/2019 The I nstitute For Capsule 12:00:00 AM [facility] 120 ACTUAT Fluticasone 07/12/2019 The I nstitute For propionate 0.11 MG/ACTUAT 12:00:00 AM Critical access hospital Metered Dose Inhaler Clotrimazole 10 MG/ML 07/12/2019 The In stitute For Topical Cream 12:00:00 AM [facility] th Albuterol 0.83 MG/ML 07/12/2019 The Ins titute For Inhalant Solution 12:00:00 AM Critical access hospital PARoxetine HCl 40 MG Oral 07/01/2019 Th e [place] For Tab 12:00:00 [facility] aripiprazole 10 MG Oral 07/01/2019 The [place] For Tablet 12:00:00 AM [facility] FLUCELVAX QUADRIVALENT 06/27/2019 The I nstitute For Intramuscular Suspension 12:00:00 AM Critical access hospital lidocaine (XYLOCAINE) 1 % 05/30/2019 Th e [place] For injection 01:30:[facility] Clotrimazole 10 MG/ML 05/30/2019 The [facility] stitute For Topical [facility] MG / 05/30/2019 Th e [place] For Trimethoprim 160 MG Oral 12:00:00 AM [facility] hospital Tablet PARoxetine HCl 40 MG Oral 02/25/2019 e [place] For Tab 12:00:00 [facility] aripiprazole 10 MG Oral 02/25/2019 The [place] For Tablet 12:00:00 AM [facility] Nystatin 100 UNT/MG Topical 02/05/2019 The [place] For Powder 12:00:00 AM [facility] ALBUTEROL SULFATE 108 (90 02/05/2019 Th e [place] For Base) MCG/ACT Inhalation 12:00:00 AM Critical access hospital Aero Soln 120 ACTUAT Fluticasone 02/05/2019 The I nstitute For propionate 0.11 MG/ACTUAT 12:00:00 AM Critical access hospital Metered Dose Inhaler Lisinopril 20 MG Oral 02/05/2019 The In stitute For Tablet 12:00:00 AM [facility] Aspirin 81 MG Delayed 02/05/2019 The In stitute For Release Oral Tablet 12:00:00 AM EDT [facility] atorvastatin 10 MG Oral 02/05/2019 The [place] [facility]
--- OUTSIDE RECORDS SUMMARY | 2020-07-28 14:34 | XMS ---
:1960 Author Organization [facility] Care Team Providers Name Role Phone Bryn De Leon Unavailable Alayna Anne Unavailable Vicky Hendrickson (R) Unavailable Cristian Metzger Unavailable NURSING, FM Unavailable Unavailable Antwon Unavailable JULIANA Unavailable Unavailable Behrouzi Unavailable Lona, (R) Unavailable [...] is protected by Article 27-F of the [facility] Public Health law. If you continue you may haveaccess to information: Regarding HIV / AIDS; Provided by facilities licensed or operated by the [facility] Office of Mental Health; or Provided by the [facility] Office for People With Developmental Disabilities. If such information is present, then the following [facility] mandated warning applies: This information has been [...] law may result in a fine or long term sentence or both. A general authorization for the release of medical or other information is NOT sufficient authorization for further disclosure. Allergies and Adverse Reactions Type Description Substance Reaction Status Data Source(s ) SYSTEMIC NO KNOWN ALLERGIES NO KNOWN ALLERGIES [facility] SYSTEMIC ALLERGIES NOT ON FILE ALLERGIES NOT ON The [facility] Encounters Encounter Providers Location Date Indications Data Source(s ) Outpatient Attender: Rob 06/30/2020 [facility] [place] 09:28:[facility] 09:51:46 AM EDT Patient admitted. Outpatient Attender: Vicky 06/26/2020 11:16:35 AM The [facility] Patient admitted. Outpatient Attender: JACQUE ANDREWS 06/01/2020 02:02:36 PM The [facility] Patient admitted. Outpatient Attender: Rob 06/01/2020 01:17:53 PM The [facility] Patient admitted. Outpatient Attender: JACQUE ANDREWS 06/01/2020 11:56:13 AM The [facility] Patient admitted. Outpatient Attender: JACQUE ANDREWS 04/28/2020 03:50:15 PM The [facility] Patient admitted. Outpatient Attender: Vicky 04/22/2020 03:55:12 PM The [facility] Patient admitted. Outpatient Attender: JACQUE ANDREWS 03/11/2020 02:08:46 PM The [facility] - 03/12/2020 01:05:33 [facility] PM EDT Patient admitted. Outpatient Attender: Alayna Anne 03/10/2020 04:59:07 PM The [facility] Patient admitted. Outpatient Attender: Rob 03/10/2020 09:06:01 AM The [facility] Patient admitted. Outpatient Attender: Vicky 02/27/2020 11:28:52 AM [facility] Patient admitted. Outpatient Attender: JACQUE ANDREWS 02/26/2020 05:01:36 PM The [facility] Patient admitted. Outpatient Attender: JACQUE ANDREWS 02/19/2020 12:00:00 AM The [facility] - 02/19/2020 05:40:08 [facility] PM EDT Patient admitted. Outpatient Attender: Sowmya 02/12/2020 09:03:35 AM The [facility] Patient admitted. Outpatient Attender: JACQUE ANDREWS 02/12/2020 12:00:00 AM The [facility] - 02/12/2020 11:10:00 [facility] AM EDT Patient admitted. Outpatient Attender: Vicky 02/07/2020 08:24:02 AM [facility] 02/07/2020 [facility] 12:08:31 PM EDT Patient admitted. Outpatient Attender: Vicky 02/05/2020 08:44:37 AM [facility] 02/05/2020 [facility] 04:16:41 PM EDT Patient admitted. Outpatient Attender: JACQUE ANDREWS 02/05/2020 12:00:00 AM The [facility] - 02/05/2020 11:11:14 [facility] AM EDT Patient admitted. Outpatient Attender: Vicky 02/04/2020 01:31:46 PM The [facility] Patient admitted. Outpatient Attender: Pranav Kapoor 01/28/2020 08:24:29 AM EDT The [facility] 01/28/2020 10:09:32 AM Health EDT Patient admitted. Outpatient Attender: JACQUE ANDREWS 01/28/2020 12:00:00 AM The [facility] - 01/28/2020 12:10:56 [facility] EDT Patient admitted. Outpatient Attender: Karen 01/27/2020 03:16:52 PM The [facility] Patient admitted. Outpatient Attender: Dada Dang 01/16/2020 08:24:13 AM The [facility] 01/16/2020 [facility] 07:15:16 PM EDT Patient admitted. Outpatient Attender: Sowmya 12/17/2019 09:48:15 AM The [facility] Patient admitted. Outpatient Attender: Sowmya 11/20/2019 04:25:56 PM The [facility] Patient admitted. Outpatient Attender: JULIETTE 09/26/2019 01:22:45 PM The [facility] Patient admitted. Outpatient Attender: Sowmya 09/21/2019 09:54:17 AM The [facility] Patient admitted. Outpatient Attender: Tomasa Del Castillo 09/05/2019 01:26:37 PM The [facility] Patient admitted. Outpatient Attender: Tomasa Del Castillo 08/29/2019 05:15:18 PM The [facility] Patient admitted. Outpatient Attender: Tomasa Del Castillo 08/07/2019 12:35:29 PM The [facility] - 08/07/2019 [facility] 01:30:45 PM EDT Patient admitted. Outpatient Attender: Bryn 07/23/2019 03:38:[address] [facility] Patient admitted. Outpatient Attender: Bryn 07/12/2019 03:55:16 PM The [facility] - 07/19/2019 [facility] 01:13:04 PM EDT Patient admitted. Outpatient Attender: Tomasa Del Castillo 07/01/2019 01:15:41 PM The [facility] - 07/01/2019 [facility] 01:28:43 AM EDT Patient admitted. Outpatient Attender: Dada Dang 05/30/2019 11:36:41 AM The [facility] - 05/30/2019 [facility] 01:28:15 PM EDT Patient admitted. Immunizations Vaccine Date Status Description Data Source(s) Influenza, 06/27/2019 completed Influenza, 06/27/2019 The In stitute Injectable, Madin 12:00:00 AM EDT Injectable, Madin For Family [place] Canine [place] Canine [facility] Kidney, Kidney, Quadrivalent Quadrivalent Medications Medication Brand Start Product Dose Route Administrative Pharmacy [facility] Indications Reaction Description Data Name Date Form Instructions Instructions Source(s) Glecaprevir [id number] Oral active Hep C w/o Ta ke 3 The -Pibrentasv 2019 {tbl} coma, tablets by [place] ir 100-40 12:00: chronic mouth amarilys y For Family MG Oral Tab 00 AM (HCC) Health EDT Hep C w/o coma, chronic (HCC) Aspirin aspirin 06/29/2020 81 Oral active Essential T gamaliel The 81 MG 81 MG 12:00:00 AM mg hypertension ONE [place] Delayed Oral EC EDT tablet For Fam tod Release tablet (81 mg Health Oral total) Tablet by aspirin mouth 81 MG daily Oral EC tablet Essential hypertension ALBUTEROL 7307-3444-49 06/29/2020 216 Inhalation active Mod erate Inhale The SULFATE 12:00:00 AM ug persistent TWO [place] (VENTOLIN EDT asthma puffs For Fam tod HFA) 108 without (216 Health (90 Base) complication mcg MCG/ACT total) Inhalation every Aero Soln 4-5 hours Moderate persistent asthma without compl ication Ketoconazole Ketoconazole 2 06/29/2020 active [place] a Apply The 20 MG/ML % Apply 12:00:00 AM crdiomedess twic e [place] Topical Cream externally EDT daily as For Family Ketoconazole 2 Cream needed to Health % Apply affected externally area Cream Tinea cruris gabapentin Gabapentin 06/29/2020 300 Oral active Schizoaffe ctive Take ONE The 300 MG Oral 300 MG Oral 12:00:00 AM mg disorder, capsule [facility] Capsule Cap EDT bipolar type (300 mg F or Family Gabapentin (HCC) total) Health 300 MG Oral by mouth Cap 2 (two) times a day Schizoaffective disorder, bipolar type ( HCC) Lisinopril lisinopril 06/29/2020 20 Oral active Essential Take The 20 MG Oral 20 MG Oral 12:00:00 AM mg hypertensio n ONE [place] Tablet tablet EDT tablet For Famil y lisinopril (20 mg Health 20 MG Oral total) tablet by mouth daily Essential hypertension 60 ACTUAT Mometasone 06/29/2020 220 Inhalation active Mild asthma, Inhale The mometasone Furoate 220 12:00:00 AM ug unspecifie d ONE puff [place] furoate 0.2 MCG/INH EDT whether (220 mc [...] MG Oral 12:00:00 AM mg disorder, ONE [place] Tablet Tab EDT bipolar type tablet For Family Aripiprazole (HCC) (10 mg Heal th 10 MG Oral total) Tab by mouth daily Schizoaffective disorder, bipolar type ( HCC) PARoxetine [address]-7 06/01/2020 40 Oral active Schizoaf fective Take The HCl 40 MG 12:00:00 AM mg disorder, ONE [place] Oral Tab EDT bipolar type tablet F or Family (HCC) (40 mg Health total) by mouth daily Schizoaffective disorder, bipolar type ( HCC) gabapentin Gabapentin 06/01/2020 300 Oral aborted Schizoaff ective Take ONE The 300 MG Oral 300 MG Oral 12:00:00 AM mg disorder, capsule [place] Capsule Cap EDT bipolar type (300 mg F or Family Gabapentin (HCC) total) Health 300 MG Oral by mouth Cap 2 (two) times a day Schizoaffective disorder, bipolar type ( HCC) gabapentin Gabapentin 03/10/2020 300 Oral aborted Schizoaff ective Take ONE The 300 MG Oral 300 MG Oral 12:00:00 AM mg disorder, capsule [place] Capsule Cap EDT bipolar type (300 mg F or Family Gabapentin (HCC) total) Health 300 MG Oral by mouth Cap 2 (two) times a day Schizoaffective disorder, bipolar type ( HCC) Take ONE capsule (300 mg total) by mouth 2 (two) times a day PARoxetine [address]-5 03/10/2020 40 Oral aborted Schizoa ffective Take The HCl 40 MG 12:00:00 AM mg disorder, ONE [place] Oral Tab EDT bipolar type tablet F or Family (HCC) (40 mg Health total) by mouth daily Schizoaffective disorder, bipolar type ( HCC) Take ONE tablet (40 mg total) by mouth d daniel aripiprazole Aripiprazole 03/10/2020 10 Oral aborted Schiz oaffective Take The 10 MG Oral 10 MG Oral 12:00:00 AM mg disorder, ONE [place] Tablet Tab EDT bipolar type tablet For [...] MG 12:00:00 AM mg unspecif ied tablet [place] Tablet Oral Tab EDT hyperlipidemia (10 mg For Family Atorvastatin type total) Healt h Calcium 10 MG by mouth Oral Tab nightly Hyperlipidemia, unspecified hyperlipidem ia type Take ONE tablet (10 mg total) by mouth n ightly Lisinopril lisinopril 02/05/2020 20 Oral aborted Essential Take The 20 MG Oral 20 MG Oral 12:00:00 AM mg hypertensio n ONE [place] Tablet tablet EDT tablet For Famil y lisinopril (20 mg Health 20 MG Oral total) tablet by mouth daily Essential hypertension Take ONE tablet (20 mg total) by mouth renetta sanchez Aspirin aspirin 02/05/2020 81 Oral aborted Essential Take The 81 MG 81 MG 12:00:00 AM mg hypertension ONE [place] Delayed Oral EC EDT tablet For Fam tod Release tablet (81 mg Health Oral total) Tablet by aspirin mouth 81 MG daily Oral EC tablet Essential hypertension Take ONE tablet (81 mg total) by mouth renetta sanchez ALBUTEROL [id number] 02/05/2020 216 Inhalation aborted Mo derate Inhale The SULFATE 12:00:00 AM ug persistent TWO [place] (VENTOLIN EDT asthma puffs For Fam tod HFA) 108 without (216 Health (90 Base) complication mcg MCG/ACT total) Inhalation every Aero Soln 4-5 hours Moderate persistent asthma without compl ication Inhale TWO puffs (216 mcg total) every 4 -5 hours PARoxetine [address]-8 01/16/2020 40 Oral completed Schiz oaffective Take The HCl 40 MG 12:00:00 AM mg disorder, ONE [place] Oral Tab EDT bipolar type tablet F or Family (HCC) (40 mg Health total) by mouth daily Schizoaffective disorder, bipolar type ( HCC) Take ONE tablet (40 mg total) by mouth d aily gabapentin Gabapentin 12/17/2019 300 Oral completed S chizoaffective Take ONE The 300 MG Oral 300 MG Oral 12:00:00 AM mg disorder, capsule [place] Capsule Cap EST bipolar type (300 mg [...] 12:00:00 AM ug unspecifie d ONE puff [place] furoate 0.2 MCG/INH EST whether (220 mc [...] 12:00:00 AM ug unspecifie d ONE puff [place] furoate 0.2 MCG/INH EST whether (220 mc [...] 12:00:00 AM mg persistent ( 2.5 mg [place] Inhalant MG/3ML) EDT asthma total) via For [...] for shortness of breath or cough Respiratory [id number] 07/12/2019 active Moderate Use with The Therapy 12:00:00 AM persistent albu terol [facility] Supplies EDT asthma solution For F amily (NEBULIZER without every 4-6 H ealth COMPRESSOR) complication hours as Does not needed apply Kit Moderate persistent asthma without compl ication Use with albuterol solution every 4-6 ho urs as needed Nutritional [id number] 07/12/2019 1 Oral active Unintent ional Take 1 The Supplements 12:00:00 AM {can} weight loss Can by [place] (ENSURE EDT mouth For Family COMPLETE) 2 Health Oral Liquid (two) times a day Unintentional weight loss Take 1 Can by mouth 2 (two) times a day atorvastatin Atorvastatin 07/12/2019 10 Oral complet ed Hyperlipidemia, Take ONE The 10 MG Oral Calcium 10 MG 12:00:00 AM mg unspecif ied tablet [place] Tablet Oral Tab EDT hyperlipidemia (10 mg For Family Atorvastatin type total) Healt h Calcium 10 MG by mouth Oral Tab nightly Hyperlipidemia, unspecified hyperlipidem ia type Take ONE tablet (10 mg total) by mouth n ightly 120 ACTUAT Fluticasone 07/12/2019 110 Inhalation completed Moderate Inhale The Fluticasone Propionate 12:00:00 AM ug persistent ONE [place] propionate HFA (FLOVENT EDT asthma puff For Family 0.11 HFA) 110 without (110 Health MG/ACTUAT MCG/ACT complication mcg Metered Dose Inhalation total) Inhaler Aerosol 2 (two) Fluticasone times a Propionate day HFA (FLOVENT HFA) 110 MCG/ACT Inhalation Aerosol Moderate persistent asthma without compl ication Inhale ONE puff (110 mcg total) 2 (two) times a day ALBUTEROL [id number] 07/12/2019 216 Inhalation completed Moderat e Inhale The SULFATE 12:00:00 AM ug persistent TWO [place] (VENTOLIN EDT asthma puffs For Fam tod HFA) 108 without (216 Health (90 Base) complication mcg MCG/ACT total) Inhalation every Aero Soln 4-5 hours Moderate persistent asthma without compl ication Inhale TWO puffs (216 mcg total) every 4 -5 hours Aspirin aspirin 07/12/2019 81 Oral completed Essential Take The 81 MG 81 MG 12:00:00 AM mg hypertension ONE [place] Delayed Oral EC EDT tablet For Fam tod Release tablet (81 mg Health Oral total) Tablet by aspirin mouth 81 MG daily Oral EC tablet Essential hypertension Take ONE tablet (81 mg total) by mouth d aily Clotrimazole clotrimazole 1 07/12/2019 completed P aronychia Apply to The 10 MG/ML % Apply 12:00:00 AM of right af fected [place] Topical Cream externally EDT middle are twice For Family clotrimazole 1 cream finger daily H ealth % Apply externally cream Paronychia of right middle finger Apply to affected are twice daily Lisinopril lisinopril 07/12/2019 20 Oral completed Essenti al Take The 20 MG Oral 20 MG Oral 12:00:00 AM mg hypertensio n ONE [place] Tablet tablet EDT tablet For Famil y lisinopril (20 mg Health 20 MG Oral total) tablet by mouth daily Essential hypertension Take ONE tablet (20 mg total) by mouth d aily gabapentin Gabapentin 07/12/2019 300 Oral completed S chizoaffective Take ONE The 300 MG Oral 300 MG Oral 12:00:00 AM mg disorder, capsule [place] Capsule Cap EDT bipolar type (300 mg F or Family Gabapentin (HCC) total) Health 300 MG Oral by mouth Cap 2 (two) times a day Schizoaffective disorder, bipolar type ( HCC) Take ONE capsule (300 mg total) by mouth 2 (two) times a day PARoxetine [id number] 07/01/2019 40 Oral completed Schiz oaffective Take The HCl 40 MG 12:00:00 AM mg disorder, ONE [place] Oral Tab EDT bipolar type tablet F or Family (HCC) (40 mg Health total) by mouth daily Schizoaffective disorder, bipolar type ( HCC) Take ONE tablet (40 mg total) by mouth d aily aripiprazole Aripiprazole 07/01/2019 10 Oral aborted Schiz oaffective Take The 10 MG Oral (ABILIFY) 10 12:00:00 AM mg disorder, ONE [place] Tablet MG Oral Tab EDT bipolar type tab let For Family Aripiprazole (HCC) (10 mg Heal th (ABILIFY) 10 total) MG Oral Tab by mouth daily Schizoaffective disorder, bipolar type ( HCC) FLUCELVAX 03262-879-60 06/27/2019 active DIRECTED The QUADRIVALENT 12:00:00 AM INTRA MUSCULARLY [place] Intramuscular EDT For Fa edmund [facility] Health DIRECTED INTRAMUSCULARLY lidocaine [id number] 05/30/2019 25 Subcutaneous complete d Paronychia The (XYLOCAINE) 01:30:00 PM mg of right [place] 1 % EDT middle For Family injection finger Health Paronychia of right middle finger Clotrimazole clotrimazole 1 05/30/2019 aborted Par onychia Apply to The 10 MG/ML % Apply 12:00:00 AM of right af fected [place] Topical Cream externally EDT middle are twice For Family clotrimazole 1 cream finger daily H ealth % Apply externally cream Paronychia of right middle finger Sulfamethoxazole 800 MG / Sulfamethoxazole-Trimethoprim 05/30/2019 1 Oral active Paronychia Take The Trimethoprim 160 MG Oral (BACTRIM DS) 800-160 MG Oral 12:00:00 AM {tbl} of right ONE [place] Tablet Tab EDT middle tablet For Famil y Sulfamethoxazole-Trimethoprim [facility] (BACTRIM DS) 800-160 MG Oral mouth 2 Tab (two) times a day for 10 days for 10 days Paronychia of right middle finger aripiprazole Aripiprazole 02/25/2019 10 Oral aborted Schiz oaffective Take The 10 MG Oral (ABILIFY) 10 12:00:00 AM mg disorder, ONE [place] Tablet MG Oral Tab EDT bipolar type tab let For Family Aripiprazole (HCC) (10 mg Heal th (ABILIFY) 10 total) MG Oral Tab by mouth daily Schizoaffective disorder, bipolar type ( HCC) PARoxetine [address]-3 02/25/2019 40 Oral aborted Schizoa ffective Take The HCl 40 MG 12:00:00 AM mg disorder, ONE [place] Oral Tab EDT bipolar type tablet F or Family (HCC) (40 mg Health total) by mouth daily Schizoaffective disorder, bipolar type ( HCC) ALBUTEROL 03009 02/05/2019 216 Inhalation aborted Moderate Inhale TWO The SULFATE 108 12:00:00 AM ug persistent puffs (216 [place] (90 Base) EDT asthma mcg total) Fo r Family MCG/ACT without every 4-6 Heal th Inhalation complication (four- six) Aero Soln hours as needed Moderate persistent asthma without compl ication 120 ACTUAT Fluticasone 02/05/2019 110 Inhalation aborted Mo derate Inhale The Fluticasone Propionate 12:00:00 AM ug persistent ONE [place] propionate HFA (FLOVENT EDT asthma puff For [...] MG 12:00:00 AM mg unspecif ied tablet [place] Tablet Oral Tab EDT hyperlipidemia (10 mg For Family Atorvastatin type total) Healt h Calcium 10 MG by mouth Oral Tab nightly Hyperlipidemia, unspecified hyperlipidem ia type Nystatin 100 Nystatin 02/05/2019 completed Tinea p laura, Apply to The UNT/MG [id number] 12:00:00 AM unspecified af fected [place] Topical UNIT/GM EDT laterality area For Family Powder Apply twice Health Nystatin externally daily [id number] Powder UNIT/GM Apply externally Powder Tinea pedis, unspecified laterality Apply to affected area twice daily Lisinopril lisinopril 02/05/2019 20 Oral aborted Essential Take The 20 MG Oral 20 MG Oral 12:00:00 AM mg hypertensio n ONE [place] Tablet tablet EDT tablet For Famil y lisinopril (20 mg Health 20 MG Oral total) tablet by mouth daily Essential hypertension Aspirin aspirin 02/05/2019 81 Oral aborted Essential Take The 81 MG 81 MG 12:00:00 AM mg hypertension ONE [place] Delayed Oral EC EDT tablet For Fam tod Release tablet (81 mg Health Oral total) Tablet by aspirin mouth 81 MG daily Oral EC tablet Essential hypertension Insurance Providers Payer name Policy type Policy ID Covered Covered democrat's Policy P marisa / Coverage democrat ID relationship to [employer] ormation type [employer] [id number] SP [id number] H [place]ID [place] [id number] Self [id number] [place] [id number] Self [id number] [employer] [id number] Self [id number] [employer] [id number] Self [id number] [employer] HARP [id number] [place]ICAID [place] Medicaid 125 125 MEDICAID [place] Medicaid 125 125 [employer] HAR [id number] Problems, Conditions, and Diagnoses Code Display Name Description Problem Type Effective Data Dates Source(s) F11.21 Opioid use Opioid use [id number] 02/05/2020 The [place] disorder, moderate, disorder, moderate, 12:00:0 0 AM For Family in early remission, in early remission, EDT Health on maintenance on maintenance therapy therapy B18.2 Hep C w/o coma, Hep C w/o coma, [id number] 02/05/2020 The [facility] chronic chronic 12:00:00 AM For Family EDT Health R74.0 Transaminitis Transaminitis [id number] 09/23/2019 [facility] [place] 12:00:00 AM For Family EST Health B35.6 Tinea cruris Tinea cruris Diagnosis 06/26/2020 The [facility] [place] 11:16:35 AM For Family EDT Health Transfer Note Transfer Note Diagnosis 06/01/2020 [facility] [place] 02:02:36 PM For Family EDT Health Missed Appointment Missed Appointment Diagnosis 0 The [facility] 03:50:15 PM For Family EDT Health B18.2 Chronic viral Chronic viral Diagnosis 04/23/2020 [facility] [place] hepatitis C hepatitis C 02:37:43 PM For Family EDT Health M54.30 Sciatica, Sciatica, Diagnosis 02/27/2020 The [place] unspecified side unspecified side 11:28:52 AM F or Family EDT Health Z29.9 Encounter for Encounter for Diagnosis 02/27/2020 [facility] [place] prophylactic prophylactic 11:28:52 AM For Famil y measures, measures, EDT Health unspecified unspecified F11.20 Opioid dependence, Opioid dependence, Diagnosis 0 The [facility] uncomplicated uncomplicated 11:28:52 AM For [facility] EDT Health Enrollment Enrollment Diagnosis 02/19/2020 The [place] 11:40:37 AM For Family EDT Health Schizoaffective Schizoaffective Diagnosis 02/19/2020 The [place] Disorder Disorder 11:40:37 AM For Family EDT Health Virtual Visit Virtual Visit Diagnosis 02/19/2020 [facility] [place] (Telephone Only) (Telephone Only) 11:40:37 AM F or Family EDT Health Request For Appt Request For Appt Diagnosis 02/12/2020 Th e [place] 09:03:35 AM For Family EDT Health R35.0 Frequency of Frequency of Diagnosis 02/07/2020 The [facility] [place] micturition micturition 08:24:02 AM For Family EDT Health Z12.11 Encounter for Encounter for Diagnosis 02/07/2020 [facility] [place] screening for screening for 08:24:02 AM For Fam tod malignant neoplasm malignant neoplasm EDT Health of colon of colon R10.32 Left lower quadrant Left lower quadrant Diagnosis 020 The [facility] pain pain 08:24:02 AM For Family EDT Health Physical Physical Diagnosis 02/07/2020 The [facility] 08:24:02 AM For Family EDT Health F11.21 Opioid dependence, Opioid dependence, Diagnosis 0 The [facility] in remission in remission 03:39:34 PM For Famil y EDT Health E78.5 Hyperlipidemia, Hyperlipidemia, Diagnosis 02/05/2020 The [place] unspecified unspecified 08:44:37 AM For Family EDT Health M10.00 Idiopathic gout, Idiopathic gout, Diagnosis 02/05/2020 Th e [place] unspecified site unspecified site 08:44:37 AM F or Family EDT Health N48.9 Disorder of penis, Disorder of penis, Diagnosis 0 The [place] unspecified unspecified 08:44:37 AM For Family EDT Health F17.200 Nicotine Nicotine Diagnosis 02/05/2020 The [place] dependence, dependence, 08:44:37 AM For Family unspecified, unspecified, EDT Health uncomplicated uncomplicated M54.32 Sciatica, left side Sciatica, left side Diagnosis 020 The [facility] 08:44:37 AM For Family EDT Health M54.31 Sciatica, right Sciatica, right Diagnosis 02/05/2020 The [facility] side side 08:44:37 AM For Family EDT Health Z71.89 Other specified Other specified Diagnosis 02/05/2020 The [facility] counseling counseling 08:44:37 AM For Family EDT Health Other Other Diagnosis 02/04/2020 The [facility] 01:31:46 PM For Family EDT Health Z71.3 Dietary counseling Dietary counseling Diagnosis 0 The [facility] and surveillance and surveillance 08:24:29 AM F or Family EDT Health Z68.22 Body mass index Body mass index Diagnosis 01/28/2020 The [facility] (BMI) 22.0-22.9, (BMI) 22.0-22.9, 08:24:29 AM F or Family adult adult EDT Health R63.3 Feeding Feeding Diagnosis 01/28/2020 The [facility] difficulties difficulties 08:24:29 AM For Famil y EDT Health Outreach Outreach Diagnosis 01/27/2020 The [facility] 03:16:52 PM For Family EDT Health Results Results Diagnosis 09/26/2019 The [facility] 01:22:45 PM For Family EST Health Refill Follow-up Refill Follow-up Diagnosis 09/26/2019 Th e [place] 01:22:45 PM For Family EST Health R74.0 Nonspecific Nonspecific Diagnosis 09/23/2019 [facility] elevation of levels elevation of levels 03:08:3 0 PM For Family of transaminase and of transaminase and EST Health lactic acid lactic acid dehydrogenase [LDH] dehydrogenase (ldh) R63.4 Abnormal weight Abnormal weight Diagnosis 09/21/2019 The [facility] loss loss 09:54:17 AM For Family EST [facility] Z23 Encounter for Encounter for Diagnosis 09/21/2019 [facility] itute immunization immunization 09:54:17 AM For Famil y EST [facility] Follow-up for: Follow-up for: Diagnosis 09/21/2019 The In stitute 09:54:17 AM For Family EST Health Discharge Discharge Diagnosis 09/05/2019 [facility] 01:26:37 PM For Family EST Health Z12.2 Encounter for Encounter for Diagnosis 07/12/2019 [facility] itute screening for screening for 03:55:16 PM For Fam tod malignant neoplasm malignant neoplasm EDT Health of respiratory of respiratory organs organs L03.011 Cellulitis of right Cellulitis of right Diagnosis 019 The [facility] finger finger 03:55:16 PM For Family EDT Health Needs Letter Needs Letter Diagnosis 07/12/2019 The [facility] [place] 03:55:16 PM For Family EDT Health Surgeries/Procedures Procedure Description Date Indications Data Source(s) CBC WITH CBC WITH Routine 02/07/2020 Hep C 02/07/2020 Hep C The DIFFERENTIAL DIFFERENTIAL 9:16 AM EDT w/o 09:16:00 A M w/o [place] AND PLATELETS AND PLATELETS coma, EDT coma , For Family chronic chronic Health (HCC) (HCC) Hep C w/o coma, chronic (HCC) HEP A HEP A Routine 02/07/2020 Hep C w/o 02/07/2020 Hep C w/ o The AB.,TOTAL AB.,TOTAL 9:16 AM EDT coma, 09:16:00 AM coma , [facility] W/ REFLEX W/ REFLEX chronic EDT chronic For Family (HCC) (HCC) Health Hep C w/o coma, chronic (HCC) 4TH GEN HIV 4TH GEN HIV Routine 02/07/2020 Hep C w/o 02/07/2020 Hep C The TEST-IFH TEST-IFH 9:16 AM EDT coma, 09:16:00 AM w/o [facility] RECOMMENDED RECOMMENDED chronic EDT coma, For Family (HCC) chronic Health (HCC) Hep C w/o coma, chronic (HCC) HEP B HEP B Routine 02/07/2020 Hep C w/o 02/07/2020 Hep C w/ o The CORE AB, CORE AB, 9:16 AM EDT coma, 09:16:00 AM coma, [facility] IGG IGG chronic EDT chronic For Fami [...] AM EDT coma, 09:16:00 AM coma , [facility] PANEL PANEL chronic EDT chronic For Fami ly (HCC) (HCC) Health Hep C w/o coma, chronic (HCC) HGA1C (HGB HGA1C (HGB Routine 02/07/2020 Urinary 02/07/2020 Urin melanie The GLYCOSYLATED) GLYCOSYLATED) 9:16 AM EDT frequency 09:16: 00 AM frequency [place] EDT For Fami ly Health Urinary frequency PROTHROMBIN PROTHROMBIN Routine 02/07/2020 Hep C w/o 02/07/2020 Hep C The TIME WITH INR TIME WITH INR 9:16 AM EDT coma, 09:16:00 AM w/o [facility] chronic EDT coma, For Fami ly (HCC) chronic Health (HCC) Hep C w/o coma, chronic (HCC) TDAP TDAP Routine 09/21/2019 Need for prophylactic 019 Need for prophylactic The VACCINE VACCINE 11:07 AM vaccination with combined 11:07 :06 AM vaccination with combined [facility] 7/> YR SQ IMM EST szmdlbxryo-qwkitmr-lcufmigyv EST eiopzxtfro-admscnj-mpkfbknsp For Family IM CLINIC (DTP) vaccine (DTP) vacc ine Health Need for prophylactic vaccination with c ombined ooargsxcaa-cncznxr-ctsgevmdk (DTP) vaccine COMP COMP Routine 09/21/2019 Weight 09/21/2019 Weight Th e METABOLIC METABOLIC 11:06 AM EST loss 11:06:00 AM los s [facility] PANEL PANEL EST For Fami ly Health Weight loss CBC WITH CBC WITH Routine 09/21/2019 Weight 09/21/2019 Weight The DIFFERENTIAL DIFFERENTIAL 11:06 AM EST loss 11:06:00 AM loss [place] AND PLATELETS AND PLATELETS EST For Family Health Weight loss HGA1C (HGB HGA1C (HGB Routine 09/21/2019 Weight 09/21/2019 Weig ht The GLYCOSYLATED) GLYCOSYLATED) 11:06 AM loss 11:06:00 AM loss [place] EST EST For Famave ly Health Weight loss LIPID LIPID Routine 09/21/2019 Weight 09/21/2019 Weight Th e PANEL PANEL 11:06 AM EST loss 11:06:00 AM loss [place] EST For Fami ly Health Weight loss Results ID Date Data Source [id number] 07/23/2020 10:15:00 AM EDT [facility] Name Value Range Interpretation Description Data Sup porting Code Source(s) Document(s ) SARS [facility] coronavirus 2 RNA This lab was ordered by [facility] Daya Moya and reported by [facility]. ID Date Data Source [id number] 02/07/2020 12:08:33 PM EDT [facility] Reason for Visit and Comments: Paige ulgo [83]Vitals (Last Filed):BP 151/91 (Orthostatic Site : Arm - Left, Orthostatic Pos- ition : Sitting, Orthostatic Cuff Size : Large Adult) P- ulse 72 Temp 98.8 F (37.1 C) (Oral) Ht 5 7" (1.702- m) Wt 157 lb (71.2 kg) BMI 24.59 kg/c1AdwygfKacy Meier 02/07/2020 12:08 PM SignedI have identified [...] old male with history ofPatient Active P [place] [facility] Diagnosis Date Noted? Hep C w/o [...] Is followed by pain man agement in [place]- is given Percocet.? Asthma 07/01/2014 Moderate persistent. [...] PCR, QUANTFu ture AppointmentsDate Time Provider Department [place]02/12/2020 10:45 AM Jac[facility] [place]02/24/2020 9:40 AM Rob Metzger, PMHNP FPPSY[facility] [place]02/28/2020 8:45 AM Vicky Hendrickson MD [facility]03/11/2020 3:[address] MD [facility] LILIBETHYaron Hu Diagnosis:R10.32 Left lower quadrant [...] by: Dada Dang PA - ReviewedLevel of Service:96809 OFFIC /OUTPT VISIT E&M EST LOW-MOD SEVER* [...] y of intranasal drug abuse Susan house: [phone] x [phone]; social contact worker neyda Krishnan ent s cell phone: [phone] 02/05/2019 Lives in shared apartment as of [...] Supporting Document(s ) ID Date Data Source [id number] 02/13/2020 11:41:00 AM EDT [facility] Name Value Range Interpretation Description Data Sup porting Code Source(s) Document(s ) OCCULT BLOOD NEGATIVE NEGATIVE The IMMUNOCHEM [facility] ID Date Data Source [id number] 02/12/2020 04:52:00 PM EDT [facility] Name Value Range Interpretation Description Data Sup porting Code Source(s) Document(s ) HEPATITIS C Type 3 See Below The GENOTYPE [facility] NOTE: Hepatitis C Virus Genotype/Subtype assay is an FDA approved assay able to identify the following subtypes: 1a , 1b, 1, 2, 3, 4, 5, 6. ASSAY INFORMATION: Test# 2161 (Hepatitis C Genotype) perfor med using Siemens Versant(R) HCV Genotype 2.0 Assay (LiPA) . ID Date Data Source [id number] 02/11/2020 01:37:00 PM EDT [facility] Name Value Range Interpretation Description Data Sup porting Code Source(s) Document(s ) BILIRUBIN, TOTAL 0.4 mg/dL <1.2 [facility] G-GTP 20 U/L 10-71 [facility] ALT (SGPT) 42 U/L <41 Above high The normal [facility] APOLIPOPROTEIN 164 mg/dL 104-202 The A1 [facility] HAPTOGLOBIN 138 mg/dL 30-200 [facility] NAMPT-4-CBAZLYWC 248 mg/dL 130-300 The BULIN [facility] FIBROSIS SCORE 0.24 NA [facility] FIBROSIS STAGE F0-F1 [facility] FIBROSIS INTERP no The fibrosis [facility] NECROINFLAMMAT 0.22 NA The ACTIVITY SCORE [facility] NECROINFLAMMAT A0-A1 The ACTIVITY GRADE [facility] NECROINFLAMMAT no The INTERP activity [facility] FIBROSIS AND NECROINFLAMMATION SCORES AND INTERPR ETATIONS FibroTest Score Metavir Score0.00-0.21 F0 no fibrosis0.22-0.27 F0-F10.28-0.31 F1 minimal fibrosis0.32-0.48 F1-F20.49-0.58 F2 moderate fibrosis0.59-0.72 F3 advanced fibrosis0.73-0.74 F3-F40.75-1.00 F4 severe fibrosis ActiTest Score Metavir Score0.00-0.17 A0 no activity0.18-0.29 A0-A10.30-0.36 A1 min imal activity0.37-0.52 A1-A20.53-0.60 A2 significant activity0.61-0.62 A2-A30.63-1.00 A3 severe activity Performed By: [facility] [address] P: [phone] Precautions:The reliability of results is dependent on compliance with the preanal ytical and analytical conditions recommendedby Cytocentricsredictive.The tests have to be deferred for: acute [...] and Cirrhosis in Chronic Hepatitis B: A Cerrillos-Analysis. Am J Gastroenterol 2014; 109:796-809. 2. Shay Granado, et al. The impact of liver disease aetiology and the stages of hepatic fibrosis on the performance of non invasive fibrosis markers: an international study of 2411 cases. Aliment Pharmacol Ther 2011 ;34:7180-6139. ID Date Data Source [id number] 02/10/2020 01:56:00 PM EDT [facility] Name Value Range Interpretation Code Description Data Tessa rce(s) Supporting Document(s ) HEP 59761 <15 Above high normal The Institut e C,RNA,IU IU/mL For [facility] HEP C ULTRAQUANT, RNA INTERPRETATION [...] 4.95 log-10 <1.18 Above high normal The [facility] ID Date Data Source [id number] 02/09/2020 11:29:00 AM EDT [facility] Name Value Range Interpretation Description Data Sup porting Code Source(s) Document(s ) CULTURE, NO GROWTH NO GROWTH The URINE [facility] SITE: URINE ID Date Data Source [id number] 02/08/2020 11:20:00 AM EDT [facility] Name Value Range Interpretation Code Description [...] in some patients. ID Date Data Source [id number] 02/08/2020 11:20:00 AM EDT [facility] Name Value Range Interpretation Description Data Sup porting Code Source(s) Document(s ) HEPATITIS A Non-React Non-Reac The ANTIBODY maya tive [facility] ID Date Data Source [id number] 02/08/2020 11:20:00 AM EDT [facility] Name Value Range Interpretation Description Data Sup porting Code Source(s) Document(s ) HIV 1/2 Non-React Non-React The [place] AB, EIA maya [facility] Assay Information: Assay for the detecti on of HIV p24 antigen and antibodies to Human Immunodeficiency Virus Type 1,including Group O (HIV-1 + "O") and/or T ype 2 (HIV-2) Method: Chemiluminescence (Thrill) ID Date Data Source [id number] 02/08/2020 05:46:00 AM EDT [facility] Name Value Range Interpretation Description Data Sup porting Code Source(s) Document(s ) PROTEIN, 7.2 g/dL 5.9-8.4 The TOTAL, SERUM [facility] ALBUMIN 4.2 g/dL 3.5-5.2 [facility] GLOBULIN, 3.0 g/dL 1.7-3.7 The TOTAL [facility] A/G RATIO 1.4 1.1-2.9 The Ratio [facility] SODIUM 140 135-147 The mmol/L [facility] POTASSIUM 4.4 3.5-5.5 The mmol/L [facility] CHLORIDE 103 96-108 The mmol/L [facility] CARBON DIOXIDE 23 22-29 The mmol/L [facility] UREA NITROGEN 14 mg/dL 6-20 The (BUN) [facility] CREATININE 0.96 0.67-1.3 The mg/dL 1 [facility] EGFR 87 >or=60 The mL/min [facility] EGFR 101 >or=60 The [place] mL/min [facility] BUN/CREATININE 14.6 NA 10.0-28. The RATIO 0 [facility] CALCIUM 9.5 8.6-10.4 The mg/dL [facility] BILIRUBIN, 0.4 <1.2 The TOTAL mg/dL [facility] ALKALINE 74 U/L 40-156 The PHOSPHATASE [facility] AST (SGOT) 44 U/L <40 Above high normal The [facility] ALT (SGPT) 42 U/L <41 Above high normal The [facility] GLUCOSE 109 70-99 Above high normal The mg/dL [facility] ID Date Data Source [id number] 02/08/2020 05:14:00 AM EDT [facility] Name Value Range Interpretation Description Data Sup porting Code Source(s) Document(s ) HEMOGLOBIN A1C 5.5 % <5.7 [facility] HEMOGLOBIN A1c AND eAG REFERENCE RANGES A1c(%) DIABETES CATEGORY* <5.7 Normal (non-diabetic) 5.7-6.4 Increased ri sk of diabetes =>6.5 Consistent with diabetes A1c(%) eAG(ESTIMATED AVERAGE PLASMA GLUCOSE)(mg/dL) 6 126 7 154 8 183 9 212 10 240 11 269 12 298 *recom mended ranges-[place] [employer](2010) NOTE: The amount of gl ycated hemoglobin as measured by the HbA1c test may be overestimated in [place] and should not be used as the sole parameter of glycemic burden. Similarly, hemolysis, genetic hemoglobin variants and chemically modified hemoglo bin derivatives (as seen in renal failure, smoking, aspirin use) may also affect glycated hemoglobin levels. ID Date Data Source [id number] 02/08/2020 02:56:00 AM EDT [facility] Name Value Range Interpretation Description Data Sup porting Code Source(s) Document(s ) PROTIME 10.3 sec 9.1-11.9 [facility] INTR. NORM. 0.92 NA 0.80-1.07 The RATIO(INR) [facility] CLINICAL INDICATIONS FOR INR USE Reference RangeProphylaxis or treatment of venous thrombosis, 2.00-3.00systemic embolization, and pulm onary embolus High-risk patients with mechanical heart valves 2.50-3.50 Normal Non-Medicated Patients 0.80-1.07 NOTE: INR values be low 2.00 for patients on warfarin therapy would be considered sub-therapeu tic for the above conditions. ID Date Data Source [id number] 02/08/2020 02:53:00 AM EDT [facility] Name Value Range Interpretation Description Data Sup porting Code Source(s) Document(s ) SPECIFIC 1.006 NA 1.003-1.03 The GRAVITY, UR 0 [facility] PH, UR 5.5 NA 5.0-8.0 [facility] PROTEIN, NEGATIVE NEGATIVE The TOTAL, RANDOM [facility] GLUCOSE, NEGATIVE NEGATIVE The URINE, QUAL. [facility] KETONE, QUAL. NEGATIVE NEGATIVE [facility] UROBILINOGEN 0.2 mg/dL 0.2-1.0 [facility] BILIRUBIN, NEGATIVE NEGATIVE The URINE [facility] BLOOD, URINE NEGATIVE NEGATIVE [facility] NITRITE, UR NEGATIVE NEGATIVE The (NI) [facility] CRYSTALS NONE NONE [facility] WBC, URINE 0-4 /[HPF] 0-4 [facility] RBC, URINE NONE SEEN NONE SEEN The /[HPF] [facility] CAST, RBC, NONE SEEN 0-1 The URINE /[LPF] [facility] CAST, HYALINE, 0-4 /[LPF] 0-4 The URINE [facility] CAST, NONE NONE-FEW The EPITHELIAL, [facility] CAST, NONE SEEN 0-1 The GRANULAR, /[LPF] [facility] BACTERIA, NONE NONE-FEW The URINE [facility] CRYSTALS, NONE NONE The OTHER, URINE /[HPF] [facility] LEUKOCYTE NEGATIVE NEGATIVE The ESTERASE [facility] COLOR YELLOW YELLOW, [facility] CHARACTER CLEAR CLEAR [facility] ID Date Data Source [id number] 02/08/2020 02:32:00 AM EDT [facility] Name Value Range Interpretation Description Data Sup porting Code Source(s) Document(s ) WHITE BLOOD 7.51 3.66-10. The CELL (WBC) x10(3)/u 60 [facility] L [facility] RED BLOOD CELL 4.64 3.94-5.7 The (RBC) COUNT x10(6)/u 6 [facility] L [facility] HEMOGLOBIN 13.8 12.0-16. The g/dL 9 [facility] HEMATOCRIT 40.6 % 34.6-49. The 6 [facility] MCV 87.5 fL 78.0-98. The 0 [facility] MCH 29.7 pg 25.8-33. The 1 [facility] MCHC 34.0 31.7-35. The g/dL [address] [place] [address] RDW 12.8 % 12.2-15. The 3 [facility] POLYS 57.9 % 34.9-75. The 3 [facility] POLYS, ABS. 4.36 1.30-7.0 The COUNT x10(3)/u 0 [facility] L [facility] LYMPHOCYTES 30.8 % 14.0-51. The 8 [facility] LYMPHS, ABS. 2.31 0.80-3.0 The COUNT x10(3)/u 0 [facility] L [facility] MONOCYTES 8.0 % 3.5-13.2 The [facility] MONOS, ABS. 0.60 0.00-1.0 The COUNT x10(3)/u 0 [facility] L [facility] EOSINOPHILS 2.3 % 0.0-6.2 [facility] EOS, ABS. COUNT 0.17 0.00-0.4 The x10(3)/u 0 [facility] L [facility] BASOPHILS 0.7 % 0.0-1.0 [facility] BASOS, ABS. 0.05 0.00-0.1 The COUNT x10(3)/u 0 [facility] L [facility] IMMATURE 0.3 % 0.0-1.0 The [facility]3] PLATELETS 264 140-425 The x10(3)/u [facility] L For [facility] MPV 10.2 fL 8.6-12.1 [facility] ID Date Data Source [id number] 09/27/2019 01:09:08 PM EST [facility] Reason for Visit and Comments: Refill [...] IDALMISatient left prior to being seen.Primary Diagnos is:32572 LEFT WITHOUT BEING SEENPrescriptions as of 09/27/2019 [...] y of intranasal drug abuse Susan house: [phone] x [phone]; social contact worker neyda castellanos s cell phone: [phone] 02/05/2019 Lives in shared apartment as of [...] Supporting Document(s ) ID Date Data Source [id number] 09/23/2019 05:20:27 PM [facility] Reason for Visit and Comments: Follow [...] (69.9 kg) - SpO2 100% BMI 24.12 kg/z0Arqybk History RecordedAmi Cano 09/23/2019 5:20 PM SignedI [...] morning Headache since this morning.Carson Padilla at [facility] today to have blood drawn. 1 lav, 1 sst tubessent to bioreferance lab. He tolera stefanie the procedure well and will return tot clinic for results.Cherie Wilde MAKirkpatrick SowmyaDO 09/23/2019 5:20 PM SignedSUBJECTIVE:HPI : I have identified this patient to be Carson Pdailla, HAZEL -1960 w/ aPMHx of asth ma, [...] IMMUNOCHEMISTRY3. Need for prophylactic vaccination with combined uojnqeyeqn-ymdqego-oyidvgdgc(DTP) vaccin e- TDAP VACCINE 7 YRS/> IM; [...] LIPID PANELFuture AppointmentsDate Time Provid er Department Ltwjap6209/25/2019 2:00 PM Tomasa Del Castillo, PMHNP [facility]PS[facility] 10:00 AM Sowyma Zamorano DO [facility] [employer]o Huitron MedicinePrimary Diagnosis:M54.32 Left sided sciatica Other Diagnoses:Z12.11 Special screening for malignant neoplasms, colon Z23 Need fo r prophylactic vaccination with rviyvaqkgpeejykscf-zbdefrm-bhfrrriwy (DT P) vaccine R63.4 Weight lossPrescriptions as [...] by mouth nightly clotrimazole 1 % Apply research development manager ally * 45 g 2 07/12/2019 10/10/2019 [...] history of intranasal drug abuse Susan house: [phone] x [phone]; social contact worker neyda Murphy Patient s cell phone: [...] Sexually Active: NeverImmunizations Administered Influenza, Injectable, Madin [place]* Influenza, Seasonal, Injectable 08/03/2016 07/06/2017 Pneumococcal p olysaccharide vaccin* 07/01/2014 influenza, injectable, quadrivalen* Name Value Range Interpretation Code Description Data Tessa rce(s) Supporting Document(s ) ID Date Data Source [id number] 09/22/2019 06:56:00 AM EST [facility] Name Value Range Interpretation Description Data Sup porting Code Source(s) Document(s ) HEMOGLOBIN A1C 5.4 % <5.7 [facility] HEMOGLOBIN A1c AND eAG REFERENCE RANGES A1c(%) DIABETES CATEGORY* <5.7 Normal (non-diabetic) 5.7-6.4 Increased ri sk of diabetes =>6.5 Consistent with diabetes A1c(%) eAG(ESTIMATED AVERAGE PLASMA GLUCOSE)(mg/dL) 6 126 7 154 8 183 9 212 10 240 11 269 12 298 *recom [facility]-[place] [employer](2010) NOTE: The amount of gl ycated hemoglobin as measured by the HbA1c test may be overestimated in [place] and should not be used as the sole parameter of glycemic burden. Similarly, hemolysis, genetic hemoglobin variants and chemically modified hemoglo bin derivatives (as seen in renal failure, smoking, aspirin use) may also affect glycated hemoglobin levels. ID Date Data Source [id number] 09/22/2019 06:18:00 AM EST [facility] Name Value Range Interpretation Description Data Sup porting Code Source(s) Document(s ) WHITE BLOOD 6.92 3.66-10. The CELL (WBC) x10(3)/u 60 [place] COUNT L For [facility] RED BLOOD CELL 4.48 3.94-5.7 The (RBC) COUNT x10(6)/u 6 [place] L For [facility] HEMOGLOBIN 12.9 12.0-16. The g/dL 9 [facility] HEMATOCRIT 40.3 % 34.6-49. The 6 [facility] MCV 90.0 fL 78.0-98. The 0 [facility] MCH 28.8 pg 25.8-33. The 1 [facility] MCHC 32.0 31.7-35. The g/dL 3 [facility] RDW 14.3 % 12.2-15. The 3 [facility] POLYS 60.0 % 34.9-75. The 3 [facility] POLYS, ABS. 4.15 1.30-7.0 The COUNT x10(3)/u 0 [place] L [facility] LYMPHOCYTES 28.2 % 14.0-51. The 8 [facility] LYMPHS, ABS. 1.95 0.80-3.0 The COUNT x10(3)/u 0 [place] L [facility] MONOCYTES 9.4 % 3.5-13.2 The [facility] MONOS, ABS. 0.65 0.00-1.0 The COUNT x10(3)/u 0 [place] L [facility] EOSINOPHILS 2.0 % 0.0-6.2 [facility] EOS, ABS. COUNT 0.14 0.00-0.4 The x10(3)/u 0 [place] L [facility] BASOPHILS 0.3 % 0.0-1.0 The [facility] BASOS, ABS. 0.02 0.00-0.1 The COUNT x10(3)/u 0 [place] L [facility] IMMATURE 0.1 % 0.0-1.0 The GRANULOCYTES [facility] PLATELETS 270 140-425 The x10(3)/u [place] L [facility] MPV 9.7 fL 8.6-12.1 [facility] ID Date Data Source [id number] 09/22/2019 03:19:00 AM EST [facility] Name Value Range Interpretation Description Data Sup porting Code Source(s) Document(s ) CHOLESTEROL 180 <200 The mg/dL [facility] HDL CHOLESTEROL 61 mg/dL >40 The [facility] TRIGLYCERIDES 124 <150 The mg/dL [facility] HDL % OF 34 % >14 The CHOLESTEROL [facility] Evaluation: BELOW AVERAGE RISK CHOL/HDL RATIO 3.0 NA <7.4 The [facility] F or Family [facility] Evaluation: BELOW AVERAGE RISK HDL/LDL RATIO 1.54 NA <3.56 The [place] Fo r Family [facility] LDL CHOLESTEROL 94 mg/dL <100 The [facility] VLDL CHOLESTEROL ARNOL 25 mg/dL 7-32 [facility] CHOL. (LDL+VLDL) 119 mg/dL <130 [facility] ID Date Data Source [id number] 09/22/2019 03:19:00 AM EST [facility] Name Value Range Interpretation Description Data Sup porting Code Source(s) Document(s ) PROTEIN, 7.3 g/dL 5.9-8.4 The TOTAL, SERUM [facility] ALBUMIN 4.1 g/dL 3.5-5.2 The [facility] GLOBULIN, 3.2 g/dL 1.7-3.7 The TOTAL [facility] A/G RATIO 1.3 1.1-2.9 The Ratio [facility] SODIUM 144 135-147 The mmol/L [facility] POTASSIUM 4.7 3.5-5.5 The mmol/L [facility] CHLORIDE 104 96-108 The mmol/L [facility] CARBON DIOXIDE 26 22-29 The mmol/L [facility] UREA NITROGEN 11 mg/dL 6-20 The (BUN) [facility] CREATININE 0.87 0.67-1.3 The mg/dL 1 [facility] EGFR 95 >or=60 The mL/min [facility] EGFR 110 >or=60 The [place] mL/min [facility] BUN/CREATININE 12.6 10.0-28. The RATIO Ratio 0 [facility] CALCIUM 9.4 8.6-10.4 The mg/dL [facility] BILIRUBIN, 0.3 <1.2 The TOTAL mg/dL [facility] ALKALINE 153 U/L 40-156 The PHOSPHATASE [facility] AST (SGOT) 95 U/L <40 Above high normal The [facility] ALT (SGPT) 135 U/L <41 Above high normal The [facility] GLUCOSE 95 mg/dL 70-99 [facility] ID Date Data Source [id number] 07/19/2019 01:13:04 PM EDT [facility] Reason for Visit and Comments: Physic [...] oz (71.5 kg) SpO2 96% BMI 24.68 kg/m5XctypnTavia Park 07/19/2019 1:13 PM SignedI have identified [...] mouth 2 (two) times a day Nystatin [id number] UNIT/GM Apply exte* 60 g 2 02/05/2019 [...] 9Reviewed by: Tavia Park - ReviewedLevel of Service:09347 OFFIC/OUTPT VISIT E &M EST LOW-MOD SEVER* [...] history of intranasal drug abuse Susan house: [phone] x [phone]; social contact worker neyda Murphy Patient s cell phone: [phone] 02/05/2019 Lives in shared apartment as of [...] Supporting Document(s ) ID Date Data Source [id number] 05/30/2019 01:28:15 PM EDT [facility] Reason for Visit and [...] Breast mass Opioid dependence on agonist therapy ([facility]) Health care maint enance Tobacco [...] e Gets together: Not on file Attends yarsanism service: Not on file Active m ember [...] tory of intranasal drug abuse Susan house: [phone] x [phone]; social contact worker gifty Murphy Patient s cell phone: [phone] 02/05/2019 Lives in shared apartment as o [...] (20 mg total) by mouth daily Nystatin 660858 UNIT/GM Apply exte* 60 g 2 02/05/2019 [...] by: Dada Dang PA - ReviewedLevel of Service:52174.0* PROCEDURE BILLING ONLY Historical Information ----- ------Past [...] history of intranasal drug abuse Susan house: [phone] x [phone]; social contact worker janique mcCulla Patient s cell phone: 02/05/2019 [...] EDT Health Cigarettes 03/11/2020 UNK completed The [facility] smoked current 12:00:00 AM For Famil y (pack per day) - EDT Health Reported Smoking 03/11/2020 Current every completed Current every day The [facility] 12:00:00 AM day smoker smoker For Family EDT Health Tobacco smoking 03/11/2020 Current every The In stitute status NHIS 12:00:00 AM day smoker For Family EDT Health Cigarettes 03/11/2020 UNK The [facility] smoked current 12:00:00 AM For Famil y (pack per day) - EDT Health Reported Tobacco use and 03/11/2020 Never used The Insti tute exposure 12:00:00 AM For Family EDT Health Alcohol intake 02/07/2020 Current The [facility] [place] 12:00:00 AM drinker of For Family EDT alcohol Health (finding) Tobacco smoking 02/07/2020 Current every The In stitute status NHIS 12:00:00 AM day smoker For Family EDT Health Cigarettes 02/07/2020 UNK [facility] smoked current 12:00:00 AM For Famil y (pack per day) - EDT Health Reported Tobacco use and 02/07/2020 Never used [facility] exposure 12:00:00 AM For Family EDT Health Tobacco use and 09/21/2019 Never used [facility] exposure 12:00:00 AM For Family EST Health Cigarettes 09/21/2019 UNK [facility] smoked current 12:00:00 AM For Famil y (pack per day) - EST Health Reported Alcohol intake 09/21/2019 Current [facility] [place] 12:00:00 AM drinker of For Family EST alcohol Health (finding) Tobacco smoking 09/21/2019 Current every [facility] status NHIS 12:00:00 AM day smoker For Family EST Health Alcohol intake 07/19/2019 Current completed Current drinker [facility] 12:00:00 AM drinker of of alcohol For Family EDT alcohol (finding) Health (finding) Cigarettes 07/19/2019 UNK completed [facility] smoked current 12:00:00 AM For Famil y (pack per day) - EDT Health Reported Tobacco smoking 07/19/2019 Current every completed Current every day [facility] status NHIS 12:00:00 AM day smoker smoker For Family EDT Health Alcohol intake 05/30/2019 Current completed Current drinker [facility] 12:00:00 AM drinker of of alcohol For Family EDT alcohol (finding) Health (finding) Cigarettes 05/30/2019 UNK completed [facility] smoked current 12:00:00 AM For Famil y (pack per day) - EDT Health Reported Smoking 05/30/2019 Current every completed Current every day [facility] 12:00:00 AM day smoker smoker For Family EDT Health Vital Signs ID Date Data Source UNK Name Value Range Interpretation Code Description Data Source(s) Body weight 71.215 kg 71.215 kg [facility] Body height 170.2 cm 170.2 cm [facility] Body temperature 37.11 Tamie 37.11 Tamie [facility] For [facility] Heart rate 72 /min 72 /min [facility] Diastolic blood 91 mm[Hg] 91 mm[Hg] [facility] pressure For Family Health Systolic blood 151 mm[Hg] 151 mm[Hg] [facility] [place] pressure For [facility] Diastolic blood 78 mm[Hg] 78 mm[Hg] The [facility] pressure For Family Health Systolic blood 132 mm[Hg] 132 mm[Hg] The [facility] [place] pressure For Family Health Oxygen saturation 100 % 100 % The Ins [facility] in Arterial blood For [facility] tod by Pulse oximetry Health Body weight 69.854 kg 69.854 kg [facility] Body height 170.2 cm 170.2 cm [facility] Respiratory rate 18 /min 18 /min [facility] For [facility] Body temperature 36.78 Tamie 36.78 Tamie [facility] For Family [facility] Heart rate 62 /min 62 /min [facility] Oxygen saturation 96 % 96 % The [facility] in Arterial blood For Fam tod by Pulse oximetry [facility] Body mass index 24.68 kg/m2 24.68 kg/m2 [facility] (BMI) [Ratio] For Family Health Body weight 71.487 kg 71.487 kg [facility] Measured For [facility] Body height 170.2 cm 170.2 cm [facility] Body temperature 36.78 Tamie 36.78 Tamie [facility] For [facility] Heart rate 54 /min 54 /min [facility] Diastolic blood 67 mm[Hg] 67 mm[Hg] The [facility] pressure For Family Health Systolic blood 108 mm[Hg] 108 mm[Hg] [facility] [place] pressure For [facility] Body mass index 25.82 kg/m2 25.82 kg/m2 [facility] (BMI) [Ratio] For Family Health Body weight 72.576 kg 72.576 kg [facility] Measured For [facility] Body temperature 36.89 Tamie 36.89 Tamie [facility] For [facility] Heart rate 76 /min 76 /min [facility] Diastolic blood 76 mm[Hg] 76 mm[Hg] The [facility] pressure For Family Health Systolic blood 106 mm[Hg] 106 mm[Hg] [facility] [place] pressure For [facility] Oxygen saturation 100 % 100 % The [facility] in Arterial blood For Fam tod by Pulse oximetry [facility] Body mass index 26.47 kg/m2 26.47 kg/m2 [facility] (BMI) [Ratio] For Family Health Body weight 74.39 kg 74.39 kg [facility] Measured For [facility] Body height 167.6 cm 167.6 cm [facility] Respiratory rate 19 /min 19 /min [facility] For [facility] Body temperature 36.39 Tamie 36.39 Tamie [facility] For [facility] Heart rate 62 /min 62 /min [facility] Diastolic blood 84 mm[Hg] 84 mm[Hg] The [facility] pressure For Family Health Systolic blood 135 mm[Hg] 135 mm[Hg] [facility] [place] pressure For [facility] Patient Treatment Plan of Care Planned Activity Planned Date Details Description Data Source (s) Ketoconazole 20 MG/ML 06/29/2020 [facility] For Topical Cream 12:00:00 AM [facility] ALBUTEROL SULFATE (VENTOLIN 06/29/2020 [facility] For HFA) 108 (90 Base) MCG/ACT 12:00:00 AM [facility] Inhalation Aero Soln Aspirin 81 MG Delayed 06/29/2020 The [facility]it[facility] For Release Oral Tablet 12:00:00 AM [facility] gabapentin 300 MG Oral 06/29/2020 The I [facility]stitute For Capsule 12:00:00 AM [facility] Lisinopril 20 MG Oral 06/29/2020 The [facility] For Tablet 12:00:00 AM [facility] 60 ACTUAT mometasone 06/29/2020 The Ins tit[facility] For furoate 0.2 MG/ACTUAT Dry 12:00:00 AM [facility] Powder Inhaler Glecaprevir-Pibrentasvir 06/29/2020 [facility] For 100-40 MG Oral Tab 12:00:00 AM [facility] PARoxetine HCl 40 MG Oral 06/01/2020 [facility] For Tab 12:00:00 AM [facility] aripiprazole 10 MG Oral 06/01/2020 [facility] For Tablet 12:00:00 AM [facility] gabapentin 300 MG Oral 06/01/2020 The I nstitute For Capsule 12:00:00 AM [facility] gabapentin 300 MG Oral 03/10/2020 The [facility] For Capsule 12:00:00 AM [facility] PARoxetine HCl 40 MG Oral 03/10/2020 [facility] For Tab 12:00:00 AM [facility] aripiprazole 10 MG Oral 03/10/2020 [facility] For Tablet 12:00:00 AM [facility] NARCAN KIT 02/28/2020 [facility] (VENTOLIN 02/05/2020 [facility] For HFA) 108 (90 Base) MCG/ACT 12:00:00 AM [facility] Inhalation Aero Soln Aspirin 81 MG Delayed 02/05/2020 The In stit[facility] For Release Oral Tablet 12:00:00 AM [facility] Lisinopril 20 MG Oral 02/05/2020 The [facility] For Tablet 12:00:00 AM [facility] atorvastatin 10 MG Oral 02/05/2020 [facility] Tablet 12:00:00 [facility] mometasone 12/17/2019 The [facility] tit[facility] For furoate 0.2 MG/ACTUAT Dry 12:00:00 AM [facility] Powder Inhaler Nutritional Supplements 07/12/2019 [facility] For (ENSURE COMPLETE) Oral 12:00:00 AM [facility] Liquid Respiratory Therapy 07/12/2019 The Inst [facility]ute For Supplies (NEBULIZER 12:00:00 AM [facility] COMPRESSOR) Does not apply Kit Lisinopril 20 MG Oral 07/12/2019 The In stit[facility] For Tablet 12:00:00 AM [facility] atorvastatin 10 MG Oral 07/12/2019 [facility] For Tablet 12:00:00 AM [facility] Aspirin 81 MG Delayed 07/12/2019 The In [facility] For Release Oral Tablet 12:00:00 AM [facility] ALBUTEROL SULFATE (VENTOLIN 07/12/2019 [facility] For HFA) 108 (90 Base) MCG/ACT 12:00:00 AM [facility] Inhalation Aero Soln gabapentin 300 MG Oral 07/12/2019 The I nstitute For Capsule 12:00:00 AM [facility] 120 ACTUAT Fluticasone 07/12/2019 The I nstitute For propionate 0.11 MG/ACTUAT 12:00:00 AM [facility] Metered Dose Inhaler Clotrimazole 10 MG/ML 07/12/2019 The [facility] For Topical Cream 12:00:00 AM [facility] th Albuterol 0.83 MG/ML 07/12/2019 The Ins titute For Inhalant Solution 12:00:00 AM [facility] PARoxetine HCl 40 MG Oral 07/01/2019 [facility] For Tab 12:00:00 [facility] aripip[facility]ole 10 MG Oral 07/01/2019 [facility] For Tablet 12:00:00 AM [facility] FLUCELVAX QUADRIVALENT 06/27/2019 The I [facility]stitute For Intramuscular Suspension 12:00:00 AM [facility] lidocaine (XYLOCAINE) 1 % 05/30/2019 [facility] For injection 01:30:00 [facility] Clotrimazole 10 MG/ML 05/30/2019 [facility] For Top[facility] Sulf[facility] 800 MG / 05/30/2019 [facility] For Trimethoprim 160 MG Oral 12:00:00 AM [facility] Tablet PARoxetine HCl 40 MG Oral 02/25/2019 [facility] For Tab 12:00:00 [facility] aripiprazole 10 MG Oral 02/25/2019 [facility] For Tablet 12:00:00 AM [facility] Nystatin 100 UNT/MG Topical 02/05/2019 [facility] For Powder 12:00:00 AM [facility] ALBUTEROL SULFATE 108 (90 02/05/2019 [facility] For Base) MCG/ACT Inhalation 12:00:00 AM [facility] Aero Soln 120 ACTUAT Fluticasone 02/05/2019 The [facility] For propionate 0.11 MG/ACTUAT 12:00:00 AM [facility] Metered Dose Inhaler Lisinopril 20 MG Oral 02/05/2019 The In stitute For Tablet 12:00:00 AM [facility] Aspirin 81 MG Delayed 02/05/2019 The In stit[facility] For Release Oral Tablet 12:00:00 AM EDT [facility] atorvastatin 10 MG Oral 02/05/2019 [facility] Tablet [facility]00:[facility]
[2020-07-28] MEDS: GABAPENTIN 300 MG CAPSULE PO SCH ×2 (15:40→21:57)
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
[2020-07-28] MEDS: LIDOCAINE 5% TOPICAL PATCH TP SCH (18:24)
[2020-07-28] MEDS: MELATONIN 5 MG TABLETS PO SCH (21:57)
[2020-07-28] MEDS: BACITRACIN 0.9 GM PACKET TP SCH (21:57)
[2020-07-28] MEDS: THIAMINE HCL 100 MG TABLET (FP) PO SCH (21:58)
[2020-07-28] MEDS: ACETAMINOPHEN 325 MG TABLET (FP) PO PRN (21:59)
[2020-07-28] MEDS: CLOTRIMAZOLE 1% CREAM 15 GM TUBE TP SCH (21:59)
[2020-07-28] MEDS: AMMONIUM LACTATE 12% LOTION 225 GM BOTTLE TP SCH (22:00)
[2020-07-29] MEDS: GABAPENTIN 300 MG CAPSULE PO SCH ×3 (06:32→21:08)
[2020-07-29] MEDS: METHADONE HCL 10 MG TABLET PO SCH (06:32)
[2020-07-29] MEDS: ACETAMINOPHEN 325 MG TABLET (FP) PO PRN (06:34)
[2020-07-29] MEDS: LIDOCAINE PATCH REMOVAL MC SCH (06:42)
[2020-07-29] MEDS: ASPIRIN 81 MG CHEWABLE TABLETS PO SCH (10:10)
[2020-07-29] MEDS: AMMONIUM LACTATE 12% LOTION 225 GM BOTTLE TP SCH ×2 (10:11→21:09)
[2020-07-29] MEDS: BACITRACIN 0.9 GM PACKET TP SCH ×2 (10:11→21:09)
[2020-07-29] MEDS: PRENATAL VITAMINS W/ FOLIC ACID TABLET (FP) PO SCH (10:12)
[2020-07-29] MEDS: NICOTINE 21 MG/24 HOURS TOPICAL PATCH TD SCH (10:12)
[2020-07-29] MEDS: CLOTRIMAZOLE 1% CREAM 15 GM TUBE TP SCH ×2 (10:12→21:09)
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
[2020-07-29] MEDS: LISINOPRIL 20 MG TABLET PO SCH (11:00)
[2020-07-29] MEDS: ARIPiprazole 10 MG TABLET PO SCH (12:30)
[2020-07-29] MEDS: PARoxetine HCL 20 MG TABLET PO SCH (12:31)
[2020-07-29] MEDS: LIDOCAINE 5% TOPICAL PATCH TP SCH (18:00)
[2020-07-29] MEDS: MELATONIN 5 MG TABLETS PO SCH (21:09)
[2020-07-29] MEDS: METHOCARBAMOL 500 MG TABLET PO PRN (21:09)
[2020-07-29] MEDS: THIAMINE HCL 100 MG TABLET (FP) PO SCH (21:09)
[2020-07-30] MEDS: METHADONE HCL 10 MG TABLET PO SCH (06:19)
[2020-07-30] MEDS: GABAPENTIN 300 MG CAPSULE PO SCH ×3 (06:19→21:07)
[2020-07-30] MEDS: LIDOCAINE PATCH REMOVAL MC SCH (06:20)
[2020-07-30] MEDS ORDERED: PARoxetine HCL 20 MG TABLET PO SCH (10:00)
[2020-07-30] MEDS: ASPIRIN 81 MG CHEWABLE TABLETS PO SCH (10:35)
[2020-07-30] MEDS: PRENATAL VITAMINS W/ FOLIC ACID TABLET (FP) PO SCH (10:35)
[2020-07-30] MEDS: LISINOPRIL 20 MG TABLET PO SCH (10:35)
[2020-07-30] MEDS: NICOTINE 21 MG/24 HOURS TOPICAL PATCH TD SCH (10:35)
[2020-07-30] MEDS: AMMONIUM LACTATE 12% LOTION 225 GM BOTTLE TP SCH ×2 (10:36→21:08)
[2020-07-30] MEDS: BACITRACIN 0.9 GM PACKET TP SCH ×2 (10:36→21:08)
[2020-07-30] MEDS: ARIPiprazole 10 MG TABLET PO SCH (10:36)
[2020-07-30] MEDS: PARoxetine HCL 20 MG TABLET PO SCH (10:36)
[2020-07-30] MEDS: CLOTRIMAZOLE 1% CREAM 15 GM TUBE TP SCH ×2 (10:37→21:08)
[2020-07-30] MEDS: LIDOCAINE 5% TOPICAL PATCH TP SCH (17:26)
[2020-07-30] MEDS: METHOCARBAMOL 500 MG TABLET PO PRN (21:07)
[2020-07-30] MEDS: MELATONIN 5 MG TABLETS PO SCH (21:07)
[2020-07-30] MEDS: THIAMINE HCL 100 MG TABLET (FP) PO SCH (21:51)
[2020-07-31] MEDS: GABAPENTIN 300 MG CAPSULE PO SCH ×3 (06:01→21:43)
[2020-07-31] MEDS: METHADONE HCL 10 MG TABLET PO SCH (06:01)
[2020-07-31] MEDS: LIDOCAINE PATCH REMOVAL MC SCH (06:01)
[2020-07-31] MEDS: NICOTINE 21 MG/24 HOURS TOPICAL PATCH TD SCH (09:46)
[2020-07-31] MEDS: BACITRACIN 0.9 GM PACKET TP SCH ×2 (09:46→21:43)
[2020-07-31] MEDS: PARoxetine HCL 20 MG TABLET PO SCH (09:46)
[2020-07-31] MEDS: LISINOPRIL 20 MG TABLET PO SCH (09:46)
[2020-07-31] MEDS: PRENATAL VITAMINS W/ FOLIC ACID TABLET (FP) PO SCH (09:46)
[2020-07-31] MEDS: ASPIRIN 81 MG CHEWABLE TABLETS PO SCH (09:46)
[2020-07-31] MEDS: ARIPiprazole 10 MG TABLET PO SCH (09:46)
[2020-07-31] MEDS: AMMONIUM LACTATE 12% LOTION 225 GM BOTTLE TP SCH ×2 (09:47→21:44)
[2020-07-31] MEDS: CLOTRIMAZOLE 1% CREAM 15 GM TUBE TP SCH ×2 (09:50→21:44)
[2020-07-31] MEDS: LIDOCAINE 5% TOPICAL PATCH TP SCH (17:36)
[2020-07-31] MEDS ORDERED: PT OWN MED DRAWER 7, Y5N ONE (19:30)
[2020-07-31] MEDS: MELATONIN 5 MG TABLETS PO SCH (21:43)
[2020-07-31] MEDS: THIAMINE HCL 100 MG TABLET (FP) PO SCH (21:43)
[2020-07-31] MEDS: METHOCARBAMOL 500 MG TABLET PO PRN (21:43)
[2020-08-01] MEDS: LIDOCAINE PATCH REMOVAL MC SCH (05:15)
[2020-08-01] MEDS: METHADONE HCL 10 MG TABLET PO SCH (07:17)
[2020-08-01] MEDS: GABAPENTIN 300 MG CAPSULE PO SCH ×3 (07:17→21:14)
[2020-08-01] MEDS: LISINOPRIL 20 MG TABLET PO SCH (10:28)
[2020-08-01] MEDS: BACITRACIN 0.9 GM PACKET TP SCH ×2 (10:28→21:13)
[2020-08-01] MEDS: ASPIRIN 81 MG CHEWABLE TABLETS PO SCH (10:28)
[2020-08-01] MEDS: PRENATAL VITAMINS W/ FOLIC ACID TABLET (FP) PO SCH (10:29)
[2020-08-01] MEDS: AMMONIUM LACTATE 12% LOTION 225 GM BOTTLE TP SCH ×2 (10:29→21:14)
[2020-08-01] MEDS: CLOTRIMAZOLE 1% CREAM 15 GM TUBE TP SCH ×2 (10:29→21:14)
[2020-08-01] MEDS: NICOTINE 21 MG/24 HOURS TOPICAL PATCH TD SCH (10:30)
[2020-08-01] MEDS: ARIPiprazole 10 MG TABLET PO SCH (10:30)
[2020-08-01] MEDS: PARoxetine HCL 20 MG TABLET PO SCH (10:30)
[2020-08-01] MEDS: LIDOCAINE 5% TOPICAL PATCH TP SCH (17:19)
[2020-08-01] MEDS: MELATONIN 5 MG TABLETS PO SCH (21:14)
[2020-08-01] MEDS: THIAMINE HCL 100 MG TABLET (FP) PO SCH (21:14)
[2020-08-02] MEDS: LIDOCAINE PATCH REMOVAL MC SCH (05:30)
[2020-08-02] MEDS: METHADONE HCL 10 MG TABLET PO SCH (07:23)
[2020-08-02] MEDS: GABAPENTIN 300 MG CAPSULE PO SCH ×3 (07:23→23:13)
[2020-08-02] MEDS: PRENATAL VITAMINS W/ FOLIC ACID TABLET (FP) PO SCH (09:47)
[2020-08-02] MEDS: LISINOPRIL 20 MG TABLET PO SCH (09:48)
[2020-08-02] MEDS: PARoxetine HCL 20 MG TABLET PO SCH (09:48)
[2020-08-02] MEDS: ASPIRIN 81 MG CHEWABLE TABLETS PO SCH (09:48)
[2020-08-02] MEDS: ARIPiprazole 10 MG TABLET PO SCH (09:49)
[2020-08-02] MEDS: CLOTRIMAZOLE 1% CREAM 15 GM TUBE TP SCH ×2 (09:49→21:18)
[2020-08-02] MEDS: AMMONIUM LACTATE 12% LOTION 225 GM BOTTLE TP SCH ×2 (09:49→21:18)
[2020-08-02] MEDS: BACITRACIN 0.9 GM PACKET TP SCH ×2 (09:49→21:17)
[2020-08-02] MEDS: NICOTINE 21 MG/24 HOURS TOPICAL PATCH TD SCH (09:49)
[2020-08-02] MEDS: LIDOCAINE 5% TOPICAL PATCH TP SCH (17:05)
[2020-08-02] MEDS: THIAMINE HCL 100 MG TABLET (FP) PO SCH (21:18)
[2020-08-02] MEDS: METHOCARBAMOL 500 MG TABLET PO PRN (21:18)
[2020-08-02] MEDS: MELATONIN 5 MG TABLETS PO SCH (21:18)
[2020-08-03] MEDS: LIDOCAINE PATCH REMOVAL MC SCH (06:18)
[2020-08-03] MEDS: METHADONE HCL 10 MG TABLET PO SCH (06:19)
[2020-08-03] MEDS: METHOCARBAMOL 500 MG TABLET PO PRN ×2 (06:19→21:07)
[2020-08-03] MEDS: GABAPENTIN 300 MG CAPSULE PO SCH ×3 (06:19→21:08)
[2020-08-03] MEDS: ASPIRIN 81 MG CHEWABLE TABLETS PO SCH (10:30)
[2020-08-03] MEDS: LISINOPRIL 20 MG TABLET PO SCH (10:30)
[2020-08-03] MEDS: ARIPiprazole 10 MG TABLET PO SCH (10:30)
[2020-08-03] MEDS: PRENATAL VITAMINS W/ FOLIC ACID TABLET (FP) PO SCH (10:30)
[2020-08-03] MEDS: NICOTINE 21 MG/24 HOURS TOPICAL PATCH TD SCH (10:30)
[2020-08-03] MEDS: PARoxetine HCL 20 MG TABLET PO SCH (10:30)
[2020-08-03] MEDS: CLOTRIMAZOLE 1% CREAM 15 GM TUBE TP SCH ×2 (10:31→21:08)
[2020-08-03] MEDS: AMMONIUM LACTATE 12% LOTION 225 GM BOTTLE TP SCH ×2 (10:32→21:08)
[2020-08-03] MEDS: BACITRACIN 0.9 GM PACKET TP SCH ×2 (10:32→21:08)
[2020-08-03] MEDS: LIDOCAINE 5% TOPICAL PATCH TP SCH (17:46)
[2020-08-03] MEDS: THIAMINE HCL 100 MG TABLET (FP) PO SCH (21:07)
[2020-08-03] MEDS: MELATONIN 5 MG TABLETS PO SCH (21:08)
[2020-08-04] MEDS: METHADONE HCL 10 MG TABLET PO SCH (06:13)
[2020-08-04] MEDS: GABAPENTIN 300 MG CAPSULE PO SCH ×3 (06:14→22:00)
[2020-08-04] MEDS: LIDOCAINE PATCH REMOVAL MC SCH (06:14)
[2020-08-04] MEDS: PARoxetine HCL 20 MG TABLET PO SCH (10:02)
[2020-08-04] MEDS: PRENATAL VITAMINS W/ FOLIC ACID TABLET (FP) PO SCH (10:02)
[2020-08-04] MEDS: LISINOPRIL 20 MG TABLET PO SCH (10:02)
[2020-08-04] MEDS: ASPIRIN 81 MG CHEWABLE TABLETS PO SCH (10:02)
[2020-08-04] MEDS: AMMONIUM LACTATE 12% LOTION 225 GM BOTTLE TP SCH ×2 (10:03→22:01)
[2020-08-04] MEDS: ARIPiprazole 10 MG TABLET PO SCH (10:03)
[2020-08-04] MEDS: CLOTRIMAZOLE 1% CREAM 15 GM TUBE TP SCH ×2 (10:03→22:01)
[2020-08-04] MEDS: BACITRACIN 0.9 GM PACKET TP SCH ×2 (10:03→22:00)
[2020-08-04] MEDS: NICOTINE 21 MG/24 HOURS TOPICAL PATCH TD SCH (10:04)
[2020-08-04] MEDS: LIDOCAINE 5% TOPICAL PATCH TP SCH (17:58)
[2020-08-04] MEDS: MELATONIN 5 MG TABLETS PO SCH (21:59)
[2020-08-04] MEDS: THIAMINE HCL 100 MG TABLET (FP) PO SCH (21:59)
[2020-08-05] MEDS: METHADONE HCL 10 MG TABLET PO SCH (06:19)
[2020-08-05] MEDS: LIDOCAINE PATCH REMOVAL MC SCH (06:19)
[2020-08-05] MEDS: GABAPENTIN 300 MG CAPSULE PO SCH ×3 (06:21→21:12)
[2020-08-05] MEDS: LISINOPRIL 20 MG TABLET PO SCH (09:56)
[2020-08-05] MEDS: ARIPiprazole 10 MG TABLET PO SCH (09:56)
[2020-08-05] MEDS: BACITRACIN 0.9 GM PACKET TP SCH ×2 (09:56→21:12)
[2020-08-05] MEDS: PARoxetine HCL 20 MG TABLET PO SCH (09:56)
[2020-08-05] MEDS: AMMONIUM LACTATE 12% LOTION 225 GM BOTTLE TP SCH ×2 (09:57→21:12)
[2020-08-05] MEDS: PRENATAL VITAMINS W/ FOLIC ACID TABLET (FP) PO SCH (09:57)
[2020-08-05] MEDS: ASPIRIN 81 MG CHEWABLE TABLETS PO SCH (09:57)
[2020-08-05] MEDS: CLOTRIMAZOLE 1% CREAM 15 GM TUBE TP SCH ×2 (09:57→22:03)
[2020-08-05] MEDS: NICOTINE 21 MG/24 HOURS TOPICAL PATCH TD SCH (09:57)
--- NOTE | 2020-08-05 11:37 | PN ---
[facility] Progress Note Note: Pt's one nylon suture off during shaving per pt's report. inner upper suture area healing with no redness, swelling or drainage. disolvable sutures visible. Vital Signs - 24 hr 08/04/20 08/04/20 08/05/20 12:25 18:48 06:08 Temperature 97.7 F Pulse Rate 56 L Respiratory 18 Rate Blood Pressure 105/62 O2 Sat by Pulse 97 95 96 Oximetry (%) 08/05/20 09:09 Temperature Pulse Rate 63 Respiratory Rate Blood Pressure 115/63 O2 Sat by Pulse Oximetry (%) Alert o x 3 nad oob ambulating with steady gaitparticipating in unit activities. Maintain safety
[2020-08-05] MEDS: LIDOCAINE 5% TOPICAL PATCH TP SCH (17:38)
[2020-08-05] MEDS: THIAMINE HCL 100 MG TABLET (FP) PO SCH (21:12)
[2020-08-05] MEDS: MELATONIN 5 MG TABLETS PO SCH (21:12)
[2020-08-05] MEDS: METHOCARBAMOL 500 MG TABLET PO PRN (21:12)
[2020-08-06] MEDS ORDERED: METHADONE HCL 10 MG TABLET PO SCH (06:00)
[2020-08-06 06:14] VITALS: TEMP 97.8
[2020-08-06] MEDS: LIDOCAINE PATCH REMOVAL MC SCH (06:47)
[2020-08-06] MEDS: GABAPENTIN 300 MG CAPSULE PO SCH ×2 (06:48→14:33)
[2020-08-06] MEDS: CLOTRIMAZOLE 1% CREAM 15 GM TUBE TP SCH (10:00)
[2020-08-06] MEDS: LISINOPRIL 20 MG TABLET PO SCH (10:00)
[2020-08-06] MEDS: BACITRACIN 0.9 GM PACKET TP SCH (10:00)
[2020-08-06] MEDS: ASPIRIN 81 MG CHEWABLE TABLETS PO SCH ×2 (10:00)
[2020-08-06] MEDS: PRENATAL VITAMINS W/ FOLIC ACID TABLET (FP) PO SCH (10:00)
[2020-08-06] MEDS: ARIPiprazole 10 MG TABLET PO SCH (10:01)
[2020-08-06] MEDS: PARoxetine HCL 20 MG TABLET PO SCH (10:01)
[2020-08-06] MEDS: NICOTINE 21 MG/24 HOURS TOPICAL PATCH TD SCH (10:02)
[2020-08-06] MEDS: AMMONIUM LACTATE 12% LOTION 225 GM BOTTLE TP SCH (10:03)
[2020-08-06 14:24] VITALS: BP 116/70; PULSE 72
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
== END 2020-08-06 16:00 | disposition home or self-care (01) | DRG 772 ==
LOC: YASAS 14:27 → Y5N 14:28
PROVIDERS: ADMIT Allergy & Immunology; ATTEND Allergy & Immunology
PROC: HZ42ZZZ Group Counseling for Substance Abuse Treatment, Cognitive-Behavioral (ICD-10-PCS; principal; 2020-07-28)
DX: F10.20 Alcohol dependence, uncomplicated (principal); F14.20 Cocaine dependence, uncomplicated; F11.20 Opioid dependence, uncomplicated; F17.210 Nicotine dependence, cigarettes, uncomplicated; F25.0 Schizoaffective disorder, bipolar type; F32.9 Major depressive disorder, single episode, unspecified; I10 Essential (primary) hypertension; E78.5 Hyperlipidemia, unspecified; J45.909 Unspecified asthma, uncomplicated; M54.31 Sciatica, right side; Z91.5 Personal history of self-harm; Z90.49 Acquired absence of other specified parts of digestive tract; Z56.0 Unemployment, unspecified
CPT/HCPCS: 82962